=== PATIENT | male | born 1960 | race Caucasian/White ===

== ENCOUNTER 2019-01-16 13:26 | Inpatient (IN) | payer BC ==
[~2019-01-16] VITALS: Ht 188 cm; Wt 128.9 kg
[2019-01-16] MEDS ORDERED: ondansetron/PF 4mg/2ml inj IV PRN (15:35)
[2019-01-16] MEDS ORDERED: ipratropium/albuterol 3ml nebule NEB PRN (15:35)
--- NOTE | 2019-01-16 16:30 | NUR ---
Received report from [facility]. Pt on their way via helicopter
[2019-01-16 17:00] VITALS: BP 109/63
[2019-01-16] MEDS ORDERED: propofol 1000mg/100ml bottle 100 ML IV PRN ×2 (17:13→17:57)
[2019-01-16] MEDS ORDERED: propofol 1000mg/100ml bottle 100 ML IV ONE (17:15)
[2019-01-16] MEDS: FENTANYL-0.9 % NACL/PF 100 ML IV PRN (17:38)
[2019-01-16 17:41] LABS: ABG BASE EXCESS 4.7 mmol/L (-2.0-3.0); ABG HCO3 29.7 mmol/L (22.0-26.0); ABG PCO2 (T) 47.1 mmHg (35.0-48.0); ABG PH (T) 7.418 (7.350-7.450); ABG PO2 (T) 62.5 mmHg (83-108); FCOHb 0.2 % (0.5-1.5); FO2Hb 91.8 % (94-100); MINUTE VOLUME 12 L/min; PEEP 5 cm H2O; RESPIRATORY RATE 16 b/min; RESPIRATORY RATE (OBSERVED) 23 b/min; TIDAL VOLUME 500 mL; TOTAL HEMOGLOBIN 8.6 G/dl (14.0-18.0)
[2019-01-16 17:44] LABS: BASOPHILS % (AUTO) 0.6 % (0-1); EOSINOPHILS % (AUTO) 0.1 % (0-6); HEMATOCRIT 22.4 % (42.0-52.0); HEMOGLOBIN 7.6 g/dl (14.0-17.9); LYMPHOCYTES # (AUTO) 0.2 X10'3 (1.1-4.8); MEAN CORPUSCULAR HEMOGLOBIN 26.9 PG (27.0-31.0); MEAN CORPUSCULAR HGB CONC 34.1 g/dL (33.0-36.5); MEAN PLATELET VOLUME 6.7 FL (7.4-10.4); MONOCYTES # (AUTO) 0.2 X10'3 (0-0.9); MONOCYTES % (AUTO) 3.4 % (2-12); NEUTROPHILS # (AUTO) 6.7 X10'3 (1.8-7.7); NEUTROPHILS % (AUTO) 92.9 % (42-75); PLATELET COUNT 119 X10'3 (140-440); RED BLOOD COUNT 2.83 X10'6 (4.70-6.10); RED CELL DISTRIBUTION WIDTH 18.7 % (11.5-14.5); WHITE BLOOD COUNT 7.2 X10'3 (4.5-11.0)
--- NOTE | 2019-01-16 17:59 | NUR ---
Received pt from REACH team. Pt transferred from [facility] to bed via slideboard. 2 RN skin check performed with NEMO Major. 2 wounds noted on stomach, blanchable redness on sacrum, cellulitis to lower extremities, excoriation on scrotum. Pt extremely edematous. Repositioned with pillows, labs drawn, propofol and fent reinitiated, and pt connected to ventilator. Pt has triple lumen CVL to right IJ and choudhary catheter. Intermittently attempts to move upper extremities but has not opened eyes or responded purposefully. Will pass information on to shift boss RN
[2019-01-16 18:00] LABS: INR 1.4 INR; PARTIAL THROMBOPLASTIN TIME 53 SECONDS (22-32)
[2019-01-16 18:05] LABS: ALANINE AMINOTRANSFERASE 19 U/L (12-78); ALBUMIN 2.7 G/DL (3.4-5.0); ALKALINE PHOSPHATASE 137 IU/L (46-116); AMYLASE 28 U/L (25-115); ANION GAP 9 (8-16); ASPARTATE AMINO TRANSFERASE 28 U/L (10-37); BILIRUBIN,TOTAL 1.1 MG/DL (0.1-1.0); BLOOD UREA NITROGEN 53 MG/DL (7-18); BUN/CREATININE RATIO 17.3 (5.4-32.0); CALCIUM 8.7 MG/DL (8.5-10.1); CHLORIDE 88 MMOL/L (99-107); CREATININE 3.06 MG/DL (0.60-1.10); GLUCOSE 165 MG/DL (70-104); LIPASE 207 U/L (73-393); MAGNESIUM 2.2 MG/DL (1.5-2.4); PHOSPHORUS 2.6 MG/DL (2.3-4.5); POTASSIUM 3.2 MMOL/L (3.5-5.1); SODIUM 127 MMOL/L (135-145); TOTAL CARBON DIOXIDE 29.6 MMOL/L (24-32); TOTAL PROTEIN 5.4 G/DL (6.4-8.2); eGFR 21 ML/MIN
--- NOTE | 2019-01-16 18:27 | NUR ---
Problems reprioritized. Patient report given, questions answered & plan of care reviewed with NEMO Davis.
[2019-01-16 19:00] VITALS: BP 93/49
[2019-01-16 19:28] LABS: ANISOCYTOSIS 2+; MICROCYTOSIS 1+; PLATELET ESTIMATE DECREASED; TOTAL CELLS COUNTED 100
[2019-01-16 19:29] LABS: POIKILOCYTOSIS FEW; POLYCHROMASIA FEW; TARGET CELLS 1+
[2019-01-16 20:00] VITALS: BP 99/47
[2019-01-16] MEDS ORDERED: docusate sod 100mg capsule PO SCH (20:00)
[2019-01-16] MEDS: furosemide inj 100 ML IV SCH (20:01)
[2019-01-16 22:00] VITALS: BP 96/47
[2019-01-16 23:00] VITALS: BP 96/46
[2019-01-16] MEDS: propofol 1000mg/100ml bottle 100 ML IV PRN (23:40)
[2019-01-17] VITALS (23 sets, daily range): BP systolic 77–120; BP diastolic 40–73
[2019-01-17] MEDS ORDERED: piperacillin/tazo 3.375gm/50ml 50 ML IV SCH
[2019-01-17 01:32] LABS: HEMOGLOBIN A1C 5.1 % (4.5-6.2)
[2019-01-17 01:56] LABS: CLARITY,URINE CLOUDY (Clear); COLOR,URINE YELLOW (Yellow); GLUCOSE, URINE NEGATIVE (Neg); KETONES,URINE TRACE mg/dl (Neg); LEUKOCYTE ESTERASE ,URINE SMALL (Neg); NITRITES, URINE NEGATIVE (Neg); OCCULT BLOOD,URINE MODERATE (Neg); PROTEIN,URINE 100 mg/dl (Neg); UROBILINOGEN,URINE 0.2 E.U/dL (0.2-1.0)
[2019-01-17 02:00] LABS: BASOPHILS % (AUTO) 0.3 % (0-1); EOSINOPHILS # (AUTO) 0.1 X10'3 (0-0.9); EOSINOPHILS % (AUTO) 1.3 % (0-6); HEMATOCRIT 22.1 % (42.0-52.0); HEMOGLOBIN 7.4 g/dl (14.0-17.9); LYMPHOCYTES # (AUTO) 0.3 X10'3 (1.1-4.8); LYMPHOCYTES % (AUTO) 5.5 % (21-51); MEAN CORPUSCULAR HEMOGLOBIN 26.8 PG (27.0-31.0); MEAN CORPUSCULAR HGB CONC 33.6 g/dL (33.0-36.5); MEAN CORPUSCULAR VOLUME 79.5 FL (78-98); MEAN PLATELET VOLUME 7.1 FL (7.4-10.4); MONOCYTES # (AUTO) 0.2 X10'3 (0-0.9); NEUTROPHILS # (AUTO) 4.6 X10'3 (1.8-7.7); NEUTROPHILS % (AUTO) 88.9 % (42-75); PLATELET COUNT 98 X10'3 (140-440); RED BLOOD COUNT 2.78 X10'6 (4.70-6.10); RED CELL DISTRIBUTION WIDTH 18.4 % (11.5-14.5); WHITE BLOOD COUNT 5.1 X10'3 (4.5-11.0)
[2019-01-17 02:05] LABS: UA COLLECTION TYPE FOLEY CATH
[2019-01-17 02:07] LABS: BACTERIA,URINE NONE SEEN /HPF (Neg); MUCUS STRANDS FEW /LPF (Neg); SQUAMOUS EPITHELIAL CELL,UR NONE SEEN /LPF (FEW); YEAST MANY /HPF (NEGATIVE)
[2019-01-17 02:17] LABS: ALANINE AMINOTRANSFERASE 17 U/L (12-78); ALBUMIN 2.5 G/DL (3.4-5.0); ALKALINE PHOSPHATASE 131 IU/L (46-116); ANION GAP 6 (8-16); ASPARTATE AMINO TRANSFERASE 27 U/L (10-37); BLOOD UREA NITROGEN 55 MG/DL (7-18); BUN/CREATININE RATIO 17.2 (5.4-32.0); CALCIUM 8.4 MG/DL (8.5-10.1); CHLORIDE 89 MMOL/L (99-107); CREATININE 3.19 MG/DL (0.60-1.10); GLUCOSE 137 MG/DL (70-104); MAGNESIUM 2.1 MG/DL (1.5-2.4); PHOSPHORUS 2.4 MG/DL (2.3-4.5); SODIUM 127 MMOL/L (135-145); TOTAL CARBON DIOXIDE 32.2 MMOL/L (24-32); TOTAL PROTEIN 5.1 G/DL (6.4-8.2); eGFR 20 ML/MIN
[2019-01-17 02:19] LABS: POTASSIUM 2.9 MMOL/L (3.5-5.1)
[2019-01-17 02:23] LABS: ANISOCYTOSIS 2+; LARGE PLATELETS FEW; MICROCYTOSIS 1+; PLATELET ESTIMATE DECREASED; TARGET CELLS 1+
[2019-01-17 02:24] LABS: POIKILOCYTOSIS FEW
[2019-01-17] MEDS ORDERED: potassium Cl 40MEQ/250ML bag 250 ML IV PRN (02:30)
[2019-01-17] MEDS ORDERED: doxycycline inj 100 MG in normal saline 100ml IV soln 100 ML IV SCH (04:00)
[2019-01-17 04:01] LABS: ABG BASE EXCESS 5.7 mmol/L (-2.0-3.0); ABG HCO3 30.4 mmol/L (22.0-26.0); ABG OXYGEN SATURATION 94.3 % (95-98); ABG PCO2 (T) 45.5 mmHg (35.0-48.0); ABG PH (T) 7.442 (7.350-7.450); ABG PO2 (T) 71.4 mmHg (83-108); ALLEN'S TEST Positive; FCOHb 0.3 % (0.5-1.5); FMetHb 0.1 % (0.3-1.12); FO2Hb 93.9 % (94-100); MINUTE VOLUME 9 L/min; PATIENT TEMPERATURE 36.9; PEEP 5 cm H2O; RESPIRATORY RATE 16 b/min; RESPIRATORY RATE (OBSERVED) 17 b/min; TIDAL VOLUME 500 mL; TOTAL HEMOGLOBIN 8.4 G/dl (14.0-18.0)
--- NOTE | 2019-01-17 07:11 | NUR ---
Patient in room ICU 2042. I have received report from Susan and had the opportunity to ask questions and assume patient care.
[2019-01-17] MEDS: docusate sodium 100mg/10ml UD cup PO SCH ×2 (09:08→20:45)
[2019-01-17] MEDS: pantoprazole 40 MG vial IV SCH (09:08)
[2019-01-17] MEDS: FENTANYL-0.9 % NACL/PF 100 ML IV PRN (09:09)
[2019-01-17 09:45] LABS: ALBUMIN 2.4 G/DL (3.4-5.0); ANION GAP 8 (8-16); BLOOD UREA NITROGEN 55 MG/DL (7-18); BUN/CREATININE RATIO 16.7 (5.4-32.0); CALCIUM 8.4 MG/DL (8.5-10.1); CHLORIDE 90 MMOL/L (99-107); GLUCOSE 116 MG/DL (70-104); POTASSIUM 3.5 MMOL/L (3.5-5.1); SODIUM 128 MMOL/L (135-145); TOTAL CARBON DIOXIDE 29.7 MMOL/L (24-32); eGFR 19 ML/MIN
[2019-01-17] MEDS: propofol 1000mg/100ml bottle 100 ML IV PRN ×2 (10:21→21:32)
[2019-01-17] MEDS ORDERED: PIOG30TA71 PO (10:36)
[2019-01-17] MEDS ORDERED: NALO25TA PO (10:36)
[2019-01-17] MEDS ORDERED: OXYC5CAP19 PO (10:36)
[2019-01-17] MEDS ORDERED: METF-438 PO (10:36)
[2019-01-17] MEDS ORDERED: FURO-149 PO (10:36)
[2019-01-17] MEDS ORDERED: FERR324T4 PO (10:36)
[2019-01-17] MEDS ORDERED: GABA600T13 PO (10:36)
[2019-01-17] MEDS ORDERED: ALBU8.5H8 INH (10:36)
[2019-01-17] MEDS ORDERED: POTA-82 PO (10:36)
[2019-01-17] MEDS ORDERED: SPIR25TA5 PO (10:36)
[2019-01-17] MEDS ORDERED: non-formulary drug (Albuterol Sulfate (Proair Hfa) 2 PUFFS) INH PRN (11:40)
--- NOTE | 2019-01-17 11:44 | NUR ---
tube feeding consult. Patient transfer from [facility] with acute respiratory failure, TUAN, LYNN, cirrhosis, and is currently intubated. Pt is edematous and fluid overloaded. Pending CVVH to start today. tube feedings per OG tube will begin today to meet patient's needs on vent and with CVVH. Recommend: 1. continues tube feeding per OG tube using Vital High Protein at 90 ml/hr to provide total volume of 2160 ml, 2160 cals, 189 gm protein, and 1806 ml water. 2. Prealbumin Q Monday and 3. daily weights 4. no additional water flush with hyponatremia, sodium is 127 5. when extubated advance diet as medically indicated to heart healthy Addendum: 01/17/19 at [address] Amended: Links added.
[2019-01-17] MEDS ORDERED: albuterol 2.5 MG/3 ML nebule NEB PRN (11:55)
[2019-01-17] MEDS: rifaximin 550mg tablet PO SCH ×2 (12:04→20:45)
[2019-01-17] MEDS: piperacillin/tazobactam inj. 3.375 GM in NS 50ml IV SCH ×2 (12:04→23:38)
[2019-01-17] MEDS: ferrous sulfate 325mg tablet PO SCH ×2 (12:08→16:41)
[2019-01-17] MEDS ORDERED: FERROUS SULFATE PO SCH (13:00)
[2019-01-17 13:55] LABS: ALBUMIN 2.3 G/DL (3.4-5.0); ANION GAP 9 (8-16); BLOOD UREA NITROGEN 54 MG/DL (7-18); CALCIUM 8.4 MG/DL (8.5-10.1); CHLORIDE 90 MMOL/L (99-107); CREATININE 3.37 MG/DL (0.60-1.10); GLUCOSE 120 MG/DL (70-104); POTASSIUM 3.2 MMOL/L (3.5-5.1); SODIUM 128 MMOL/L (135-145); eGFR 19 ML/MIN
[2019-01-17 14:08] LABS: PREALBUMIN 7.5 MG/DL (19-36)
[2019-01-17] MEDS ORDERED: non-formulary drug (Gabapentin 1 TAB) PO SCH (16:00)
[2019-01-17] MEDS: gabapentin 300mg capsule PO SCH ×2 (16:42→23:38)
[2019-01-17] MEDS: furosemide inj 100 ML IV SCH (16:43)
[2019-01-17] MEDS ORDERED: Duosol 4K/3 Ca (w/calcium) 5,000 ML HE SCH (17:21)
[2019-01-17] MEDS ORDERED: calcium chloride inj. 1,000 MG in normal saline 100ml IV soln 100 ML IV PRN (17:25)
--- NOTE | 2019-01-17 17:27 | NUR ---
1730- Manjinder placed in right groin. Lasix gtt to stop when CVVH started. BP remains low 81/40 (50). aware. No heparin with CVVH per Dr Dove.
[2019-01-17] MEDS: BICARB DIALYSIS W/CALCIUM SOL 5,000 ML HE SCH ×3 (17:57→17:59)
--- NOTE | 2019-01-17 18:30 | NUR ---
Patient in room ICU 2042. I have received report from Joseph CHESTER and had the opportunity to ask questions and assume patient care.
--- NOTE | 2019-01-17 18:39 | NUR ---
Problems reprioritized. Patient report given, questions answered & plan of care reviewed with
[2019-01-17] MEDS ORDERED: ipratropium/albuterol 3ml nebule NEB PRN (19:15)
--- NOTE | 2019-01-17 20:36 | NUR ---
Pt converted into A-Fib with a HR of 105-120 at 1999. Discussed with Eloina DAIRY NUTRITION CONSULTANT. Will continue to monitor for increased HR, or conversion back into SR/SB.
[2019-01-17] MEDS: lactobacillus rhamnosus 10,000 MMU CELLS/CAPSULE PO SCH (20:45)
[2019-01-17] MEDS: NORepinephrine 8mg/ 250ml NS 250 ML IV SCH (20:46)
[2019-01-17] MEDS: ipratropium/albuterol 3ml nebule NEB SCH (23:00)
--- NOTE | 2019-01-17 23:00 | NUR ---
Pt's temperature was not rising with application of multiple hot blankets. After confirmation of his bladder temperature with an axillary temp, the patient was provided a bear hugger blanket. Will continue to monitor temperature.
[2019-01-17] MEDS ORDERED: amiodarone 150mg/dext, iso-os 100 ML IV ONE (23:25)
--- NOTE | 2019-01-17 23:30 | NUR ---
Pt's HR increases to 150s-170s after breathing treatment. September PIPE BOWLS PAINT TRIMMER was informed that Pt is still in A-Fib w/RVR. She ordered Amio to be started, beginning with a loading dose.
[2019-01-17] MEDS: amiodarone/D5 360MG/200ML BAG 200 ML IV SCH (23:53)
[2019-01-18] VITALS (24 sets, daily range): BP systolic 82–111; BP diastolic 41–62
[2019-01-18] MEDS: BICARB DIALYSIS W/CALCIUM SOL 5,000 ML HE SCH ×13 (00:08→23:19)
[2019-01-18 02:15] LABS: BASOPHILS % (AUTO) 0.3 % (0-1); EOSINOPHILS % (AUTO) 0.1 % (0-6); HEMATOCRIT 25.4 % (42.0-52.0); HEMOGLOBIN 8.5 g/dl (14.0-17.9); LYMPHOCYTES # (AUTO) 0.4 X10'3 (1.1-4.8); LYMPHOCYTES % (AUTO) 3.2 % (21-51); MEAN CORPUSCULAR HEMOGLOBIN 26.7 PG (27.0-31.0); MEAN CORPUSCULAR HGB CONC 33.6 g/dL (33.0-36.5); MEAN CORPUSCULAR VOLUME 79.4 FL (78-98); MEAN PLATELET VOLUME 7.7 FL (7.4-10.4); MONOCYTES # (AUTO) 0.5 X10'3 (0-0.9); MONOCYTES % (AUTO) 3.6 % (2-12); NEUTROPHILS # (AUTO) 12.2 X10'3 (1.8-7.7); NEUTROPHILS % (AUTO) 92.8 % (42-75); PLATELET COUNT 138 X10'3 (140-440); RED CELL DISTRIBUTION WIDTH 18.7 % (11.5-14.5); WHITE BLOOD COUNT 13.1 X10'3 (4.5-11.0)
[2019-01-18 02:24] LABS: ALANINE AMINOTRANSFERASE 16 U/L (12-78); ALBUMIN 2.4 G/DL (3.4-5.0); ALBUMIN/GLOBULIN RATIO 0.9 (1.1-1.5); ALKALINE PHOSPHATASE 153 IU/L (46-116); ANION GAP 9 (8-16); ASPARTATE AMINO TRANSFERASE 28 U/L (10-37); BILIRUBIN,TOTAL 1.4 MG/DL (0.1-1.0); BLOOD UREA NITROGEN 43 MG/DL (7-18); BUN/CREATININE RATIO 15.9 (5.4-32.0); CALCIUM 8.8 MG/DL (8.5-10.1); CHLORIDE 91 MMOL/L (99-107); GLUCOSE 138 MG/DL (70-104); POTASSIUM 3.2 MMOL/L (3.5-5.1); SODIUM 130 MMOL/L (135-145); TOTAL CARBON DIOXIDE 30.1 MMOL/L (24-32); TOTAL PROTEIN 5.2 G/DL (6.4-8.2); eGFR 25 ML/MIN
[2019-01-18 02:26] LABS: PHOSPHORUS 1.7 MG/DL (2.3-4.5); TROPONIN I < 0.04 NG/ML (0.0-0.05)
[2019-01-18 02:30] LABS: ANISOCYTOSIS 2+; MICROCYTOSIS 1+; PLATELET ESTIMATE DECREASED
[2019-01-18] MEDS: ipratropium/albuterol 3ml nebule NEB SCH ×2 (03:28→07:00)
[2019-01-18] MEDS: FENTANYL-0.9 % NACL/PF 100 ML IV PRN ×2 (03:38→16:28)
[2019-01-18 03:46] LABS: ABG BASE EXCESS 3.2 mmol/L (-2.0-3.0); ABG HCO3 27.6 mmol/L (22.0-26.0); ABG OXYGEN SATURATION 93.2 % (95-98); ABG PCO2 (T) 39.6 mmHg (35.0-48.0); ABG PH (T) 7.457 (7.350-7.450); ABG PO2 (T) 61.2 mmHg (83-108); ALLEN'S TEST Positive; FCOHb 0.4 % (0.5-1.5); FMetHb 0.2 % (0.3-1.12); FO2Hb 92.6 % (94-100); MINUTE VOLUME 11 L/min; PATIENT TEMPERATURE 35.8; PEEP 5 cm H2O; RESPIRATORY RATE 16 b/min; RESPIRATORY RATE (OBSERVED) 18 b/min; TIDAL VOLUME 500 mL; TOTAL HEMOGLOBIN 9.4 G/dl (14.0-18.0)
[2019-01-18] MEDS: potassium Cl 20mEq/100mL bag 100 ML IV PRN ×4 (04:12→22:43)
--- NOTE | 2019-01-18 05:00 | NUR ---
Pt's temp is returning to normal range. Currently at 36.1 C, up from a low of 34.7 C at the start of the shift.
--- NOTE | 2019-01-18 05:34 | NUR ---
Consistently throughout the night, whenever the patient received a breathing treatment his HR would have runs of RVR into the 150-170 range. An hour or two after the breathing treatment was completed the patient's HR would mostly be in the 120s-130s.
[2019-01-18] MEDS: amiodarone/D5 360MG/200ML BAG 200 ML IV SCH ×3 (05:46→16:28)
[2019-01-18] MEDS: propofol 1000mg/100ml bottle 100 ML IV PRN ×3 (05:46→21:40)
--- NOTE | 2019-01-18 05:53 | NUR ---
Due to patient being intubated and on sedation, he was unable to answer admission questions. Patient does not have any family members available to question during the NOC shift. Belongings list was updated. Height and Weight were updated. All other questions will have to be filled out when a family member is available or the patient is extubated.
[2019-01-18] MEDS: MOVANTIK 25 MG PO SCH (08:00)
[2019-01-18] MEDS ORDERED: non-formulary drug (Naloxegol Oxalate (Movantik) 1 TAB) PO SCH (08:00)
[2019-01-18] MEDS: lactobacillus rhamnosus 10,000 MMU CELLS/CAPSULE PO SCH ×2 (08:14→20:56)
[2019-01-18] MEDS: docusate sodium 100mg/10ml UD cup PO SCH ×2 (08:14→20:56)
[2019-01-18] MEDS: gabapentin 300mg capsule PO SCH ×3 (08:14→23:55)
[2019-01-18] MEDS: ferrous sulfate 325mg tablet PO SCH ×3 (08:14→16:59)
[2019-01-18] MEDS: rifaximin 550mg tablet PO SCH ×2 (08:14→20:56)
[2019-01-18] MEDS: pantoprazole 40 MG vial IV SCH (08:14)
[2019-01-18] MEDS: piperacillin/tazobactam inj. 3.375 GM in NS 50ml IV SCH ×3 (08:56→23:55)
[2019-01-18] MEDS: sodium phosphate inj. 30 MMOL in normal saline 250ml IV soln 250 ML IV PRN (08:56)
[2019-01-18] MEDS ORDERED: albuterol 2.5 MG/3 ML nebule NEB PRN (10:30)
[2019-01-18] MEDS ORDERED: levalbuterol 0.63mg/3ml nebule IH PRN (10:40)
[2019-01-18 10:56] LABS: ALBUMIN 2.4 G/DL (3.4-5.0); ANION GAP 9 (8-16); BLOOD UREA NITROGEN 34 MG/DL (7-18); BUN/CREATININE RATIO 15.9 (5.4-32.0); CALCIUM 9.1 MG/DL (8.5-10.1); CHLORIDE 95 MMOL/L (99-107); CREATININE 2.14 MG/DL (0.60-1.10); GLUCOSE 160 MG/DL (70-104); POTASSIUM 3.6 MMOL/L (3.5-5.1); SODIUM 132 MMOL/L (135-145); TOTAL CARBON DIOXIDE 28.5 MMOL/L (24-32); eGFR 32 ML/MIN
[2019-01-18 13:49] LABS: BASOPHILS # (AUTO) 0.1 X10'3 (0-0.2); BASOPHILS % (AUTO) 0.8 % (0-1); EOSINOPHILS # (AUTO) 0.1 X10'3 (0-0.9); EOSINOPHILS % (AUTO) 0.4 % (0-6); HEMATOCRIT 25.1 % (42.0-52.0); HEMOGLOBIN 8.4 g/dl (14.0-17.9); LYMPHOCYTES # (AUTO) 0.5 X10'3 (1.1-4.8); LYMPHOCYTES % (AUTO) 3.4 % (21-51); MEAN CORPUSCULAR HEMOGLOBIN 26.7 PG (27.0-31.0); MEAN CORPUSCULAR HGB CONC 33.7 g/dL (33.0-36.5); MEAN CORPUSCULAR VOLUME 79.2 FL (78-98); MEAN PLATELET VOLUME 7.1 FL (7.4-10.4); MONOCYTES # (AUTO) 0.6 X10'3 (0-0.9); MONOCYTES % (AUTO) 4.2 % (2-12); NEUTROPHILS # (AUTO) 12.9 X10'3 (1.8-7.7); NEUTROPHILS % (AUTO) 91.2 % (42-75); PLATELET COUNT 139 X10'3 (140-440); RED BLOOD COUNT 3.17 X10'6 (4.70-6.10); RED CELL DISTRIBUTION WIDTH 18.9 % (11.5-14.5); WHITE BLOOD COUNT 14.2 X10'3 (4.5-11.0)
[2019-01-18 13:52] LABS: ALBUMIN 2.3 G/DL (3.4-5.0); ANION GAP 6 (8-16); BLOOD UREA NITROGEN 31 MG/DL (7-18); BUN/CREATININE RATIO 15.3 (5.4-32.0); CHLORIDE 98 MMOL/L (99-107); CREATININE 2.02 MG/DL (0.60-1.10); GLUCOSE 169 MG/DL (70-104); MAGNESIUM 1.7 MG/DL (1.5-2.4); POTASSIUM 3.5 MMOL/L (3.5-5.1); SODIUM 133 MMOL/L (135-145); TOTAL CARBON DIOXIDE 29.4 MMOL/L (24-32); eGFR 34 ML/MIN
[2019-01-18 14:05] LABS: PHOSPHORUS 1.7 MG/DL (2.3-4.5)
[2019-01-18] MEDS: magnesium 4gm in 100ml NS 100 ML IV PRN (14:31)
--- NOTE | 2019-01-18 14:41 | NUR ---
0600 Received report from Chaz. 6423 Pt converted from a rapid afib to SR with PAC's. 1000 rounds- change albuterol to xopenex PRN. US of abdomen complete. Paracentesis on hold (non emergent). tolerating CVVH well. [id number] troubleshooting CVVH, adjusted fluid output at 1300. 1300- Labs drawn- phosphorus level 2.0 meets parameters for replacement, however a.m. replacement infusing. Re check phos levels with 1900 labs. Mag 1.7 will infuse when phos complete due to incompatibilities. ion ca 1.16 no replacement needed, K 3.5.
[2019-01-18] MEDS ORDERED: lactulose 20gm/30ml cup PO PRN (15:35)
[2019-01-18] MEDS ORDERED: bisacodyl 10mg suppository rectal RC PRN (15:35)
[2019-01-18] MEDS: NORepinephrine 8mg/ 250ml NS 250 ML IV SCH (16:27)
[2019-01-18] MEDS ORDERED: MESSAGE TO PHARMACY PO ONE (19:55)
[2019-01-18] MEDS ORDERED: dextrose 50%-water 50ml dispensing syringe IV PRN ×2 (19:55)
[2019-01-18 20:25] LABS: BASOPHILS % (AUTO) 0.3 % (0-1); EOSINOPHILS # (AUTO) 0.1 X10'3 (0-0.9); EOSINOPHILS % (AUTO) 0.6 % (0-6); HEMATOCRIT 24.7 % (42.0-52.0); HEMOGLOBIN 8.2 g/dl (14.0-17.9); LYMPHOCYTES # (AUTO) 0.6 X10'3 (1.1-4.8); LYMPHOCYTES % (AUTO) 5.2 % (21-51); MEAN CORPUSCULAR HEMOGLOBIN 26.3 PG (27.0-31.0); MEAN CORPUSCULAR VOLUME 79.6 FL (78-98); MEAN PLATELET VOLUME 7.5 FL (7.4-10.4); MONOCYTES # (AUTO) 0.5 X10'3 (0-0.9); MONOCYTES % (AUTO) 4.1 % (2-12); NEUTROPHILS % (AUTO) 89.8 % (42-75); PLATELET COUNT 138 X10'3 (140-440); RED BLOOD COUNT 3.11 X10'6 (4.70-6.10); RED CELL DISTRIBUTION WIDTH 18.7 % (11.5-14.5); WHITE BLOOD COUNT 12.3 X10'3 (4.5-11.0)
[2019-01-18 20:47] LABS: ALBUMIN 2.1 G/DL (3.4-5.0); ANION GAP 6 (8-16); BLOOD UREA NITROGEN 26 MG/DL (7-18); BUN/CREATININE RATIO 15.3 (5.4-32.0); CHLORIDE 100 MMOL/L (99-107); GLUCOSE 163 MG/DL (70-104); MAGNESIUM 2.2 MG/DL (1.5-2.4); PHOSPHORUS 1.5 MG/DL (2.3-4.5); POTASSIUM 3.4 MMOL/L (3.5-5.1); SODIUM 134 MMOL/L (135-145); TOTAL CARBON DIOXIDE 28.3 MMOL/L (24-32); eGFR 42 ML/MIN
[2019-01-18] MEDS: heparin, porcine 5000 units/ml vial SQ SCH (20:56)
[2019-01-18] MEDS: insulin glargine (Lantus) pen - multi-dose SQ SCH (21:00)
[2019-01-19] VITALS (24 sets, daily range): BP systolic 86–121; BP diastolic 46–61
[2019-01-19] MEDS: insulin regular, human vial - multi-dose SQ SCH ×4 (01:30→20:33)
[2019-01-19 01:58] LABS: BASOPHILS # (AUTO) 0.1 X10'3 (0-0.2); BASOPHILS % (AUTO) 0.5 % (0-1); EOSINOPHILS % (AUTO) 0 % (0-6); HEMOGLOBIN 8.2 g/dl (14.0-17.9); LYMPHOCYTES # (AUTO) 0.7 X10'3 (1.1-4.8); MEAN CORPUSCULAR HEMOGLOBIN 26.1 PG (27.0-31.0); MEAN CORPUSCULAR HGB CONC 32.7 g/dL (33.0-36.5); MEAN CORPUSCULAR VOLUME 79.9 FL (78-98); MEAN PLATELET VOLUME 7.6 FL (7.4-10.4); MONOCYTES # (AUTO) 0.4 X10'3 (0-0.9); MONOCYTES % (AUTO) 3.3 % (2-12); NEUTROPHILS % (AUTO) 90.2 % (42-75); PLATELET COUNT 127 X10'3 (140-440); RED BLOOD COUNT 3.13 X10'6 (4.70-6.10); RED CELL DISTRIBUTION WIDTH 18.8 % (11.5-14.5); WHITE BLOOD COUNT 12.2 X10'3 (4.5-11.0)
[2019-01-19 02:02] LABS: ALBUMIN 2.2 G/DL (3.4-5.0); ANION GAP 5 (8-16); BLOOD UREA NITROGEN 24 MG/DL (7-18); BUN/CREATININE RATIO 16.4 (5.4-32.0); CHLORIDE 101 MMOL/L (99-107); CREATININE 1.46 MG/DL (0.60-1.10); GLUCOSE 159 MG/DL (70-104); MAGNESIUM 2.1 MG/DL (1.5-2.4); PHOSPHORUS 1.3 MG/DL (2.3-4.5); POTASSIUM 3.8 MMOL/L (3.5-5.1); SODIUM 135 MMOL/L (135-145); TOTAL CARBON DIOXIDE 29.3 MMOL/L (24-32); eGFR 50 ML/MIN
[2019-01-19] MEDS: sodium phosphate inj. 30 MMOL in normal saline 250ml IV soln 250 ML IV PRN ×2 (03:27→16:23)
[2019-01-19] MEDS: propofol 1000mg/100ml bottle 100 ML IV PRN ×3 (03:44→21:58)
[2019-01-19 04:20] LABS: ABG BASE EXCESS 4.1 mmol/L (-2.0-3.0); ABG HCO3 28.6 mmol/L (22.0-26.0); ABG OXYGEN SATURATION 93.5 % (95-98); ABG PCO2 (T) 42.3 mmHg (35.0-48.0); ABG PH (T) 7.446 (7.350-7.450); ABG PO2 (T) 64.4 mmHg (83-108); ALLEN'S TEST Positive; FCOHb 0.1 % (0.5-1.5); FMetHb 0.3 % (0.3-1.12); FO2Hb 93.1 % (94-100); MINUTE VOLUME 10 L/min; PATIENT TEMPERATURE 36.7; PEEP 5 cm H2O; RESPIRATORY RATE 16 b/min; RESPIRATORY RATE (OBSERVED) 19 b/min; TIDAL VOLUME 500 mL; TOTAL HEMOGLOBIN 9.1 G/dl (14.0-18.0)
[2019-01-19] MEDS: potassium Cl 20mEq/100mL bag 100 ML IV PRN ×4 (04:40→21:12)
[2019-01-19] MEDS: BICARB DIALYSIS W/CALCIUM SOL 5,000 ML HE SCH ×7 (04:52→22:43)
[2019-01-19] MEDS: amiodarone/D5 360MG/200ML BAG 200 ML IV SCH ×4 (04:54→16:39)
[2019-01-19] MEDS: MOVANTIK 25 MG PO SCH (08:00)
[2019-01-19 08:37] LABS: BASOPHILS # (AUTO) 0.2 X10'3 (0-0.2); BASOPHILS % (AUTO) 1.5 % (0-1); EOSINOPHILS % (AUTO) 0.1 % (0-6); HEMATOCRIT 24.5 % (42.0-52.0); HEMOGLOBIN 8.2 g/dl (14.0-17.9); LYMPHOCYTES # (AUTO) 0.7 X10'3 (1.1-4.8); LYMPHOCYTES % (AUTO) 5.7 % (21-51); MEAN CORPUSCULAR HEMOGLOBIN 26.6 PG (27.0-31.0); MEAN CORPUSCULAR HGB CONC 33.4 g/dL (33.0-36.5); MEAN CORPUSCULAR VOLUME 79.4 FL (78-98); MEAN PLATELET VOLUME 7.2 FL (7.4-10.4); MONOCYTES # (AUTO) 0.6 X10'3 (0-0.9); MONOCYTES % (AUTO) 5.2 % (2-12); NEUTROPHILS # (AUTO) 10.2 X10'3 (1.8-7.7); NEUTROPHILS % (AUTO) 87.5 % (42-75); PLATELET COUNT 112 X10'3 (140-440); RED BLOOD COUNT 3.08 X10'6 (4.70-6.10); RED CELL DISTRIBUTION WIDTH 19.4 % (11.5-14.5); WHITE BLOOD COUNT 11.6 X10'3 (4.5-11.0)
[2019-01-19 08:52] LABS: ALBUMIN 2.1 G/DL (3.4-5.0); ANION GAP 6 (8-16); BLOOD UREA NITROGEN 21 MG/DL (7-18); BUN/CREATININE RATIO 15.8 (5.4-32.0); CHLORIDE 102 MMOL/L (99-107); CREATININE 1.33 MG/DL (0.60-1.10); GLUCOSE 172 MG/DL (70-104); PHOSPHORUS 2.2 MG/DL (2.3-4.5); SODIUM 135 MMOL/L (135-145); TOTAL CARBON DIOXIDE 26.9 MMOL/L (24-32); eGFR 56 ML/MIN
[2019-01-19] MEDS: ferrous sulfate 325mg tablet PO SCH ×3 (09:27→16:26)
[2019-01-19] MEDS: docusate sodium 100mg/10ml UD cup PO SCH ×2 (09:27→19:50)
[2019-01-19] MEDS: gabapentin 300mg capsule PO SCH ×2 (09:27→16:26)
[2019-01-19] MEDS: rifaximin 550mg tablet PO SCH ×2 (09:27→19:50)
[2019-01-19] MEDS: pantoprazole 40 MG vial IV SCH (09:27)
[2019-01-19] MEDS: heparin, porcine 5000 units/ml vial SQ SCH ×2 (09:27→19:50)
[2019-01-19] MEDS: piperacillin/tazobactam inj. 3.375 GM in NS 50ml IV SCH ×2 (09:28→16:33)
[2019-01-19] MEDS: lactobacillus rhamnosus 10,000 MMU CELLS/CAPSULE PO SCH ×2 (09:28→19:50)
[2019-01-19] MEDS: FENTANYL-0.9 % NACL/PF 100 ML IV PRN (09:28)
[2019-01-19 09:57] LABS: NUCLEATED RED BLOOD CELLS 1 /100WBC (0-0); TOTAL CELLS COUNTED 100
[2019-01-19 10:01] LABS: ANISOCYTOSIS 2+; MICROCYTOSIS 1+; PLATELET ESTIMATE DECREASED
[2019-01-19 10:03] LABS: POLYCHROMASIA 1+; STOMATOCYTES FEW
--- NOTE | 2019-01-19 11:00 | NUR ---
Dr. Rahman at the bedside, updated him on patient status, he wants to continue POC and is ok with -50 ml an hour of fluid excess, he stated that if we can pull more and the BP tolerates that this is ok too. He spoke with the brother whom was at the bedside also and told him we would continue with what we are doing at this time. Brother would like to contact other family members and make them aware of the patients status.
--- NOTE | 2019-01-19 12:00 | NUR ---
machine stopped for filter change, dialysis nurse at the bedside
--- NOTE | 2019-01-19 12:10 | NUR ---
machine down from 1200 to 1310
[2019-01-19 14:37] LABS: BASOPHILS # (AUTO) 0.1 X10'3 (0-0.2); BASOPHILS % (AUTO) 0.8 % (0-1); EOSINOPHILS % (AUTO) 0.5 % (0-6); HEMATOCRIT 24.1 % (42.0-52.0); LYMPHOCYTES # (AUTO) 0.5 X10'3 (1.1-4.8); MEAN CORPUSCULAR HEMOGLOBIN 26.6 PG (27.0-31.0); MEAN CORPUSCULAR HGB CONC 33.3 g/dL (33.0-36.5); MEAN CORPUSCULAR VOLUME 79.8 FL (78-98); MONOCYTES # (AUTO) 0.4 X10'3 (0-0.9); MONOCYTES % (AUTO) 4.1 % (2-12); NEUTROPHILS # (AUTO) 9.5 X10'3 (1.8-7.7); NEUTROPHILS % (AUTO) 89.6 % (42-75); PLATELET COUNT 96 X10'3 (140-440); RED BLOOD COUNT 3.02 X10'6 (4.70-6.10); RED CELL DISTRIBUTION WIDTH 18.9 % (11.5-14.5); WHITE BLOOD COUNT 10.5 X10'3 (4.5-11.0)
[2019-01-19 14:54] LABS: ANION GAP 10 (8-16); BLOOD UREA NITROGEN 18 MG/DL (7-18); BUN/CREATININE RATIO 15.1 (5.4-32.0); CHLORIDE 101 MMOL/L (99-107); CREATININE 1.19 MG/DL (0.60-1.10); GLUCOSE 155 MG/DL (70-104); MAGNESIUM 1.9 MG/DL (1.5-2.4); PHOSPHORUS 1.8 MG/DL (2.3-4.5); POTASSIUM 3.7 MMOL/L (3.5-5.1); SODIUM 137 MMOL/L (135-145); TOTAL CARBON DIOXIDE 26.4 MMOL/L (24-32); eGFR 63 ML/MIN
[2019-01-19] MEDS: NORepinephrine 8mg/ 250ml NS 250 ML IV SCH (16:41)
[2019-01-19 19:19] LABS: BASOPHILS # (AUTO) 0.1 X10'3 (0-0.2); BASOPHILS % (AUTO) 0.6 % (0-1); EOSINOPHILS % (AUTO) 0.3 % (0-6); HEMOGLOBIN 8.1 g/dl (14.0-17.9); LYMPHOCYTES # (AUTO) 0.6 X10'3 (1.1-4.8); LYMPHOCYTES % (AUTO) 4.7 % (21-51); MEAN CORPUSCULAR HEMOGLOBIN 26.8 PG (27.0-31.0); MEAN CORPUSCULAR HGB CONC 33.7 g/dL (33.0-36.5); MEAN CORPUSCULAR VOLUME 79.6 FL (78-98); MEAN PLATELET VOLUME 7.2 FL (7.4-10.4); MONOCYTES # (AUTO) 0.7 X10'3 (0-0.9); MONOCYTES % (AUTO) 5.7 % (2-12); NEUTROPHILS # (AUTO) 11.7 X10'3 (1.8-7.7); NEUTROPHILS % (AUTO) 88.7 % (42-75); PLATELET COUNT 102 X10'3 (140-440); RED BLOOD COUNT 3.02 X10'6 (4.70-6.10); RED CELL DISTRIBUTION WIDTH 19.1 % (11.5-14.5); WHITE BLOOD COUNT 13.2 X10'3 (4.5-11.0)
[2019-01-19 19:27] LABS: ALBUMIN 2.1 G/DL (3.4-5.0); ANION GAP 6 (8-16); BLOOD UREA NITROGEN 17 MG/DL (7-18); BUN/CREATININE RATIO 16.8 (5.4-32.0); CHLORIDE 102 MMOL/L (99-107); CREATININE 1.01 MG/DL (0.60-1.10); GLUCOSE 136 MG/DL (70-104); MAGNESIUM 1.8 MG/DL (1.5-2.4); PHOSPHORUS 2.3 MG/DL (2.3-4.5); POTASSIUM 3.8 MMOL/L (3.5-5.1); SODIUM 136 MMOL/L (135-145); TOTAL CARBON DIOXIDE 27.6 MMOL/L (24-32); eGFR 76 ML/MIN
[2019-01-19] MEDS: insulin glargine (Lantus) pen - multi-dose SQ SCH (20:32)
[2019-01-20] VITALS (24 sets, daily range): BP systolic 90–111; BP diastolic 47–64
[2019-01-20] MEDS: piperacillin/tazobactam inj. 3.375 GM in NS 50ml IV SCH ×2 (00:10→08:47)
[2019-01-20] MEDS: gabapentin 300mg capsule PO SCH ×3 (00:10→15:34)
[2019-01-20 01:50] LABS: ALBUMIN 2.2 G/DL (3.4-5.0); ANION GAP 5 (8-16); BLOOD UREA NITROGEN 16 MG/DL (7-18); CHLORIDE 103 MMOL/L (99-107); GLUCOSE 136 MG/DL (70-104); MAGNESIUM 1.8 MG/DL (1.5-2.4); PHOSPHORUS 2.5 MG/DL (2.3-4.5); SODIUM 137 MMOL/L (135-145); TOTAL CARBON DIOXIDE 28.7 MMOL/L (24-32); eGFR 77 ML/MIN
[2019-01-20] MEDS: insulin regular, human vial - multi-dose SQ SCH ×4 (02:15→20:32)
[2019-01-20 02:28] LABS: BASOPHILS # (AUTO) 0.1 X10'3 (0-0.2); BASOPHILS % (AUTO) 0.7 % (0-1); EOSINOPHILS # (AUTO) 0.1 X10'3 (0-0.9); EOSINOPHILS % (AUTO) 0.4 % (0-6); HEMOGLOBIN 8.3 g/dl (14.0-17.9); LYMPHOCYTES # (AUTO) 0.8 X10'3 (1.1-4.8); MEAN CORPUSCULAR HEMOGLOBIN 26.3 PG (27.0-31.0); MEAN CORPUSCULAR VOLUME 79.8 FL (78-98); MEAN PLATELET VOLUME 7.5 FL (7.4-10.4); MONOCYTES # (AUTO) 0.8 X10'3 (0-0.9); MONOCYTES % (AUTO) 5.9 % (2-12); NEUTROPHILS # (AUTO) 11.7 X10'3 (1.8-7.7); PLATELET COUNT 100 X10'3 (140-440); RED BLOOD COUNT 3.14 X10'6 (4.70-6.10); WHITE BLOOD COUNT 13.5 X10'3 (4.5-11.0)
[2019-01-20 04:15] LABS: ABG HCO3 27.4 mmol/L (22.0-26.0); ABG PCO2 (T) 40.9 mmHg (35.0-48.0); ABG PH (T) 7.443 (7.350-7.450); ABG PO2 (T) 79.5 mmHg (83-108); ALLEN'S TEST Positive; FCOHb 0.3 % (0.5-1.5); FMetHb 0.3 % (0.3-1.12); FO2Hb 95.4 % (94-100); MINUTE VOLUME 10 L/min; PATIENT TEMPERATURE 36.7; PEEP 5 cm H2O; RESPIRATORY RATE 16 b/min; RESPIRATORY RATE (OBSERVED) 17 b/min; TIDAL VOLUME 500 mL; TOTAL HEMOGLOBIN 9.4 G/dl (14.0-18.0)
[2019-01-20] MEDS: BICARB DIALYSIS W/CALCIUM SOL 5,000 ML HE SCH ×10 (04:37→21:34)
[2019-01-20] MEDS: amiodarone/D5 360MG/200ML BAG 200 ML IV SCH ×4 (05:10→15:34)
[2019-01-20] MEDS: FENTANYL-0.9 % NACL/PF 100 ML IV PRN (05:11)
[2019-01-20] MEDS: propofol 1000mg/100ml bottle 100 ML IV PRN ×2 (05:50→13:57)
--- NOTE | 2019-01-20 06:40 | NUR ---
Patient in room ICU 2042. I have received report from Chaz and had the opportunity to ask questions and assume patient care.
[2019-01-20 07:27] LABS: BASOPHILS # (AUTO) 0.1 X10'3 (0-0.2); BASOPHILS % (AUTO) 0.7 % (0-1); EOSINOPHILS % (AUTO) 0.3 % (0-6); HEMATOCRIT 25.8 % (42.0-52.0); HEMOGLOBIN 8.4 g/dl (14.0-17.9); LYMPHOCYTES # (AUTO) 0.7 X10'3 (1.1-4.8); LYMPHOCYTES % (AUTO) 4.9 % (21-51); MEAN CORPUSCULAR HEMOGLOBIN 26.2 PG (27.0-31.0); MEAN CORPUSCULAR HGB CONC 32.6 g/dL (33.0-36.5); MEAN CORPUSCULAR VOLUME 80.2 FL (78-98); MEAN PLATELET VOLUME 6.9 FL (7.4-10.4); MONOCYTES # (AUTO) 0.8 X10'3 (0-0.9); MONOCYTES % (AUTO) 5.8 % (2-12); NEUTROPHILS # (AUTO) 11.8 X10'3 (1.8-7.7); NEUTROPHILS % (AUTO) 88.3 % (42-75); PLATELET COUNT 97 X10'3 (140-440); RED BLOOD COUNT 3.22 X10'6 (4.70-6.10); RED CELL DISTRIBUTION WIDTH 19.3 % (11.5-14.5); WHITE BLOOD COUNT 13.4 X10'3 (4.5-11.0)
[2019-01-20 07:39] LABS: ALBUMIN 2.2 G/DL (3.4-5.0); ANION GAP 8 (8-16); BLOOD UREA NITROGEN 15 MG/DL (7-18); BUN/CREATININE RATIO 16.1 (5.4-32.0); CHLORIDE 103 MMOL/L (99-107); CREATININE 0.93 MG/DL (0.60-1.10); GLUCOSE 155 MG/DL (70-104); MAGNESIUM 1.7 MG/DL (1.5-2.4); PHOSPHORUS 2.1 MG/DL (2.3-4.5); SODIUM 138 MMOL/L (135-145); TOTAL CARBON DIOXIDE 27.5 MMOL/L (24-32); eGFR 84 ML/MIN
[2019-01-20 07:55] LABS: ANISOCYTOSIS 2+; MICROCYTOSIS 1+; PLATELET ESTIMATE DECREASED; POLYCHROMASIA FEW; TARGET CELLS FEW
[2019-01-20] MEDS: MOVANTIK 25 MG PO SCH (08:00)
[2019-01-20] MEDS: docusate sodium 100mg/10ml UD cup PO SCH ×2 (08:00→20:23)
[2019-01-20] MEDS: heparin, porcine 5000 units/ml vial SQ SCH ×2 (08:45→20:24)
[2019-01-20] MEDS: ferrous sulfate 325mg tablet PO SCH ×3 (08:45→16:59)
[2019-01-20] MEDS: rifaximin 550mg tablet PO SCH ×2 (08:45→20:23)
[2019-01-20 08:46] LABS: ALANINE AMINOTRANSFERASE 16 U/L (12-78); ALBUMIN 2.2 G/DL (3.4-5.0); ALBUMIN/GLOBULIN RATIO 0.7 (1.1-1.5); ALKALINE PHOSPHATASE 192 IU/L (46-116); ANION GAP 8 (8-16); ASPARTATE AMINO TRANSFERASE 21 U/L (10-37); BILIRUBIN,TOTAL 0.9 MG/DL (0.1-1.0); BLOOD UREA NITROGEN 14 MG/DL (7-18); BUN/CREATININE RATIO 14.4 (5.4-32.0); CALCIUM 8.5 MG/DL (8.5-10.1); CHLORIDE 104 MMOL/L (99-107); CREATININE 0.97 MG/DL (0.60-1.10); GLUCOSE 155 MG/DL (70-104); SODIUM 138 MMOL/L (135-145); TOTAL PROTEIN 5.4 G/DL (6.4-8.2); eGFR 80 ML/MIN
[2019-01-20] MEDS: lactobacillus rhamnosus 10,000 MMU CELLS/CAPSULE PO SCH ×2 (08:46→20:23)
[2019-01-20] MEDS: pantoprazole 40 MG vial IV SCH (08:49)
[2019-01-20] MEDS ORDERED: etomidate 2mg/ml inj. ONE (09:00)
[2019-01-20] MEDS ORDERED: rocuronium 10mg/ml inj IV ONE (09:00)
[2019-01-20] MEDS: magnesium 4gm in 100ml NS 100 ML IV PRN (09:23)
--- NOTE | 2019-01-20 09:34 | NUR ---
0830- CVVH reading air in line, no air present, unable to return blood to patient. Flushed femoral lines with NS. contacted Yessi (preparation center coordinator dialysis). She will be in to change lines. Lab called with a positive culture from R abdominal wound +VRE. 0900 Dr Akins at bedside, notified of results, he is reviewing anbx tx now. 0915 Mg 1.7 replacing with 4 gm. Phos level 2.1 to be replaced. requested form pharmacy
[2019-01-20] MEDS ORDERED: morphine/NS 100mg/100ml bag 100 ML IV SCH (10:10)
[2019-01-20] MEDS: sodium phosphate inj. 30 MMOL in normal saline 250ml IV soln 250 ML IV PRN (10:39)
[2019-01-20] MEDS: linezolid 600mg/300ml PREMIX 300 ML IV SCH ×2 (10:39→20:23)
[2019-01-20] MEDS ORDERED: VANCOMYCIN LEVEL IV ONE (11:30)
--- NOTE | 2019-01-20 11:43 | NUR ---
1004- CVVH resumed. Currently patient fluid positive this shift for 98 cc's. Increased levophed to 7 for BP 90/54. 1100 Dr Rahman here. Continue to average 50cc off per hour with the CVVH. No new orders at this time. Zyvox initiated and changed fentanyl to morphine gtt.
--- NOTE | 2019-01-20 12:32 | NUR ---
1215- desat to 84%, 100%FIox while awaiting RT. decreased propofol to 10 and MS to 1.5. new bag of H2O added to vent. Repositioning to right side.
[2019-01-20 12:56] LABS: ABG HCO3 24.9 mmol/L (22.0-26.0); ABG OXYGEN SATURATION 92.6 % (95-98); ABG PCO2 (T) 36.8 mmHg (35.0-48.0); ABG PH (T) 7.449 (7.350-7.450); ABG PO2 (T) 63.3 mmHg (83-108); ALLEN'S TEST Positive; FCOHb 0.3 % (0.5-1.5); FLOW 100 L/min; FO2Hb 92.3 % (94-100); TIDAL VOLUME 500 mL; TOTAL HEMOGLOBIN 9.8 G/dl (14.0-18.0)
--- NOTE | 2019-01-20 13:16 | NUR ---
1215- RT here with tx, lavaged, and increased FIO2 periodically to get sat up. ABG drawn and chest xray completed. 1320- Sats currently 92% on 70%FIO2. Updated Dr. Rodney on respiratory status. Pt 302 cc fluid positive this shift after CVVH was down for over 1 hour. Will continue to monitor and remove fluids as BP tolerates.
--- NOTE | 2019-01-20 13:37 | NUR ---
reassessment: Pt tolerating TF at 85ml/hr almost to goal 90. On CVVH. LBM 5/ w/ colharsh held today. Pt admit w/ LEAH and JOSUE d/w RN for lipid panel per MD approval. Jose 12 w/ skin intact. BMI down to 38 from 41 but no significant fluid balance changes noted w/ severe +4 pitting edemas remaining; likely differing bed scale wts. Will continue to monitor. Recommend: 1. continues tube feeding per OG tube using Vital High Protein at 90 ml/hr to provide total volume of 2160 ml, 2160 cals, 189 gm protein, and 1806 ml water. 2. Prealbumin Q monday and 3. daily weights 4. additional water flush per jewel bearing polisher 5. when extubated advance diet as medically indicated to heart healthy Addendum: 01/20/19 at [address] Amended: Links added.
[2019-01-20] MEDS: NORepinephrine 8mg/ 250ml NS 250 ML IV SCH (13:58)
[2019-01-20 14:11] LABS: BASOPHILS # (AUTO) 0.1 X10'3 (0-0.2); BASOPHILS % (AUTO) 0.6 % (0-1); EOSINOPHILS % (AUTO) 0.3 % (0-6); HEMATOCRIT 24.7 % (42.0-52.0); HEMOGLOBIN 8.1 g/dl (14.0-17.9); LYMPHOCYTES # (AUTO) 0.6 X10'3 (1.1-4.8); LYMPHOCYTES % (AUTO) 4.4 % (21-51); MEAN CORPUSCULAR HEMOGLOBIN 26.5 PG (27.0-31.0); MEAN CORPUSCULAR HGB CONC 32.9 g/dL (33.0-36.5); MEAN CORPUSCULAR VOLUME 80.4 FL (78-98); MONOCYTES # (AUTO) 0.6 X10'3 (0-0.9); NEUTROPHILS # (AUTO) 11.5 X10'3 (1.8-7.7); NEUTROPHILS % (AUTO) 89.7 % (42-75); PLATELET COUNT 77 X10'3 (140-440); RED BLOOD COUNT 3.07 X10'6 (4.70-6.10); RED CELL DISTRIBUTION WIDTH 19.5 % (11.5-14.5); WHITE BLOOD COUNT 12.8 X10'3 (4.5-11.0)
[2019-01-20 14:15] LABS: ALBUMIN 2.1 G/DL (3.4-5.0); ANION GAP 6 (8-16); BLOOD UREA NITROGEN 14 MG/DL (7-18); BUN/CREATININE RATIO 16.3 (5.4-32.0); CHLORIDE 104 MMOL/L (99-107); CREATININE 0.86 MG/DL (0.60-1.10); GLUCOSE 166 MG/DL (70-104); MAGNESIUM 2.3 MG/DL (1.5-2.4); PHOSPHORUS 1.9 MG/DL (2.3-4.5); POTASSIUM 3.8 MMOL/L (3.5-5.1); SODIUM 138 MMOL/L (135-145); TOTAL CARBON DIOXIDE 28.3 MMOL/L (24-32); eGFR > 90 ML/MIN
[2019-01-20 19:30] LABS: BASOPHILS # (AUTO) 0.1 X10'3 (0-0.2); BASOPHILS % (AUTO) 0.6 % (0-1); EOSINOPHILS % (AUTO) 0.1 % (0-6); HEMATOCRIT 23.5 % (42.0-52.0); HEMOGLOBIN 7.7 g/dl (14.0-17.9); LYMPHOCYTES # (AUTO) 0.8 X10'3 (1.1-4.8); LYMPHOCYTES % (AUTO) 5.4 % (21-51); MEAN CORPUSCULAR HEMOGLOBIN 26.5 PG (27.0-31.0); MEAN CORPUSCULAR HGB CONC 32.8 g/dL (33.0-36.5); MEAN CORPUSCULAR VOLUME 80.7 FL (78-98); MEAN PLATELET VOLUME 6.8 FL (7.4-10.4); MONOCYTES # (AUTO) 1.1 X10'3 (0-0.9); MONOCYTES % (AUTO) 7.5 % (2-12); NEUTROPHILS # (AUTO) 12.1 X10'3 (1.8-7.7); NEUTROPHILS % (AUTO) 86.4 % (42-75); PLATELET COUNT 68 X10'3 (140-440); RED BLOOD COUNT 2.91 X10'6 (4.70-6.10); RED CELL DISTRIBUTION WIDTH 18.7 % (11.5-14.5)
[2019-01-20 19:40] LABS: ANION GAP 6 (8-16); BLOOD UREA NITROGEN 13 MG/DL (7-18); BUN/CREATININE RATIO 15.9 (5.4-32.0); CHLORIDE 105 MMOL/L (99-107); CREATININE 0.82 MG/DL (0.60-1.10); GLUCOSE 133 MG/DL (70-104); MAGNESIUM 2.2 MG/DL (1.5-2.4); POTASSIUM 3.8 MMOL/L (3.5-5.1); SODIUM 139 MMOL/L (135-145); TOTAL CARBON DIOXIDE 28.5 MMOL/L (24-32); eGFR > 90 ML/MIN
[2019-01-20] MEDS: insulin glargine (Lantus) pen - multi-dose SQ SCH (20:32)
[2019-01-21] VITALS (26 sets, daily range): BP systolic 90–114; BP diastolic 50–64
[2019-01-21] MEDS ORDERED: VANCOMYCIN LEVEL IV ONE ×2 (00:30→01:30)
[2019-01-21] MEDS: propofol 1000mg/100ml bottle 100 ML IV PRN ×4 (01:26→23:32)
[2019-01-21] MEDS: gabapentin 300mg capsule PO SCH ×4 (01:31→23:32)
[2019-01-21 01:53] LABS: BASOPHILS # (AUTO) 0.1 X10'3 (0-0.2); BASOPHILS % (AUTO) 0.8 % (0-1); EOSINOPHILS % (AUTO) 0 % (0-6); HEMATOCRIT 23.9 % (42.0-52.0); HEMOGLOBIN 7.8 g/dl (14.0-17.9); LYMPHOCYTES # (AUTO) 0.7 X10'3 (1.1-4.8); LYMPHOCYTES % (AUTO) 5.4 % (21-51); MEAN CORPUSCULAR HEMOGLOBIN 26.6 PG (27.0-31.0); MEAN CORPUSCULAR HGB CONC 32.7 g/dL (33.0-36.5); MEAN CORPUSCULAR VOLUME 81.3 FL (78-98); MEAN PLATELET VOLUME 7.4 FL (7.4-10.4); MONOCYTES % (AUTO) 7.3 % (2-12); NEUTROPHILS % (AUTO) 86.5 % (42-75); PLATELET COUNT 68 X10'3 (140-440); RED BLOOD COUNT 2.94 X10'6 (4.70-6.10); RED CELL DISTRIBUTION WIDTH 19.1 % (11.5-14.5); WHITE BLOOD COUNT 13.8 X10'3 (4.5-11.0)
[2019-01-21] MEDS: insulin regular, human vial - multi-dose SQ SCH ×4 (01:58→20:27)
[2019-01-21 02:01] LABS: ANION GAP 6 (8-16); BLOOD UREA NITROGEN 12 MG/DL (7-18); CHLORIDE 105 MMOL/L (99-107); CHOL/HDL RATIO 6.6 (0.00-4.99); CHOLESTEROL 73 MG/DL (0-200); GLUCOSE 148 MG/DL (70-104); HDL CHOLESTEROL 11 MG/DL (35-60); LDL CHOLESTEROL 53 MG/DL (50-100); MAGNESIUM 1.8 MG/DL (1.5-2.4); PHOSPHORUS 2.5 MG/DL (2.3-4.5); POTASSIUM 3.7 MMOL/L (3.5-5.1); PREALBUMIN 8.8 MG/DL (19-36); SODIUM 139 MMOL/L (135-145); TOTAL CARBON DIOXIDE 28.2 MMOL/L (24-32); TRIGLYCERIDES 95 MG/DL (20-135); eGFR > 90 ML/MIN
[2019-01-21] MEDS: BICARB DIALYSIS W/CALCIUM SOL 5,000 ML HE SCH ×12 (03:38→23:09)
[2019-01-21] MEDS: potassium Cl 20mEq/100mL bag 100 ML IV PRN ×3 (03:44→23:18)
[2019-01-21 04:00] LABS: ABG BASE EXCESS 1.5 mmol/L (-2.0-3.0); ABG HCO3 25.4 mmol/L (22.0-26.0); ABG PCO2 (T) 36.7 mmHg (35.0-48.0); ABG PH (T) 7.458 (7.350-7.450); ABG PO2 (T) 81.1 mmHg (83-108); ALLEN'S TEST Positive; FCOHb 0.3 % (0.5-1.5); FLOW 1 L/min; FMetHb 0.3 % (0.3-1.12); FO2Hb 95.4 % (94-100); PATIENT TEMPERATURE 36.7; PEEP 5 cm H2O; RESPIRATORY RATE 16 b/min; TIDAL VOLUME 500 mL; TOTAL HEMOGLOBIN 8.9 G/dl (14.0-18.0)
[2019-01-21] MEDS: amiodarone/D5 360MG/200ML BAG 200 ML IV SCH ×4 (04:01→15:52)
--- NOTE | 2019-01-21 06:25 | NUR ---
Patient in room ICU 2042. I have received report from Chaz and had the opportunity to ask questions and assume patient care.
[2019-01-21] MEDS: pantoprazole 40 MG vial IV SCH (07:40)
[2019-01-21] MEDS: linezolid 600mg/300ml PREMIX 300 ML IV SCH ×2 (07:40→20:11)
[2019-01-21] MEDS: rifaximin 550mg tablet PO SCH ×2 (07:40→20:11)
[2019-01-21] MEDS: ferrous sulfate 325mg tablet PO SCH ×3 (07:41→16:56)
[2019-01-21] MEDS: lactobacillus rhamnosus 10,000 MMU CELLS/CAPSULE PO SCH ×2 (07:41→20:11)
[2019-01-21] MEDS: docusate sodium 100mg/10ml UD cup PO SCH ×2 (07:43→20:11)
[2019-01-21] MEDS: MOVANTIK 25 MG PO SCH (07:44)
[2019-01-21] MEDS: heparin, porcine 5000 units/ml vial SQ SCH (08:00)
[2019-01-21] MEDS: NORepinephrine 8mg/ 250ml NS 250 ML IV SCH (08:09)
[2019-01-21 08:37] LABS: BASOPHILS # (AUTO) 0.1 X10'3 (0-0.2); BASOPHILS % (AUTO) 0.6 % (0-1); EOSINOPHILS % (AUTO) 0.1 % (0-6); HEMATOCRIT 23.9 % (42.0-52.0); HEMOGLOBIN 7.8 g/dl (14.0-17.9); LYMPHOCYTES # (AUTO) 0.8 X10'3 (1.1-4.8); LYMPHOCYTES % (AUTO) 5.4 % (21-51); MEAN CORPUSCULAR HEMOGLOBIN 26.7 PG (27.0-31.0); MEAN CORPUSCULAR HGB CONC 32.8 g/dL (33.0-36.5); MEAN CORPUSCULAR VOLUME 81.2 FL (78-98); MEAN PLATELET VOLUME 7.5 FL (7.4-10.4); MONOCYTES # (AUTO) 1.3 X10'3 (0-0.9); MONOCYTES % (AUTO) 9.1 % (2-12); NEUTROPHILS # (AUTO) 12.2 X10'3 (1.8-7.7); NEUTROPHILS % (AUTO) 84.8 % (42-75); PLATELET COUNT 57 X10'3 (140-440); RED BLOOD COUNT 2.94 X10'6 (4.70-6.10); RED CELL DISTRIBUTION WIDTH 18.6 % (11.5-14.5); WHITE BLOOD COUNT 14.4 X10'3 (4.5-11.0)
[2019-01-21 08:47] LABS: ANION GAP 5 (8-16); BLOOD UREA NITROGEN 12 MG/DL (7-18); CHLORIDE 106 MMOL/L (99-107); GLUCOSE 136 MG/DL (70-104); MAGNESIUM 1.8 MG/DL (1.5-2.4); PHOSPHORUS 2.3 MG/DL (2.3-4.5); POTASSIUM 4.1 MMOL/L (3.5-5.1); SODIUM 140 MMOL/L (135-145); TOTAL CARBON DIOXIDE 28.6 MMOL/L (24-32); eGFR > 90 ML/MIN
--- NOTE | 2019-01-21 09:21 | NUR ---
07 CVVH filter occluded. returned blood to patient. Call placed to Yessi in dialysis, she will be here soon. Manjinder site oozing blood, changed dressing, held heparin until MD notified of platelet level decreasing. 904- CVVH up and running. Platelets 57, PO4 2.3, replacement ordered. fluid positive at this time.
[2019-01-21 10:08] LABS: ANISOCYTOSIS 2+; PLATELET ESTIMATE DECREASED
[2019-01-21] MEDS: sodium phosphate inj. 30 MMOL in normal saline 250ml IV soln 250 ML IV PRN (10:08)
[2019-01-21 10:09] LABS: HYPOCHROMASIA 1+; MICROCYTOSIS 1+; POLYCHROMASIA 1+
[2019-01-21] MEDS ORDERED: CADD PCA waste documentation MC SCH (11:20)
[2019-01-21] MEDS: HYDROmorphone/NS 1 mg/ml CADD 50 ML IV SCH ×7 (11:53→23:00)
--- NOTE | 2019-01-21 13:24 | NUR ---
0930- sats decreasing, increased FIO2 50%- corrected itself by 1200, weaning FIO2. 1000- Rounds, check ammonia, arrange for brother Negrito to speak with MD. (Nursing arranged for brother Negrito to be here on 01/22/19 at rounds) 1300- Manjinder continues to ooze. Saturated 1 wash cloth with blood. Labs sent, will evaluate platelets with results.
[2019-01-21 13:47] LABS: BASOPHILS # (AUTO) 0.1 X10'3 (0-0.2); BASOPHILS % (AUTO) 0.4 % (0-1); EOSINOPHILS % (AUTO) 0.1 % (0-6); HEMATOCRIT 23.6 % (42.0-52.0); HEMOGLOBIN 7.7 g/dl (14.0-17.9); LYMPHOCYTES # (AUTO) 0.8 X10'3 (1.1-4.8); LYMPHOCYTES % (AUTO) 5.2 % (21-51); MEAN CORPUSCULAR HEMOGLOBIN 26.4 PG (27.0-31.0); MEAN CORPUSCULAR HGB CONC 32.5 g/dL (33.0-36.5); MEAN CORPUSCULAR VOLUME 81.2 FL (78-98); MEAN PLATELET VOLUME 7.4 FL (7.4-10.4); MONOCYTES # (AUTO) 1.4 X10'3 (0-0.9); MONOCYTES % (AUTO) 9.3 % (2-12); NEUTROPHILS # (AUTO) 12.9 X10'3 (1.8-7.7); PLATELET COUNT 57 X10'3 (140-440); RED CELL DISTRIBUTION WIDTH 19.1 % (11.5-14.5); WHITE BLOOD COUNT 15.1 X10'3 (4.5-11.0)
[2019-01-21 13:58] LABS: ANION GAP 5 (8-16); BLOOD UREA NITROGEN 11 MG/DL (7-18); BUN/CREATININE RATIO 16.7 (5.4-32.0); CHLORIDE 105 MMOL/L (99-107); CREATININE 0.66 MG/DL (0.60-1.10); GLUCOSE 148 MG/DL (70-104); MAGNESIUM 1.9 MG/DL (1.5-2.4); PHOSPHORUS 3.2 MG/DL (2.3-4.5); SODIUM 139 MMOL/L (135-145); TOTAL CARBON DIOXIDE 28.8 MMOL/L (24-32); eGFR > 90 ML/MIN
--- NOTE | 2019-01-21 16:24 | NUR ---
1415 Platelets remain at 57. Spoke with Dr Dove about oozing aniyah site, have changed dressing x 2, plus soaked a wash cloth and several 4x4's, No to platelet transfusion. continue to apply pressure dressings as able. Stool seeping around rectal tube, copious amount, urine leaking from FC insertions site. Irrigated F/c with 20cc NS, 350 urine out. patient cleaned and repositioned. Drainage in f/c now thick with sediment reirrigated with 20cc NS and 60 cc clearer urine out.
--- NOTE | 2019-01-21 17:44 | NUR ---
1730- changed dressing to aniyah cath site, 4x4's folded and covered with a pressure dressing. Showed drainage to charge. Saved the soaked dressing and chux for MD to see if bleeding continues. Will report off to oncoming shift.
[2019-01-21 20:05] LABS: BASOPHILS # (AUTO) 0.1 X10'3 (0-0.2); BASOPHILS % (AUTO) 0.6 % (0-1); EOSINOPHILS % (AUTO) 0.2 % (0-6); HEMATOCRIT 22.4 % (42.0-52.0); HEMOGLOBIN 7.4 g/dl (14.0-17.9); LYMPHOCYTES # (AUTO) 0.8 X10'3 (1.1-4.8); LYMPHOCYTES % (AUTO) 5.4 % (21-51); MEAN CORPUSCULAR HEMOGLOBIN 26.9 PG (27.0-31.0); MEAN CORPUSCULAR HGB CONC 33.1 g/dL (33.0-36.5); MEAN CORPUSCULAR VOLUME 81.2 FL (78-98); MEAN PLATELET VOLUME 7.6 FL (7.4-10.4); MONOCYTES # (AUTO) 1.3 X10'3 (0-0.9); MONOCYTES % (AUTO) 9.2 % (2-12); NEUTROPHILS # (AUTO) 11.8 X10'3 (1.8-7.7); NEUTROPHILS % (AUTO) 84.6 % (42-75); PLATELET COUNT 57 X10'3 (140-440); RED BLOOD COUNT 2.76 X10'6 (4.70-6.10); RED CELL DISTRIBUTION WIDTH 19.1 % (11.5-14.5)
[2019-01-21 20:18] LABS: ALBUMIN 1.9 G/DL (3.4-5.0); ANION GAP 2 (8-16); BLOOD UREA NITROGEN 10 MG/DL (7-18); BUN/CREATININE RATIO 14.9 (5.4-32.0); CHLORIDE 107 MMOL/L (99-107); CREATININE 0.67 MG/DL (0.60-1.10); GLUCOSE 150 MG/DL (70-104); MAGNESIUM 1.6 MG/DL (1.5-2.4); POTASSIUM 3.9 MMOL/L (3.5-5.1); SODIUM 138 MMOL/L (135-145); eGFR > 90 ML/MIN
[2019-01-21] MEDS: insulin glargine (Lantus) pen - multi-dose SQ SCH (20:28)
--- NOTE | 2019-01-21 23:00 | NUR ---
Pt's platelet count was low, he was given a pack of platelets as ordered by Dr. Dove. Will continue to monitor platelet count.
[2019-01-21] MEDS: magnesium 4gm in 100ml NS 100 ML IV PRN (23:18)
[2019-01-21] MEDS: NORepinephrine 8mg/ 250ml NS 250 ML IV PRN (23:33)
[2019-01-22] VITALS (30 sets, daily range): BP systolic 85–116; BP diastolic 43–68
[2019-01-22 00:06] LABS: ANISOCYTOSIS 2+; PLATELET ESTIMATE DECREASED
[2019-01-22 00:07] LABS: POLYCHROMASIA FEW
[2019-01-22] MEDS: HYDROmorphone/NS 1 mg/ml CADD 50 ML IV SCH ×12 (01:00→23:00)
[2019-01-22] MEDS: potassium Cl 20mEq/100mL bag 100 ML IV PRN (01:06)
[2019-01-22] MEDS ORDERED: gelatin sponge, absorbable (Gelfoam 100) sponge TP ONE (01:40)
--- NOTE | 2019-01-22 03:00 | NUR ---
The pt is having a constant oozing of blood from the insertion site of the aniyah catheter in his groin. His H&H has been dropping with each blood draw. Currently waiting on results from the lab with his current H&H.
[2019-01-22 03:44] LABS: BASOPHILS # (AUTO) 0.1 X10'3 (0-0.2); BASOPHILS % (AUTO) 0.5 % (0-1); EOSINOPHILS % (AUTO) 0 % (0-6); LYMPHOCYTES # (AUTO) 0.7 X10'3 (1.1-4.8); LYMPHOCYTES % (AUTO) 5.5 % (21-51); MEAN CORPUSCULAR HEMOGLOBIN 26.8 PG (27.0-31.0); MEAN CORPUSCULAR VOLUME 81.1 FL (78-98); MEAN PLATELET VOLUME 7.6 FL (7.4-10.4); MONOCYTES # (AUTO) 1.2 X10'3 (0-0.9); MONOCYTES % (AUTO) 10.5 % (2-12); NEUTROPHILS % (AUTO) 83.5 % (42-75); PLATELET COUNT 84 X10'3 (140-440); RED BLOOD COUNT 2.54 X10'6 (4.70-6.10); RED CELL DISTRIBUTION WIDTH 18.9 % (11.5-14.5); WHITE BLOOD COUNT 11.9 X10'3 (4.5-11.0)
[2019-01-22 03:54] LABS: ALANINE AMINOTRANSFERASE 16 U/L (12-78); ALBUMIN 2.1 G/DL (3.4-5.0); ALBUMIN/GLOBULIN RATIO 0.6 (1.1-1.5); ALKALINE PHOSPHATASE 154 IU/L (46-116); ANION GAP 2 (8-16); ASPARTATE AMINO TRANSFERASE 20 U/L (10-37); BILIRUBIN,TOTAL 0.8 MG/DL (0.1-1.0); BLOOD UREA NITROGEN 11 MG/DL (7-18); BUN/CREATININE RATIO 16.4 (5.4-32.0); CALCIUM 8.1 MG/DL (8.5-10.1); CHLORIDE 106 MMOL/L (99-107); CREATININE 0.67 MG/DL (0.60-1.10); GLUCOSE 147 MG/DL (70-104); MAGNESIUM 2.3 MG/DL (1.5-2.4); PHOSPHORUS 2.6 MG/DL (2.3-4.5); POTASSIUM 4.3 MMOL/L (3.5-5.1); SODIUM 138 MMOL/L (135-145); TOTAL CARBON DIOXIDE 29.7 MMOL/L (24-32); TOTAL PROTEIN 5.5 G/DL (6.4-8.2); eGFR > 90 ML/MIN
[2019-01-22 03:57] LABS: HEMATOCRIT 20.6 % (42.0-52.0); HEMOGLOBIN 6.8 g/dl (14.0-17.9)
--- NOTE | 2019-01-22 04:00 | NUR ---
The CVVH machine went down, the on-call Dialysis nurse has been called. Yessi will be coming in to restart the machine.
[2019-01-22] MEDS: amiodarone/D5 360MG/200ML BAG 200 ML IV SCH ×3 (04:03→16:34)
[2019-01-22 04:31] LABS: ABG BASE EXCESS -0.2 mmol/L (-2.0-3.0); ABG HCO3 23.8 mmol/L (22.0-26.0); ABG OXYGEN SATURATION 90.8 % (95-98); ABG PCO2 (T) 34.9 mmHg (35.0-48.0); ABG PH (T) 7.449 (7.350-7.450); ALLEN'S TEST Positive; FCOHb 0.3 % (0.5-1.5); FMetHb 0.1 % (0.3-1.12); FO2Hb 90.4 % (94-100); PATIENT TEMPERATURE 36.5; PEEP 5 cm H2O; RESPIRATORY RATE 16 b/min; TIDAL VOLUME 500 mL; TOTAL HEMOGLOBIN 7.8 G/dl (14.0-18.0)
[2019-01-22 04:45] LABS: ANISOCYTOSIS 2+; PLATELET ESTIMATE DECREASED; POLYCHROMASIA FEW
[2019-01-22 05:11] LABS: INR 1.1 INR; PARTIAL THROMBOPLASTIN TIME 38 SECONDS (22-32)
[2019-01-22] MEDS: BICARB DIALYSIS W/CALCIUM SOL 5,000 ML HE SCH ×7 (05:37→19:34)
[2019-01-22] MEDS: lactobacillus rhamnosus 10,000 MMU CELLS/CAPSULE PO SCH ×2 (07:25→20:33)
[2019-01-22] MEDS: rifaximin 550mg tablet PO SCH ×2 (07:25→20:33)
[2019-01-22] MEDS: ferrous sulfate 325mg tablet PO SCH ×3 (07:26→16:34)
[2019-01-22] MEDS: pantoprazole 40 MG vial IV SCH (07:26)
[2019-01-22] MEDS: docusate sodium 100mg/10ml UD cup PO SCH ×2 (07:26→20:33)
[2019-01-22] MEDS: gabapentin 300mg capsule PO SCH ×2 (07:26→16:34)
[2019-01-22] MEDS: linezolid 600mg/300ml PREMIX 300 ML IV SCH ×2 (07:46→20:33)
[2019-01-22] MEDS: MOVANTIK 25 MG PO SCH (08:00)
[2019-01-22 09:02] LABS: BASOPHILS % (AUTO) 0.4 % (0-1); EOSINOPHILS % (AUTO) 0.1 % (0-6); HEMATOCRIT 22.1 % (42.0-52.0); HEMOGLOBIN 7.3 g/dl (14.0-17.9); LYMPHOCYTES # (AUTO) 0.6 X10'3 (1.1-4.8); LYMPHOCYTES % (AUTO) 5.7 % (21-51); MEAN CORPUSCULAR HEMOGLOBIN 27.4 PG (27.0-31.0); MEAN CORPUSCULAR HGB CONC 33.2 g/dL (33.0-36.5); MEAN CORPUSCULAR VOLUME 82.7 FL (78-98); MEAN PLATELET VOLUME 7.5 FL (7.4-10.4); MONOCYTES % (AUTO) 9.3 % (2-12); NEUTROPHILS # (AUTO) 9.3 X10'3 (1.8-7.7); NEUTROPHILS % (AUTO) 84.5 % (42-75); PLATELET COUNT 73 X10'3 (140-440); RED BLOOD COUNT 2.68 X10'6 (4.70-6.10); RED CELL DISTRIBUTION WIDTH 18.6 % (11.5-14.5)
[2019-01-22 09:18] LABS: ANION GAP 7 (8-16); BLOOD UREA NITROGEN 12 MG/DL (7-18); BUN/CREATININE RATIO 17.1 (5.4-32.0); CHLORIDE 104 MMOL/L (99-107); GLUCOSE 196 MG/DL (70-104); PHOSPHORUS 2.7 MG/DL (2.3-4.5); POTASSIUM 4.1 MMOL/L (3.5-5.1); SODIUM 139 MMOL/L (135-145); TOTAL CARBON DIOXIDE 27.7 MMOL/L (24-32); eGFR > 90 ML/MIN
[2019-01-22 10:24] LABS: PLATELET ESTIMATE DECREASED
[2019-01-22 10:25] LABS: ANISOCYTOSIS 2+; HYPOCHROMASIA 1+; POIKILOCYTOSIS 2+; POLYCHROMASIA 1+
[2019-01-22] MEDS: insulin regular, human vial - multi-dose SQ SCH ×3 (10:36→20:36)
[2019-01-22 15:05] LABS: BASOPHILS % (AUTO) 0.4 % (0-1); EOSINOPHILS % (AUTO) 0.1 % (0-6); HEMATOCRIT 22.1 % (42.0-52.0); HEMOGLOBIN 7.6 g/dl (14.0-17.9); LYMPHOCYTES # (AUTO) 0.6 X10'3 (1.1-4.8); LYMPHOCYTES % (AUTO) 4.6 % (21-51); MEAN CORPUSCULAR HEMOGLOBIN 28.2 PG (27.0-31.0); MEAN CORPUSCULAR HGB CONC 34.2 g/dL (33.0-36.5); MEAN CORPUSCULAR VOLUME 82.6 FL (78-98); MEAN PLATELET VOLUME 7.8 FL (7.4-10.4); MONOCYTES # (AUTO) 1.3 X10'3 (0-0.9); MONOCYTES % (AUTO) 11.1 % (2-12); NEUTROPHILS % (AUTO) 83.8 % (42-75); PLATELET COUNT 71 X10'3 (140-440); RED BLOOD COUNT 2.68 X10'6 (4.70-6.10); RED CELL DISTRIBUTION WIDTH 18.4 % (11.5-14.5)
[2019-01-22 15:10] LABS: ALBUMIN 2.1 G/DL (3.4-5.0); ANION GAP 6 (8-16); BLOOD UREA NITROGEN 12 MG/DL (7-18); CHLORIDE 105 MMOL/L (99-107); CREATININE 0.63 MG/DL (0.60-1.10); GLUCOSE 139 MG/DL (70-104); MAGNESIUM 1.8 MG/DL (1.5-2.4); PHOSPHORUS 2.4 MG/DL (2.3-4.5); SODIUM 139 MMOL/L (135-145); TOTAL CARBON DIOXIDE 27.9 MMOL/L (24-32); eGFR > 90 ML/MIN
--- NOTE | 2019-01-22 18:30 | NUR ---
Patient in room ICU 2042. I have received report from Kristy CHESTER and had the opportunity to ask questions and assume patient care.
[2019-01-22] MEDS: insulin glargine (Lantus) pen - multi-dose SQ SCH (20:36)
[2019-01-22 20:47] LABS: BASOPHILS % (AUTO) 0.4 % (0-1); EOSINOPHILS % (AUTO) 0 % (0-6); LYMPHOCYTES # (AUTO) 0.4 X10'3 (1.1-4.8); LYMPHOCYTES % (AUTO) 3.5 % (21-51); MEAN CORPUSCULAR HEMOGLOBIN 28.5 PG (27.0-31.0); MEAN CORPUSCULAR HGB CONC 34.3 g/dL (33.0-36.5); MONOCYTES # (AUTO) 0.9 X10'3 (0-0.9); MONOCYTES % (AUTO) 8.6 % (2-12); NEUTROPHILS # (AUTO) 8.9 X10'3 (1.8-7.7); NEUTROPHILS % (AUTO) 87.5 % (42-75); PLATELET COUNT 55 X10'3 (140-440); RED BLOOD COUNT 2.34 X10'6 (4.70-6.10); RED CELL DISTRIBUTION WIDTH 18.3 % (11.5-14.5); WHITE BLOOD COUNT 10.2 X10'3 (4.5-11.0)
[2019-01-22 21:02] LABS: ANION GAP 3 (8-16); BLOOD UREA NITROGEN 14 MG/DL (7-18); BUN/CREATININE RATIO 20.3 (5.4-32.0); CHLORIDE 106 MMOL/L (99-107); CREATININE 0.69 MG/DL (0.60-1.10); GLUCOSE 136 MG/DL (70-104); MAGNESIUM 1.9 MG/DL (1.5-2.4); PHOSPHORUS 2.9 MG/DL (2.3-4.5); POTASSIUM 4.1 MMOL/L (3.5-5.1); SODIUM 138 MMOL/L (135-145); TOTAL CARBON DIOXIDE 28.6 MMOL/L (24-32); eGFR > 90 ML/MIN
[2019-01-22 21:03] LABS: HEMATOCRIT 19.4 % (42.0-52.0); HEMOGLOBIN 6.7 g/dl (14.0-17.9)
[2019-01-23] VITALS (30 sets, daily range): BP systolic 85–128; BP diastolic 27–62
[2019-01-23] MEDS: gabapentin 300mg capsule PO SCH ×3 (00:11→16:00)
[2019-01-23] MEDS: amiodarone/D5 360MG/200ML BAG 200 ML IV SCH ×4 (00:45→12:53)
[2019-01-23] MEDS: HYDROmorphone/NS 1 mg/ml CADD 50 ML IV SCH ×11 (01:00→21:00)
[2019-01-23] MEDS: BICARB DIALYSIS W/CALCIUM SOL 5,000 ML HE SCH ×2 (02:07→02:08)
[2019-01-23] MEDS: insulin regular, human vial - multi-dose SQ SCH ×4 (02:16→20:56)
[2019-01-23 02:45] LABS: BASOPHILS % (AUTO) 0.3 % (0-1); EOSINOPHILS % (AUTO) 0 % (0-6); HEMATOCRIT 24.3 % (42.0-52.0); HEMOGLOBIN 8.2 g/dl (14.0-17.9); LYMPHOCYTES # (AUTO) 0.5 X10'3 (1.1-4.8); LYMPHOCYTES % (AUTO) 3.1 % (21-51); MEAN CORPUSCULAR HEMOGLOBIN 28.4 PG (27.0-31.0); MEAN CORPUSCULAR HGB CONC 33.7 g/dL (33.0-36.5); MEAN CORPUSCULAR VOLUME 84.3 FL (78-98); MEAN PLATELET VOLUME 8.3 FL (7.4-10.4); MONOCYTES # (AUTO) 1.5 X10'3 (0-0.9); MONOCYTES % (AUTO) 9.3 % (2-12); NEUTROPHILS # (AUTO) 14.4 X10'3 (1.8-7.7); NEUTROPHILS % (AUTO) 87.3 % (42-75); PLATELET COUNT 79 X10'3 (140-440); RED BLOOD COUNT 2.89 X10'6 (4.70-6.10); RED CELL DISTRIBUTION WIDTH 17.3 % (11.5-14.5); WHITE BLOOD COUNT 16.5 X10'3 (4.5-11.0)
[2019-01-23 02:49] LABS: ALANINE AMINOTRANSFERASE 21 U/L (12-78); ALBUMIN 2.1 G/DL (3.4-5.0); ALBUMIN/GLOBULIN RATIO 0.6 (1.1-1.5); ALKALINE PHOSPHATASE 164 IU/L (46-116); ANION GAP 4 (8-16); ASPARTATE AMINO TRANSFERASE 29 U/L (10-37); BILIRUBIN,TOTAL 1.1 MG/DL (0.1-1.0); BLOOD UREA NITROGEN 14 MG/DL (7-18); BUN/CREATININE RATIO 21.9 (5.4-32.0); CALCIUM 8.6 MG/DL (8.5-10.1); CHLORIDE 105 MMOL/L (99-107); CREATININE 0.64 MG/DL (0.60-1.10); GLUCOSE 155 MG/DL (70-104); MAGNESIUM 1.8 MG/DL (1.5-2.4); PHOSPHORUS 2.8 MG/DL (2.3-4.5); POTASSIUM 4.2 MMOL/L (3.5-5.1); SODIUM 138 MMOL/L (135-145); TOTAL CARBON DIOXIDE 28.9 MMOL/L (24-32); TOTAL PROTEIN 5.5 G/DL (6.4-8.2); eGFR > 90 ML/MIN
[2019-01-23 02:50] LABS: PARTIAL THROMBOPLASTIN TIME 33 SECONDS (22-32)
[2019-01-23 03:18] LABS: ANISOCYTOSIS 1+; PLATELET ESTIMATE DECREASED
[2019-01-23 04:16] LABS: ABG BASE EXCESS 0.1 mmol/L (-2.0-3.0); ABG HCO3 24.8 mmol/L (22.0-26.0); ABG OXYGEN SATURATION 97.9 % (95-98); ABG PCO2 (T) 38.7 mmHg (35.0-48.0); ABG PO2 (T) 107.9 mmHg (83-108); ALLEN'S TEST Positive; FCOHb 0.3 % (0.5-1.5); FMetHb 0.3 % (0.3-1.12); FO2Hb 97.3 % (94-100); PATIENT TEMPERATURE 36.1; PEEP 5 cm H2O; RESPIRATORY RATE 14 b/min; RESPIRATORY RATE (OBSERVED) 20 b/min; TIDAL VOLUME 500 mL; TOTAL HEMOGLOBIN 8.9 G/dl (14.0-18.0)
--- NOTE | 2019-01-23 06:30 | NUR ---
Patient in room ICU 2042. I have received report from NEOM Ware and had the opportunity to ask questions and assume patient care.
[2019-01-23] MEDS: linezolid 600mg/300ml PREMIX 300 ML IV SCH (07:57)
[2019-01-23] MEDS: pantoprazole 40 MG vial IV SCH (07:57)
[2019-01-23] MEDS: docusate sodium 100mg/10ml UD cup PO SCH ×2 (07:58→20:35)
[2019-01-23] MEDS: MOVANTIK 25 MG PO SCH (07:58)
[2019-01-23] MEDS: rifaximin 550mg tablet PO SCH ×2 (07:58→21:00)
[2019-01-23] MEDS: lactobacillus rhamnosus 10,000 MMU CELLS/CAPSULE PO SCH ×2 (07:58→20:36)
[2019-01-23] MEDS: ferrous sulfate 325mg tablet PO SCH ×3 (08:09→17:30)
[2019-01-23 08:23] LABS: BASOPHILS # (AUTO) 0.1 X10'3 (0-0.2); BASOPHILS % (AUTO) 0.5 % (0-1); EOSINOPHILS % (AUTO) 0 % (0-6); HEMATOCRIT 23.8 % (42.0-52.0); HEMOGLOBIN 7.9 g/dl (14.0-17.9); LYMPHOCYTES # (AUTO) 0.7 X10'3 (1.1-4.8); LYMPHOCYTES % (AUTO) 4.1 % (21-51); MEAN CORPUSCULAR HGB CONC 33.1 g/dL (33.0-36.5); MEAN CORPUSCULAR VOLUME 84.6 FL (78-98); MEAN PLATELET VOLUME 8.8 FL (7.4-10.4); MONOCYTES # (AUTO) 1.6 X10'3 (0-0.9); MONOCYTES % (AUTO) 9.1 % (2-12); NEUTROPHILS # (AUTO) 15.5 X10'3 (1.8-7.7); NEUTROPHILS % (AUTO) 86.3 % (42-75); PLATELET COUNT 95 X10'3 (140-440); RED BLOOD COUNT 2.82 X10'6 (4.70-6.10); RED CELL DISTRIBUTION WIDTH 17.4 % (11.5-14.5); WHITE BLOOD COUNT 17.9 X10'3 (4.5-11.0)
[2019-01-23 08:37] LABS: ANION GAP 4 (8-16); BLOOD UREA NITROGEN 15 MG/DL (7-18); BUN/CREATININE RATIO 22.7 (5.4-32.0); CHLORIDE 106 MMOL/L (99-107); CREATININE 0.66 MG/DL (0.60-1.10); GLUCOSE 148 MG/DL (70-104); MAGNESIUM 1.7 MG/DL (1.5-2.4); PHOSPHORUS 2.9 MG/DL (2.3-4.5); POTASSIUM 4.4 MMOL/L (3.5-5.1); SODIUM 138 MMOL/L (135-145); TOTAL CARBON DIOXIDE 28.5 MMOL/L (24-32); eGFR > 90 ML/MIN
[2019-01-23] MEDS: magnesium 4gm in 100ml NS 100 ML IV PRN (10:05)
--- NOTE | 2019-01-23 10:26 | NUR ---
Critical Care rounds: discussed patient status at length including all changes overnight and plan for today. Switching amio drip to PO. Planning to take out CVL and get a PICC line, CVVH to stop later today and get aniyah line out, plan to do another line for HD tomorrow. He states he is not in a slaughter to start another HD line until tomorrow due to oozing. Also clarified that he still wants a PICC line to replace CVL despite the fact that she's a chronic kidney disease patient who will probably need a fistula. Also discussed cultures that need to be obtained from paracentesis. Will contact IR to schedule time for procedure.
[2019-01-23] MEDS ORDERED: amiodarone 200mg tablet PO SCH (11:00)
--- NOTE | 2019-01-23 11:00 | NUR ---
Spoke with brother who requested update. states he will be coming by tomorrow to see patient after he's extubated.
[2019-01-23] MEDS: amiodarone 200mg tablet PO SCH ×2 (11:14→20:36)
--- NOTE | 2019-01-23 11:52 | NUR ---
PICC line nurse at bedside and tried for significantly long time to place line to left upper arm but not successful. She states she is going to come back after a different procedure and try right side but for now CVL still present. Will extubate while we wait for her to become available again.
--- NOTE | 2019-01-23 12:30 | NUR ---
1230 - Pt extubated to 2L, sats 92%, turned up to 4L and sats slowly came up to about 94-96%. Unable to verbalize answers to questions, but does nod head and make eye contact. Sounds very gurgley in throat but too deep to suction out with yankeur. Will continue to encourage coughing, cough quite weak at this time. HOB up to chair position. 1245 - During this time, the CRRT machine went down there was a clot in the line. CVVH machine taken down, aniyah jacinto'marie, pressure held for 20 minutes then pressure dressing placed. Will continue to monitor closely.
--- NOTE | 2019-01-23 13:44 | NUR ---
reassessment: Pt tolerating TF at goal rate 90 ml/hr. On CVVH. With large liquid stools out rectal tube, RN holding colace. Pt admit with NASH. Garcia 12 w/ skin intact. BMI down to 38 from 41 but no significant fluid balance changes noted with severe +4 pitting edemas remaining; likely differing bed scale wts. Will continue to monitor. Possible extubation today. Recommend: 1. continues tube feeding per OG tube using Vital High Protein at 90 ml/hr to provide total volume of 2160 ml, 2160 cals, 189 gm protein, and 1806 ml water. 2. Prealbumin Q monday and 3. daily weights 4. additional water flush per pricing actuary 5. when extubated advance diet as medically indicated to heart healthy Addendum: 01/23/19 at [address] Amended: Links added.
[2019-01-23] MEDS ORDERED: LIDOcaine 1%/PF 5ML 10 MG/ML VIAL ONE (14:40)
--- NOTE | 2019-01-23 14:40 | NUR ---
Called Dr Dove to let him know patient not doing well since being extubated. Pt sats beginning to get lower, unable to cough and clear secretions. Kristy charge nurse already tried to NT suction and pt did not respond with gag reflex, too weak to cough and sounds gurgley. He states to put patient on bipap and then prepare for probable intubation when he's able to come down and assess patient.
--- NOTE | 2019-01-23 15:00 | NUR ---
Bipap placed on patient, sats 81%, but increasing to low 90s.
--- NOTE | 2019-01-23 15:15 | NUR ---
Dr Dove at bedside while paracentesis happening, he assessed patient and states he will continue to be close by in case patient needs to be re-intubated. Pt on bipap at 80% FiO2 sats 96%.
[2019-01-23] MEDS ORDERED: albumin (human) 25% 100 ML IV solution IV ONE ×2 (15:40)
--- NOTE | 2019-01-23 15:40 | NUR ---
Dr Navarrete called to give orders for 3 bottles of albumin based on the 11 bottles of fluid pulled off during paracentesis. BP starting to drop. will administer and monitor clsoely.
--- NOTE | 2019-01-23 16:30 | NUR ---
Dr Dove at [facility] observing pt told about the three bottles of albumin and BP still has diastolic of 20s-30s he states if it does not improve in the next 30 mins to give a 250ml 5% bottle. He also states he will let the ER doctor know patient may decompensate and need to be reintubated. All equipment ready at bedside in case pt continues to decompensate.
[2019-01-23 16:33] LABS: LDH,BODY FLUID 46 U/L
[2019-01-23 16:34] LABS: ALBUMIN,BODY FLUID < 0.6 G/DL
[2019-01-23 16:38] LABS: LYMPHOCYTES,BODY FLUID 17 %; MONOCYTES,BODY FLUID 26 %; NEUTROPHILS,BODY FLUID 57 %
[2019-01-23 16:39] LABS: BF MESOTHELIAL CELLS FEW; BF RBC COUNT 13 /CU MM; BF WBC COUNT 45 /CU MM (0-1000); BFAPPEAR CLOUDY; BFCOLOR YELLOW; BFVOLUME 60 ML
[2019-01-23] MEDS ORDERED: albumin (Human) 5% 250ml 250 ML IV ONE (16:45)
--- NOTE | 2019-01-23 16:45 | NUR ---
Dr Dove states okay to get ABG
[2019-01-23 18:01] LABS: ABG BASE EXCESS 0.4 mmol/L (-2.0-3.0); ABG HCO3 32.3 mmol/L (22.0-26.0); ABG OXYGEN SATURATION 77.6 % (95-98); ABG PH (T) 6.997 (7.350-7.450); ABG PO2 (T) 59.4 mmHg (83-108); ALLEN'S TEST Positive; FCOHb 0.4 % (0.5-1.5); FMetHb 0.2 % (0.3-1.12); FO2Hb 77.1 % (94-100); MINUTE VOLUME 8 L/min; RESPIRATORY RATE 14 b/min; RESPIRATORY RATE (OBSERVED) 20 b/min; TIDAL VOLUME 396 mL; TOTAL HEMOGLOBIN 6.9 G/dl (14.0-18.0)
[2019-01-23] MEDS ORDERED: rocuronium 10mg/ml inj IV ONE (18:05)
[2019-01-23] MEDS ORDERED: etomidate 2mg/ml inj. IV ONE (18:05)
--- NOTE | 2019-01-23 18:05 | NUR ---
Dr Griggsfs at bedside for reintubation per the ABG results which were called as a critical to Dr Dove who is no longer in house. Meds ordered and drawn up.
--- NOTE | 2019-01-23 18:10 | NUR ---
Pt intubated, x-ray ordered, RT at bedside.
--- NOTE | 2019-01-23 18:25 | NUR ---
Problems reprioritized. Patient report given, questions answered & plan of care reviewed with NEMO Bangura.
--- NOTE | 2019-01-23 18:28 | NUR ---
Patient in room ICU 2042. I have received report from Yanet CHESTER and had the opportunity to ask questions and assume patient care. Pt hypotensive, BP:98/35, on Levophed@ 20mcg. Dr. Dove notified,orders received.
[2019-01-23] MEDS ORDERED: normal saline 1000ml 1,000 ML IVB ONE (18:29)
[2019-01-23] MEDS ORDERED: albumin (Human) 5% 250ml 250 ML IV PRN (18:30)
[2019-01-23 19:08] LABS: BASOPHILS # (AUTO) 0.1 X10'3 (0-0.2); BASOPHILS % (AUTO) 0.3 % (0-1); EOSINOPHILS % (AUTO) 0 % (0-6); LYMPHOCYTES # (AUTO) 0.4 X10'3 (1.1-4.8); LYMPHOCYTES % (AUTO) 1.9 % (21-51); MEAN CORPUSCULAR HEMOGLOBIN 28.2 PG (27.0-31.0); MEAN CORPUSCULAR HGB CONC 32.8 g/dL (33.0-36.5); MEAN CORPUSCULAR VOLUME 86.1 FL (78-98); MEAN PLATELET VOLUME 8.6 FL (7.4-10.4); MONOCYTES # (AUTO) 1.7 X10'3 (0-0.9); MONOCYTES % (AUTO) 7.2 % (2-12); NEUTROPHILS # (AUTO) 21.2 X10'3 (1.8-7.7); NEUTROPHILS % (AUTO) 90.6 % (42-75); PLATELET COUNT 115 X10'3 (140-440); RED BLOOD COUNT 2.19 X10'6 (4.70-6.10); RED CELL DISTRIBUTION WIDTH 18.1 % (11.5-14.5); WHITE BLOOD COUNT 23.4 X10'3 (4.5-11.0)
[2019-01-23 19:10] LABS: HEMOGLOBIN 6.2 g/dl (14.0-17.9)
[2019-01-23 19:11] LABS: HEMATOCRIT 18.8 % (42.0-52.0)
--- NOTE | 2019-01-23 19:15 | NUR ---
Shine at bedside. Update given, informed of critcal value H&H of 6.2/18.8. Orders received. Titrating Levophed to keep MAP greater than 65.
[2019-01-23] MEDS: NORepinephrine 8mg/ 250ml NS 250 ML IV SCH (19:16)
[2019-01-23 19:22] LABS: ALANINE AMINOTRANSFERASE 21 U/L (12-78); ALBUMIN 3.2 G/DL (3.4-5.0); ALBUMIN/GLOBULIN RATIO 1.2 (1.1-1.5); ALKALINE PHOSPHATASE 152 IU/L (46-116); ANION GAP 4 (8-16); ASPARTATE AMINO TRANSFERASE 28 U/L (10-37); BILIRUBIN,TOTAL 0.8 MG/DL (0.1-1.0); BLOOD UREA NITROGEN 19 MG/DL (7-18); BUN/CREATININE RATIO 22.6 (5.4-32.0); CALCIUM 8.5 MG/DL (8.5-10.1); CHLORIDE 105 MMOL/L (99-107); CREATININE 0.84 MG/DL (0.60-1.10); GLUCOSE 133 MG/DL (70-104); MAGNESIUM 2.6 MG/DL (1.5-2.4); PHOSPHORUS 5.5 MG/DL (2.3-4.5); POTASSIUM 4.9 MMOL/L (3.5-5.1); SODIUM 138 MMOL/L (135-145); TOTAL CARBON DIOXIDE 28.7 MMOL/L (24-32); TOTAL PROTEIN 5.9 G/DL (6.4-8.2); eGFR > 90 ML/MIN
[2019-01-23 19:31] LABS: ABG BASE EXCESS -0.5 mmol/L (-2.0-3.0); ABG HCO3 26.6 mmol/L (22.0-26.0); ABG OXYGEN SATURATION 92.5 % (95-98); ABG PCO2 (T) 58.2 mmHg (35.0-48.0); ABG PH (T) 7.275 (7.350-7.450); ABG PO2 (T) 70.5 mmHg (83-108); ALLEN'S TEST Positive; FCOHb 0.1 % (0.5-1.5); FMetHb 0.3 % (0.3-1.12); FO2Hb 92.1 % (94-100); MINUTE VOLUME 11 L/min; PATIENT TEMPERATURE 36.5; PEEP 5 cm H2O; RESPIRATORY RATE 20 b/min; RESPIRATORY RATE (OBSERVED) 20 b/min; TIDAL VOLUME 500 mL; TOTAL HEMOGLOBIN 6.8 G/dl (14.0-18.0)
[2019-01-23] MEDS ORDERED: pantoprazole 40 MG vial IV ONE (19:55)
[2019-01-23] MEDS: insulin glargine (Lantus) pen - multi-dose SQ SCH (20:59)
[2019-01-24] VITALS (29 sets, daily range): BP systolic 111–136; BP diastolic 38–52
[2019-01-24] MEDS: HYDROmorphone/NS 1 mg/ml CADD 50 ML IV SCH ×12 (01:00→23:00)
[2019-01-24] MEDS: gabapentin 300mg capsule PO SCH ×3 (01:00→16:46)
[2019-01-24] MEDS: NORepinephrine 8mg/ 250ml NS 250 ML IV PRN ×3 (01:01→22:01)
[2019-01-24 02:58] LABS: BASOPHILS # (AUTO) 0.1 X10'3 (0-0.2); BASOPHILS % (AUTO) 0.3 % (0-1); EOSINOPHILS % (AUTO) 0 % (0-6); HEMATOCRIT 22.5 % (42.0-52.0); HEMOGLOBIN 7.6 g/dl (14.0-17.9); LYMPHOCYTES # (AUTO) 0.7 X10'3 (1.1-4.8); LYMPHOCYTES % (AUTO) 3.1 % (21-51); MEAN CORPUSCULAR HEMOGLOBIN 28.9 PG (27.0-31.0); MEAN CORPUSCULAR HGB CONC 33.8 g/dL (33.0-36.5); MEAN CORPUSCULAR VOLUME 85.6 FL (78-98); MONOCYTES # (AUTO) 1.9 X10'3 (0-0.9); MONOCYTES % (AUTO) 8.1 % (2-12); NEUTROPHILS # (AUTO) 20.3 X10'3 (1.8-7.7); NEUTROPHILS % (AUTO) 88.5 % (42-75); PLATELET COUNT 88 X10'3 (140-440); RED BLOOD COUNT 2.63 X10'6 (4.70-6.10); RED CELL DISTRIBUTION WIDTH 16.5 % (11.5-14.5)
[2019-01-24] MEDS: insulin regular, human vial - multi-dose SQ SCH ×4 (03:02→21:24)
[2019-01-24 03:14] LABS: ALANINE AMINOTRANSFERASE 25 U/L (12-78); ALBUMIN 2.9 G/DL (3.4-5.0); ALKALINE PHOSPHATASE 140 IU/L (46-116); ANION GAP 7 (8-16); ASPARTATE AMINO TRANSFERASE 26 U/L (10-37); BILIRUBIN,TOTAL 1.3 MG/DL (0.1-1.0); BLOOD UREA NITROGEN 24 MG/DL (7-18); BUN/CREATININE RATIO 23.5 (5.4-32.0); CALCIUM 8.1 MG/DL (8.5-10.1); CHLORIDE 105 MMOL/L (99-107); CREATININE 1.02 MG/DL (0.60-1.10); GLUCOSE 143 MG/DL (70-104); MAGNESIUM 2.4 MG/DL (1.5-2.4); PHOSPHORUS 4.4 MG/DL (2.3-4.5); POTASSIUM 4.6 MMOL/L (3.5-5.1); PREALBUMIN 10.9 MG/DL (19-36); SODIUM 138 MMOL/L (135-145); TOTAL CARBON DIOXIDE 26.5 MMOL/L (24-32); TOTAL PROTEIN 5.7 G/DL (6.4-8.2); eGFR 76 ML/MIN
[2019-01-24 03:46] LABS: ABG BASE EXCESS -0.4 mmol/L (-2.0-3.0); ABG HCO3 24.9 mmol/L (22.0-26.0); ABG OXYGEN SATURATION 97.1 % (95-98); ABG PCO2 (T) 45.3 mmHg (35.0-48.0); ABG PH (T) 7.361 (7.350-7.450); ABG PO2 (T) 101.3 mmHg (83-108); ALLEN'S TEST Positive; FCOHb 0.3 % (0.5-1.5); FMetHb 0.1 % (0.3-1.12); FO2Hb 96.7 % (94-100); PATIENT TEMPERATURE 37.5; PEEP 5 cm H2O; RESPIRATORY RATE 20 b/min; RESPIRATORY RATE (OBSERVED) 20 b/min; TIDAL VOLUME 500 mL; TOTAL HEMOGLOBIN 8.3 G/dl (14.0-18.0)
--- NOTE | 2019-01-24 03:48 | NUR ---
Florinda Chin updated on current H&H and NH3 level. Orders received to recheck H&H Q6hr x2 an NH3 with 1400 draw.
[2019-01-24 04:25] LABS: ANISOCYTOSIS 1+; PLATELET ESTIMATE DECREASED
--- NOTE | 2019-01-24 06:30 | NUR ---
Patient in room ICU 2042. I have received report from NEMO Bangura and had the opportunity to ask questions and assume patient care.
--- NOTE | 2019-01-24 06:34 | NUR ---
Problems reprioritized. Patient report given, questions answered & plan of care reviewed with Yanet CHESTER.
[2019-01-24] MEDS: amiodarone 200mg tablet PO SCH (07:58)
[2019-01-24] MEDS: rifaximin 550mg tablet PO SCH ×2 (07:58→20:32)
[2019-01-24] MEDS: docusate sodium 100mg/10ml UD cup PO SCH ×2 (07:58→20:00)
[2019-01-24] MEDS: MOVANTIK 25 MG PO SCH (07:59)
[2019-01-24] MEDS: ferrous sulfate 325mg tablet PO SCH ×3 (07:59→16:46)
[2019-01-24] MEDS: pantoprazole 40 MG vial IV SCH (07:59)
[2019-01-24] MEDS: lactobacillus rhamnosus 10,000 MMU CELLS/CAPSULE PO SCH ×2 (07:59→20:32)
--- NOTE | 2019-01-24 08:00 | NUR ---
Dr Dove and Dr Jordan at bedside both given an update on the patient's status, details regarding the levophed, WBC, temp, green sputum, details regarding re-intubation, labs related to dropping hemogram. Orders being made by MDs, but plan for going back on CVVH and talk with brother Negrito about mcfp plan.
[2019-01-24 08:29] LABS: HEMATOCRIT 22.6 % (42.0-52.0); HEMOGLOBIN 7.5 g/dl (14.0-17.9); MEAN CORPUSCULAR HEMOGLOBIN 28.4 PG (27.0-31.0); PLATELET COUNT 106 X10'3 (140-440); RED BLOOD COUNT 2.62 X10'6 (4.70-6.10); RED CELL DISTRIBUTION WIDTH 16.9 % (11.5-14.5); WHITE BLOOD COUNT 20.6 X10'3 (4.5-11.0)
--- NOTE | 2019-01-24 09:15 | NUR ---
Dr Dove at bedside to place aniyah line.
[2019-01-24] MEDS ORDERED: albumin (Human) 5% 250ml 250 ML IV ONE ×2 (10:20→12:45)
--- NOTE | 2019-01-24 10:20 | NUR ---
Critical care rounds: discussed pt status in great detail. Will continue towards plan for CVVH today and have MD start speaking with brother Negrito about poor prognosis.
[2019-01-24] MEDS: cefepime 1GM/NS ADD-VANTAGE 100 ML IV SCH ×2 (10:45→20:32)
--- NOTE | 2019-01-24 11:50 | NUR ---
reassessment: Pt tolerating TF at goal rate 90 ml/hr. On CVVH. With large liquid stools out rectal tube, RN holding colace. Pt admit with NASH. Garcia 12 w/ skin intact. BMI down to 38 from 41 but no significant fluid balance changes noted with severe +4 pitting edemas remaining; likely differing bed scale wts. Will continue to monitor. Possible extubation today. Recommend: 1. continues tube feeding per OG tube using Vital High Protein at 90 ml/hr to provide total volume of 2160 ml, 2160 cals, 189 gm protein, and 1806 ml water. 2. Prealbumin Q monday and 3. daily weights 4. additional water flush per echo vascular tech 5. when extubated advance diet as medically indicated to heart healthy Addendum: 01/24/19 at [address] Amended: Links added.
[2019-01-24] MEDS: hydrocortisone sod succ/PF 100mg/2ml inj. IV SCH ×2 (13:21→20:32)
[2019-01-24] MEDS: lactulose 20gm/30ml cup PO SCH ×2 (13:21→20:33)
[2019-01-24] MEDS: BICARB DIALYSIS W/CALCIUM SOL 5,000 ML HE SCH ×5 (13:27→20:47)
--- NOTE | 2019-01-24 14:00 | NUR ---
CVVH started at 1400 with dialysis nurse present. Line drawing and and flushing well. No alarms at this time.
[2019-01-24 14:17] LABS: BASOPHILS # (AUTO) 0.1 X10'3 (0-0.2); BASOPHILS % (AUTO) 0.4 % (0-1); EOSINOPHILS % (AUTO) 0 % (0-6); LYMPHOCYTES # (AUTO) 0.5 X10'3 (1.1-4.8); LYMPHOCYTES % (AUTO) 3.4 % (21-51); MEAN CORPUSCULAR HEMOGLOBIN 29.2 PG (27.0-31.0); MEAN CORPUSCULAR HGB CONC 33.8 g/dL (33.0-36.5); MEAN CORPUSCULAR VOLUME 86.3 FL (78-98); MEAN PLATELET VOLUME 7.8 FL (7.4-10.4); MONOCYTES # (AUTO) 1.3 X10'3 (0-0.9); MONOCYTES % (AUTO) 8.7 % (2-12); NEUTROPHILS # (AUTO) 13.4 X10'3 (1.8-7.7); NEUTROPHILS % (AUTO) 87.5 % (42-75); PLATELET COUNT 93 X10'3 (140-440); RED BLOOD COUNT 2.23 X10'6 (4.70-6.10); RED CELL DISTRIBUTION WIDTH 17.1 % (11.5-14.5); WHITE BLOOD COUNT 15.3 X10'3 (4.5-11.0)
[2019-01-24 14:20] LABS: HEMATOCRIT 19.3 % (42.0-52.0); HEMOGLOBIN 6.5 g/dl (14.0-17.9)
[2019-01-24 14:24] LABS: ALBUMIN 2.7 G/DL (3.4-5.0); ANION GAP 9 (8-16); BLOOD UREA NITROGEN 33 MG/DL (7-18); CHLORIDE 106 MMOL/L (99-107); CREATININE 1.22 MG/DL (0.60-1.10); GLUCOSE 165 MG/DL (70-104); MAGNESIUM 2.2 MG/DL (1.5-2.4); PHOSPHORUS 4.1 MG/DL (2.3-4.5); POTASSIUM 4.3 MMOL/L (3.5-5.1); SODIUM 139 MMOL/L (135-145); TOTAL CARBON DIOXIDE 24.5 MMOL/L (24-32); eGFR 61 ML/MIN
--- NOTE | 2019-01-24 14:40 | NUR ---
Called Dr Dove about critical H/H, he states okay to give two units of blood now and continue to watch closely. I told him labs would be drawn q1h for 4 hours due to CVVH. He also states he spoke with son in the elevator and gave him poor prognosis for patient.
[2019-01-24 15:17] LABS: BASOPHILS # (AUTO) 0.1 X10'3 (0-0.2); BASOPHILS % (AUTO) 0.4 % (0-1); EOSINOPHILS % (AUTO) 0 % (0-6); LYMPHOCYTES # (AUTO) 0.4 X10'3 (1.1-4.8); LYMPHOCYTES % (AUTO) 2.5 % (21-51); MEAN CORPUSCULAR HEMOGLOBIN 28.6 PG (27.0-31.0); MEAN CORPUSCULAR HGB CONC 33.3 g/dL (33.0-36.5); MEAN CORPUSCULAR VOLUME 85.7 FL (78-98); MEAN PLATELET VOLUME 7.5 FL (7.4-10.4); MONOCYTES # (AUTO) 0.9 X10'3 (0-0.9); MONOCYTES % (AUTO) 6.2 % (2-12); NEUTROPHILS # (AUTO) 13.6 X10'3 (1.8-7.7); NEUTROPHILS % (AUTO) 90.9 % (42-75); PLATELET COUNT 84 X10'3 (140-440); RED BLOOD COUNT 2.32 X10'6 (4.70-6.10)
[2019-01-24 15:39] LABS: HEMATOCRIT 19.9 % (42.0-52.0); HEMOGLOBIN 6.6 g/dl (14.0-17.9)
[2019-01-24 16:04] LABS: ALBUMIN 2.7 G/DL (3.4-5.0); ANION GAP 9 (8-16); BLOOD UREA NITROGEN 33 MG/DL (7-18); CHLORIDE 105 MMOL/L (99-107); CREATININE 1.18 MG/DL (0.60-1.10); GLUCOSE 183 MG/DL (70-104); MAGNESIUM 2.2 MG/DL (1.5-2.4); PHOSPHORUS 4.2 MG/DL (2.3-4.5); POTASSIUM 4.3 MMOL/L (3.5-5.1); SODIUM 139 MMOL/L (135-145); TOTAL CARBON DIOXIDE 24.7 MMOL/L (24-32); eGFR 64 ML/MIN
[2019-01-24 16:21] LABS: BASOPHILS # (AUTO) 0.1 X10'3 (0-0.2); BASOPHILS % (AUTO) 0.5 % (0-1); EOSINOPHILS % (AUTO) 0 % (0-6); LYMPHOCYTES # (AUTO) 0.3 X10'3 (1.1-4.8); LYMPHOCYTES % (AUTO) 1.8 % (21-51); MEAN CORPUSCULAR HEMOGLOBIN 28.5 PG (27.0-31.0); MEAN CORPUSCULAR HGB CONC 33.1 g/dL (33.0-36.5); MEAN CORPUSCULAR VOLUME 85.9 FL (78-98); MEAN PLATELET VOLUME 7.6 FL (7.4-10.4); MONOCYTES % (AUTO) 5.9 % (2-12); NEUTROPHILS # (AUTO) 14.9 X10'3 (1.8-7.7); NEUTROPHILS % (AUTO) 91.8 % (42-75); PLATELET COUNT 86 X10'3 (140-440); RED BLOOD COUNT 2.35 X10'6 (4.70-6.10); RED CELL DISTRIBUTION WIDTH 17.2 % (11.5-14.5); WHITE BLOOD COUNT 16.2 X10'3 (4.5-11.0)
[2019-01-24 16:39] LABS: ALBUMIN 2.8 G/DL (3.4-5.0); ANION GAP 5 (8-16); BLOOD UREA NITROGEN 34 MG/DL (7-18); BUN/CREATININE RATIO 28.8 (5.4-32.0); CHLORIDE 105 MMOL/L (99-107); CREATININE 1.18 MG/DL (0.60-1.10); GLUCOSE 174 MG/DL (70-104); MAGNESIUM 2.2 MG/DL (1.5-2.4); PHOSPHORUS 4.2 MG/DL (2.3-4.5); POTASSIUM 4.3 MMOL/L (3.5-5.1); SODIUM 137 MMOL/L (135-145); TOTAL CARBON DIOXIDE 26.7 MMOL/L (24-32); eGFR 64 ML/MIN
[2019-01-24] MEDS: midodrine 5mg tablet PO SCH (16:46)
[2019-01-24 17:06] LABS: HEMATOCRIT 20.2 % (42.0-52.0); HEMOGLOBIN 6.7 g/dl (14.0-17.9)
[2019-01-24 17:25] LABS: BASOPHILS % (AUTO) 0.2 % (0-1); EOSINOPHILS % (AUTO) 0 % (0-6); HEMATOCRIT 22.1 % (42.0-52.0); HEMOGLOBIN 7.2 g/dl (14.0-17.9); LYMPHOCYTES # (AUTO) 0.3 X10'3 (1.1-4.8); LYMPHOCYTES % (AUTO) 1.5 % (21-51); MEAN CORPUSCULAR HEMOGLOBIN 28.6 PG (27.0-31.0); MEAN CORPUSCULAR HGB CONC 32.7 g/dL (33.0-36.5); MEAN CORPUSCULAR VOLUME 87.2 FL (78-98); MEAN PLATELET VOLUME 7.5 FL (7.4-10.4); NEUTROPHILS # (AUTO) 15.8 X10'3 (1.8-7.7); NEUTROPHILS % (AUTO) 92.3 % (42-75); PLATELET COUNT 86 X10'3 (140-440); RED BLOOD COUNT 2.54 X10'6 (4.70-6.10); RED CELL DISTRIBUTION WIDTH 17.1 % (11.5-14.5); WHITE BLOOD COUNT 17.1 X10'3 (4.5-11.0)
[2019-01-24 17:35] LABS: ALBUMIN 2.8 G/DL (3.4-5.0); ANION GAP 10 (8-16); BLOOD UREA NITROGEN 33 MG/DL (7-18); CHLORIDE 105 MMOL/L (99-107); CREATININE 1.18 MG/DL (0.60-1.10); GLUCOSE 173 MG/DL (70-104); MAGNESIUM 2.3 MG/DL (1.5-2.4); PHOSPHORUS 4.2 MG/DL (2.3-4.5); POTASSIUM 4.5 MMOL/L (3.5-5.1); SODIUM 142 MMOL/L (135-145); TOTAL CARBON DIOXIDE 27.2 MMOL/L (24-32); eGFR 64 ML/MIN
--- NOTE | 2019-01-24 18:00 | NUR ---
Temp trending down since being on CVVH so I turned up the heater on the CVVH machine to moderately high to attempt to slow down the temp decrease trend.
[2019-01-24 18:29] LABS: BASOPHILS % (AUTO) 0.1 % (0-1); EOSINOPHILS % (AUTO) 0 % (0-6); HEMATOCRIT 22.8 % (42.0-52.0); HEMOGLOBIN 7.6 g/dl (14.0-17.9); LYMPHOCYTES # (AUTO) 0.2 X10'3 (1.1-4.8); LYMPHOCYTES % (AUTO) 1.4 % (21-51); MEAN CORPUSCULAR HEMOGLOBIN 28.9 PG (27.0-31.0); MEAN CORPUSCULAR HGB CONC 33.2 g/dL (33.0-36.5); MEAN CORPUSCULAR VOLUME 87.1 FL (78-98); MEAN PLATELET VOLUME 7.7 FL (7.4-10.4); MONOCYTES # (AUTO) 0.8 X10'3 (0-0.9); MONOCYTES % (AUTO) 4.9 % (2-12); NEUTROPHILS # (AUTO) 15.8 X10'3 (1.8-7.7); NEUTROPHILS % (AUTO) 93.6 % (42-75); PLATELET COUNT 86 X10'3 (140-440); RED BLOOD COUNT 2.62 X10'6 (4.70-6.10); WHITE BLOOD COUNT 16.9 X10'3 (4.5-11.0)
--- NOTE | 2019-01-24 18:30 | NUR ---
Patient in room ICU 2042. I have received report from Yanet CHESTER and had the opportunity to ask questions and assume patient care. CVVH running via dialysis catheter in L groin. Titrating Levophed to keep MAP greater than 65.
[2019-01-24 18:32] LABS: ALBUMIN 2.9 G/DL (3.4-5.0); ANION GAP 9 (8-16); BLOOD UREA NITROGEN 32 MG/DL (7-18); BUN/CREATININE RATIO 30.8 (5.4-32.0); CHLORIDE 105 MMOL/L (99-107); CREATININE 1.04 MG/DL (0.60-1.10); GLUCOSE 172 MG/DL (70-104); MAGNESIUM 2.2 MG/DL (1.5-2.4); POTASSIUM 4.4 MMOL/L (3.5-5.1); SODIUM 139 MMOL/L (135-145); TOTAL CARBON DIOXIDE 24.9 MMOL/L (24-32); eGFR 74 ML/MIN
--- NOTE | 2019-01-24 18:39 | NUR ---
Problems reprioritized. Patient report given, questions answered & plan of care reviewed with NEMO Bangura.
--- NOTE | 2019-01-24 19:49 | NUR ---
CVVH down. bar staff in route to restart. Pt opens eyes spontaneously, nods head in response to questioning.
[2019-01-24 20:59] LABS: BASOPHILS % (AUTO) 0.1 % (0-1); EOSINOPHILS % (AUTO) 0 % (0-6); HEMATOCRIT 25.5 % (42.0-52.0); HEMOGLOBIN 8.6 g/dl (14.0-17.9); LYMPHOCYTES # (AUTO) 0.3 X10'3 (1.1-4.8); LYMPHOCYTES % (AUTO) 1.8 % (21-51); MEAN CORPUSCULAR HEMOGLOBIN 29.3 PG (27.0-31.0); MEAN CORPUSCULAR HGB CONC 33.7 g/dL (33.0-36.5); MEAN CORPUSCULAR VOLUME 86.9 FL (78-98); MEAN PLATELET VOLUME 7.6 FL (7.4-10.4); MONOCYTES # (AUTO) 0.7 X10'3 (0-0.9); MONOCYTES % (AUTO) 4.3 % (2-12); NEUTROPHILS # (AUTO) 15.2 X10'3 (1.8-7.7); NEUTROPHILS % (AUTO) 93.8 % (42-75); PLATELET COUNT 74 X10'3 (140-440); RED BLOOD COUNT 2.93 X10'6 (4.70-6.10); RED CELL DISTRIBUTION WIDTH 16.7 % (11.5-14.5); WHITE BLOOD COUNT 16.2 X10'3 (4.5-11.0)
[2019-01-24 21:08] LABS: ALBUMIN 2.9 G/DL (3.4-5.0); ANION GAP 8 (8-16); BLOOD UREA NITROGEN 32 MG/DL (7-18); BUN/CREATININE RATIO 28.8 (5.4-32.0); CHLORIDE 106 MMOL/L (99-107); CREATININE 1.11 MG/DL (0.60-1.10); GLUCOSE 187 MG/DL (70-104); MAGNESIUM 2.2 MG/DL (1.5-2.4); POTASSIUM 4.4 MMOL/L (3.5-5.1); SODIUM 139 MMOL/L (135-145); TOTAL CARBON DIOXIDE 25.4 MMOL/L (24-32); eGFR 69 ML/MIN
[2019-01-24] MEDS: insulin glargine (Lantus) pen - multi-dose SQ SCH (21:25)
--- NOTE | 2019-01-24 21:35 | NUR ---
CVVH restarted, beginning@UF rate of 200. Titrating Levophed to keep MAP greater than 65. Tolerating well.
[2019-01-25] VITALS (24 sets, daily range): BP systolic 91–129; BP diastolic 34–69
[2019-01-25] MEDS: midodrine 5mg tablet PO SCH ×3 (00:27→15:51)
[2019-01-25] MEDS: gabapentin 300mg capsule PO SCH ×3 (00:27→15:52)
[2019-01-25] MEDS: HYDROmorphone/NS 1 mg/ml CADD 50 ML IV SCH ×12 (01:00→23:00)
--- NOTE | 2019-01-25 01:12 | NUR ---
CVVH function positional with turns as well as alarming venous pressure decreasing and stops blood pump with NS flush to assess filter. Able to restart.
[2019-01-25] MEDS: lactulose 20gm/30ml cup PO SCH ×4 (02:26→20:05)
[2019-01-25] MEDS: hydrocortisone sod succ/PF 100mg/2ml inj. IV SCH ×4 (02:26→20:05)
[2019-01-25 03:23] LABS: BASOPHILS % (AUTO) 0.1 % (0-1); EOSINOPHILS % (AUTO) 0 % (0-6); HEMATOCRIT 24.1 % (42.0-52.0); LYMPHOCYTES # (AUTO) 0.2 X10'3 (1.1-4.8); LYMPHOCYTES % (AUTO) 1.9 % (21-51); MEAN CORPUSCULAR HEMOGLOBIN 29.2 PG (27.0-31.0); MEAN CORPUSCULAR HGB CONC 33.2 g/dL (33.0-36.5); MEAN CORPUSCULAR VOLUME 87.7 FL (78-98); MEAN PLATELET VOLUME 7.7 FL (7.4-10.4); MONOCYTES # (AUTO) 0.7 X10'3 (0-0.9); MONOCYTES % (AUTO) 5.7 % (2-12); NEUTROPHILS # (AUTO) 11.5 X10'3 (1.8-7.7); NEUTROPHILS % (AUTO) 92.3 % (42-75); PLATELET COUNT 66 X10'3 (140-440); RED BLOOD COUNT 2.75 X10'6 (4.70-6.10); RED CELL DISTRIBUTION WIDTH 16.8 % (11.5-14.5); WHITE BLOOD COUNT 12.4 X10'3 (4.5-11.0)
[2019-01-25] MEDS: insulin regular, human vial - multi-dose SQ SCH ×4 (03:30→20:17)
[2019-01-25 03:32] LABS: ALANINE AMINOTRANSFERASE 48 U/L (12-78); ALBUMIN 2.6 G/DL (3.4-5.0); ALKALINE PHOSPHATASE 185 IU/L (46-116); ANION GAP 6 (8-16); ASPARTATE AMINO TRANSFERASE 84 U/L (10-37); BILIRUBIN,TOTAL 1.3 MG/DL (0.1-1.0); BLOOD UREA NITROGEN 32 MG/DL (7-18); BUN/CREATININE RATIO 30.8 (5.4-32.0); CHLORIDE 107 MMOL/L (99-107); CREATININE 1.04 MG/DL (0.60-1.10); GLUCOSE 165 MG/DL (70-104); PHOSPHORUS 3.2 MG/DL (2.3-4.5); POTASSIUM 4.1 MMOL/L (3.5-5.1); SODIUM 141 MMOL/L (135-145); TOTAL CARBON DIOXIDE 27.7 MMOL/L (24-32); TOTAL PROTEIN 5.3 G/DL (6.4-8.2); eGFR 74 ML/MIN
[2019-01-25 03:40] LABS: ABG BASE EXCESS -0.8 mmol/L (-2.0-3.0); ABG HCO3 23.7 mmol/L (22.0-26.0); ABG OXYGEN SATURATION 96.2 % (95-98); ABG PH (T) 7.422 (7.350-7.450); ABG PO2 (T) 82.3 mmHg (83-108); ALLEN'S TEST Positive; FCOHb 0.2 % (0.5-1.5); FMetHb 0.2 % (0.3-1.12); FO2Hb 95.8 % (94-100); MINUTE VOLUME 13 L/min; PATIENT TEMPERATURE 36.2; PEEP 5 cm H2O; RESPIRATORY RATE 20 b/min; RESPIRATORY RATE (OBSERVED) 25 b/min; TIDAL VOLUME 500 mL; TOTAL HEMOGLOBIN 8.9 G/dl (14.0-18.0)
--- NOTE | 2019-01-25 04:25 | NUR ---
AM labs reviewed, Rosa notified. Orders received. Titrating Levophed down as tolerated to keep MAP greater than 65.
--- NOTE | 2019-01-25 06:21 | NUR ---
Problems reprioritized. Patient report given, questions answered & plan of care reviewed with Keegan CHESTER.
[2019-01-25] MEDS: amiodarone 200mg tablet PO SCH ×2 (07:38→08:36)
[2019-01-25] MEDS: docusate sodium 100mg/10ml UD cup PO SCH ×2 (08:00→19:38)
[2019-01-25] MEDS: cefepime 1GM/NS ADD-VANTAGE 100 ML IV SCH ×2 (08:21→20:05)
[2019-01-25] MEDS: lactobacillus rhamnosus 10,000 MMU CELLS/CAPSULE PO SCH ×2 (08:34→20:05)
[2019-01-25] MEDS: ferrous sulfate 325mg tablet PO SCH ×3 (08:35→17:41)
[2019-01-25] MEDS: pantoprazole 40 MG vial IV SCH (08:36)
[2019-01-25] MEDS: rifaximin 550mg tablet PO SCH ×2 (08:36→20:05)
[2019-01-25 08:38] LABS: BASOPHILS % (AUTO) 0 % (0-1); EOSINOPHILS % (AUTO) 0 % (0-6); HEMATOCRIT 23.5 % (42.0-52.0); HEMOGLOBIN 7.9 g/dl (14.0-17.9); LYMPHOCYTES # (AUTO) 0.3 X10'3 (1.1-4.8); LYMPHOCYTES % (AUTO) 2.3 % (21-51); MEAN CORPUSCULAR HEMOGLOBIN 29.1 PG (27.0-31.0); MEAN CORPUSCULAR HGB CONC 33.4 g/dL (33.0-36.5); MEAN CORPUSCULAR VOLUME 87.2 FL (78-98); MEAN PLATELET VOLUME 7.3 FL (7.4-10.4); MONOCYTES # (AUTO) 0.6 X10'3 (0-0.9); MONOCYTES % (AUTO) 5.4 % (2-12); NEUTROPHILS # (AUTO) 10.3 X10'3 (1.8-7.7); NEUTROPHILS % (AUTO) 92.3 % (42-75); PLATELET COUNT 58 X10'3 (140-440); WHITE BLOOD COUNT 11.1 X10'3 (4.5-11.0)
[2019-01-25 08:42] LABS: ALBUMIN 2.6 G/DL (3.4-5.0); ANION GAP 5 (8-16); BLOOD UREA NITROGEN 30 MG/DL (7-18); BUN/CREATININE RATIO 32.6 (5.4-32.0); CHLORIDE 108 MMOL/L (99-107); CREATININE 0.92 MG/DL (0.60-1.10); GLUCOSE 149 MG/DL (70-104); PHOSPHORUS 2.8 MG/DL (2.3-4.5); SODIUM 141 MMOL/L (135-145); eGFR 85 ML/MIN
[2019-01-25] MEDS: BICARB DIALYSIS W/CALCIUM SOL 5,000 ML HE SCH ×6 (08:45→15:25)
--- NOTE | 2019-01-25 10:27 | NUR ---
Per gee Dias to increase the blood flow rate from 250ml/min to 350ml/min. Also, UF rate increased this AM from 0 to 50. Levophed down to 2mcg/min; Midodrine administered.
[2019-01-25 14:17] LABS: BASOPHILS % (AUTO) 0.1 % (0-1); EOSINOPHILS % (AUTO) 0 % (0-6); HEMATOCRIT 23.8 % (42.0-52.0); HEMOGLOBIN 7.9 g/dl (14.0-17.9); LYMPHOCYTES # (AUTO) 0.3 X10'3 (1.1-4.8); LYMPHOCYTES % (AUTO) 2.3 % (21-51); MEAN CORPUSCULAR HEMOGLOBIN 29.1 PG (27.0-31.0); MEAN CORPUSCULAR VOLUME 88.3 FL (78-98); MEAN PLATELET VOLUME 7.7 FL (7.4-10.4); MONOCYTES # (AUTO) 0.6 X10'3 (0-0.9); MONOCYTES % (AUTO) 5.5 % (2-12); NEUTROPHILS # (AUTO) 10.4 X10'3 (1.8-7.7); NEUTROPHILS % (AUTO) 92.1 % (42-75); PLATELET COUNT 57 X10'3 (140-440); RED CELL DISTRIBUTION WIDTH 16.6 % (11.5-14.5); WHITE BLOOD COUNT 11.3 X10'3 (4.5-11.0)
[2019-01-25 14:27] LABS: ALBUMIN 2.7 G/DL (3.4-5.0); ANION GAP 6 (8-16); BLOOD UREA NITROGEN 28 MG/DL (7-18); BUN/CREATININE RATIO 31.1 (5.4-32.0); CHLORIDE 107 MMOL/L (99-107); GLUCOSE 155 MG/DL (70-104); MAGNESIUM 1.9 MG/DL (1.5-2.4); PHOSPHORUS 2.4 MG/DL (2.3-4.5); POTASSIUM 3.8 MMOL/L (3.5-5.1); SODIUM 141 MMOL/L (135-145); TOTAL CARBON DIOXIDE 28.5 MMOL/L (24-32); eGFR 87 ML/MIN
[2019-01-25] MEDS: potassium Cl 20mEq/100mL bag 100 ML IV PRN ×2 (15:51→17:06)
--- NOTE | 2019-01-25 18:30 | NUR ---
Patient in room ICU 2042. I have received report from Keegan CHESTER and had the opportunity to ask questions and assume patient care.
[2019-01-25] MEDS: NORepinephrine 8mg/ 250ml NS 250 ML IV SCH (19:20)
[2019-01-25] MEDS: insulin glargine (Lantus) pen - multi-dose SQ SCH (20:17)
[2019-01-25 20:39] LABS: BASOPHILS % (AUTO) 0.1 % (0-1); EOSINOPHILS % (AUTO) 0 % (0-6); HEMATOCRIT 24.7 % (42.0-52.0); HEMOGLOBIN 8.2 g/dl (14.0-17.9); LYMPHOCYTES # (AUTO) 0.3 X10'3 (1.1-4.8); LYMPHOCYTES % (AUTO) 2.1 % (21-51); MEAN CORPUSCULAR HEMOGLOBIN 29.4 PG (27.0-31.0); MEAN CORPUSCULAR HGB CONC 33.1 g/dL (33.0-36.5); MEAN CORPUSCULAR VOLUME 88.8 FL (78-98); MEAN PLATELET VOLUME 7.7 FL (7.4-10.4); MONOCYTES # (AUTO) 0.8 X10'3 (0-0.9); MONOCYTES % (AUTO) 6.7 % (2-12); NEUTROPHILS # (AUTO) 11.4 X10'3 (1.8-7.7); NEUTROPHILS % (AUTO) 91.1 % (42-75); PLATELET COUNT 60 X10'3 (140-440); RED BLOOD COUNT 2.79 X10'6 (4.70-6.10); RED CELL DISTRIBUTION WIDTH 17.5 % (11.5-14.5); WHITE BLOOD COUNT 12.6 X10'3 (4.5-11.0)
[2019-01-25 20:43] LABS: ALBUMIN 2.7 G/DL (3.4-5.0); ANION GAP 5 (8-16); BLOOD UREA NITROGEN 29 MG/DL (7-18); BUN/CREATININE RATIO 33.7 (5.4-32.0); CHLORIDE 108 MMOL/L (99-107); CREATININE 0.86 MG/DL (0.60-1.10); GLUCOSE 137 MG/DL (70-104); MAGNESIUM 1.9 MG/DL (1.5-2.4); PHOSPHORUS 2.3 MG/DL (2.3-4.5); POTASSIUM 4.4 MMOL/L (3.5-5.1); SODIUM 141 MMOL/L (135-145); eGFR > 90 ML/MIN
[2019-01-26] VITALS (24 sets, daily range): BP systolic 94–126; BP diastolic 35–62
[2019-01-26] MEDS: HYDROmorphone/NS 1 mg/ml CADD 50 ML IV SCH ×12 (01:00→23:12)
[2019-01-26] MEDS: gabapentin 300mg capsule PO SCH ×3 (01:05→16:16)
[2019-01-26] MEDS: midodrine 5mg tablet PO SCH ×3 (01:05→16:16)
[2019-01-26] MEDS: lactulose 20gm/30ml cup PO SCH ×4 (02:06→20:21)
[2019-01-26] MEDS: hydrocortisone sod succ/PF 100mg/2ml inj. IV SCH ×4 (02:06→20:21)
[2019-01-26] MEDS: insulin regular, human vial - multi-dose SQ SCH ×4 (02:35→20:27)
[2019-01-26 03:26] LABS: BASOPHILS % (AUTO) 0.1 % (0-1); EOSINOPHILS % (AUTO) 0 % (0-6); HEMATOCRIT 24.8 % (42.0-52.0); HEMOGLOBIN 8.2 g/dl (14.0-17.9); LYMPHOCYTES # (AUTO) 0.3 X10'3 (1.1-4.8); LYMPHOCYTES % (AUTO) 2.4 % (21-51); MEAN CORPUSCULAR HEMOGLOBIN 29.6 PG (27.0-31.0); MEAN CORPUSCULAR HGB CONC 33.2 g/dL (33.0-36.5); MEAN CORPUSCULAR VOLUME 89.2 FL (78-98); MONOCYTES # (AUTO) 0.7 X10'3 (0-0.9); MONOCYTES % (AUTO) 6.2 % (2-12); NEUTROPHILS # (AUTO) 10.7 X10'3 (1.8-7.7); NEUTROPHILS % (AUTO) 91.3 % (42-75); PLATELET COUNT 56 X10'3 (140-440); RED BLOOD COUNT 2.79 X10'6 (4.70-6.10); WHITE BLOOD COUNT 11.7 X10'3 (4.5-11.0)
[2019-01-26 03:35] LABS: ALBUMIN 2.7 G/DL (3.4-5.0); ANION GAP 6 (8-16); BLOOD UREA NITROGEN 28 MG/DL (7-18); BUN/CREATININE RATIO 36.4 (5.4-32.0); CHLORIDE 108 MMOL/L (99-107); CREATININE 0.77 MG/DL (0.60-1.10); GLUCOSE 149 MG/DL (70-104); MAGNESIUM 1.8 MG/DL (1.5-2.4); POTASSIUM 4.1 MMOL/L (3.5-5.1); SODIUM 142 MMOL/L (135-145); TOTAL CARBON DIOXIDE 27.8 MMOL/L (24-32); eGFR > 90 ML/MIN
[2019-01-26 03:46] LABS: ALANINE AMINOTRANSFERASE 212 U/L (12-78); ALBUMIN 2.6 G/DL (3.4-5.0); ALBUMIN/GLOBULIN RATIO 0.8 (1.1-1.5); ALKALINE PHOSPHATASE 293 IU/L (46-116); ANION GAP 6 (8-16); ASPARTATE AMINO TRANSFERASE 396 U/L (10-37); BILIRUBIN,TOTAL 1.5 MG/DL (0.1-1.0); BLOOD UREA NITROGEN 28 MG/DL (7-18); BUN/CREATININE RATIO 36.8 (5.4-32.0); CALCIUM 8.3 MG/DL (8.5-10.1); CHLORIDE 108 MMOL/L (99-107); CREATININE 0.76 MG/DL (0.60-1.10); GLUCOSE 148 MG/DL (70-104); MAGNESIUM 1.8 MG/DL (1.5-2.4); POTASSIUM 4.1 MMOL/L (3.5-5.1); SODIUM 141 MMOL/L (135-145); TOTAL CARBON DIOXIDE 27.3 MMOL/L (24-32); TOTAL PROTEIN 5.7 G/DL (6.4-8.2); eGFR > 90 ML/MIN
[2019-01-26 04:45] LABS: ABG BASE EXCESS 1.6 mmol/L (-2.0-3.0); ABG HCO3 25.7 mmol/L (22.0-26.0); ABG OXYGEN SATURATION 96.8 % (95-98); ABG PH (T) 7.456 (7.350-7.450); ABG PO2 (T) 84.7 mmHg (83-108); ALLEN'S TEST Positive; FCOHb 0.3 % (0.5-1.5); FMetHb 0.3 % (0.3-1.12); FO2Hb 96.2 % (94-100); MINUTE VOLUME 13 L/min; PATIENT TEMPERATURE 36.1; PEEP 5 cm H2O; RESPIRATORY RATE 20 b/min; RESPIRATORY RATE (OBSERVED) 27 b/min; TIDAL VOLUME 500 mL; TOTAL HEMOGLOBIN 8.9 G/dl (14.0-18.0)
--- NOTE | 2019-01-26 06:22 | NUR ---
Problems reprioritized. Patient report given, questions answered & plan of care reviewed with Keegan CHESTER.
[2019-01-26] MEDS: docusate sodium 100mg/10ml UD cup PO SCH ×2 (07:22→20:21)
--- NOTE | 2019-01-26 07:46 | NUR ---
(+) MDRO / Pseudomonas in Sputum; Dr. Tineo aware; new abx ordered. D/C Maxipime. Pt remains in isolation. Will educate pt/family.
[2019-01-26] MEDS: meropenem inj 1 GM in normal saline 100ml IV soln 100 ML IV SCH ×2 (08:08→16:16)
[2019-01-26 08:10] LABS: BASOPHILS % (AUTO) 0.1 % (0-1); EOSINOPHILS % (AUTO) 0 % (0-6); HEMATOCRIT 24.4 % (42.0-52.0); HEMOGLOBIN 8.2 g/dl (14.0-17.9); LYMPHOCYTES # (AUTO) 0.3 X10'3 (1.1-4.8); LYMPHOCYTES % (AUTO) 2.6 % (21-51); MEAN CORPUSCULAR HEMOGLOBIN 30.1 PG (27.0-31.0); MEAN CORPUSCULAR HGB CONC 33.7 g/dL (33.0-36.5); MEAN CORPUSCULAR VOLUME 89.3 FL (78-98); MEAN PLATELET VOLUME 7.9 FL (7.4-10.4); MONOCYTES # (AUTO) 0.8 X10'3 (0-0.9); MONOCYTES % (AUTO) 7.1 % (2-12); NEUTROPHILS # (AUTO) 10.3 X10'3 (1.8-7.7); NEUTROPHILS % (AUTO) 90.2 % (42-75); PLATELET COUNT 52 X10'3 (140-440); RED BLOOD COUNT 2.73 X10'6 (4.70-6.10); RED CELL DISTRIBUTION WIDTH 17.3 % (11.5-14.5); WHITE BLOOD COUNT 11.4 X10'3 (4.5-11.0)
[2019-01-26] MEDS: amiodarone 200mg tablet PO SCH (08:11)
[2019-01-26] MEDS: pantoprazole 40 MG vial IV SCH (08:11)
[2019-01-26] MEDS: rifaximin 550mg tablet PO SCH ×2 (08:11→20:21)
[2019-01-26] MEDS: ferrous sulfate 325mg tablet PO SCH ×3 (08:12→17:35)
[2019-01-26] MEDS: lactobacillus rhamnosus 10,000 MMU CELLS/CAPSULE PO SCH ×2 (08:12→20:21)
[2019-01-26 08:23] LABS: ALBUMIN 2.6 G/DL (3.4-5.0); BLOOD UREA NITROGEN 28 MG/DL (7-18); BUN/CREATININE RATIO 36.4 (5.4-32.0); CHLORIDE 107 MMOL/L (99-107); CREATININE 0.77 MG/DL (0.60-1.10); GLUCOSE 141 MG/DL (70-104); MAGNESIUM 1.7 MG/DL (1.5-2.4); POTASSIUM 4.1 MMOL/L (3.5-5.1); TOTAL CARBON DIOXIDE 30.7 MMOL/L (24-32); eGFR > 90 ML/MIN
[2019-01-26 08:25] LABS: ANION GAP 2 (8-16); SODIUM 140 MMOL/L (135-145)
[2019-01-26] MEDS: BICARB DIALYSIS W/CALCIUM SOL 5,000 ML HE SCH ×2 (08:29→08:30)
[2019-01-26 08:43] LABS: LARGE PLATELETS FEW; PLATELET ESTIMATE DECREASED
[2019-01-26] MEDS: magnesium 4gm in 100ml NS 100 ML IV PRN (09:18)
--- NOTE | 2019-01-26 11:24 | NUR ---
anchorer Daniel paged to notify there are 7hours left on the Dialysis filter. Will re-call him once filter times out. Patient resting comfortably, CVVH running.
[2019-01-26] MEDS: sodium phosphate inj. 30 MMOL in normal saline 250ml IV soln 250 ML IV PRN (12:11)
--- NOTE | 2019-01-26 14:00 | NUR ---
CVVH machine clotted which causes the Manjinder dialysis port to clot; Dr. Carbajal at bedside and ordered for the CVVH to be stopped. Okay per Dr. Carbajal to use CathFlo to regain access to the Manjinder port. Will resume intermittent hemodialysis as needed.
[2019-01-26] MEDS ORDERED: tPA-cathflo 2 MG/2 ml IV flush IVF STA (14:03)
[2019-01-26 14:09] LABS: BASOPHILS % (AUTO) 0.1 % (0-1); EOSINOPHILS % (AUTO) 0 % (0-6); HEMATOCRIT 23.8 % (42.0-52.0); HEMOGLOBIN 8.1 g/dl (14.0-17.9); LYMPHOCYTES # (AUTO) 0.3 X10'3 (1.1-4.8); LYMPHOCYTES % (AUTO) 2.5 % (21-51); MEAN CORPUSCULAR HEMOGLOBIN 30.3 PG (27.0-31.0); MEAN CORPUSCULAR HGB CONC 33.8 g/dL (33.0-36.5); MEAN CORPUSCULAR VOLUME 89.4 FL (78-98); MEAN PLATELET VOLUME 7.9 FL (7.4-10.4); NEUTROPHILS # (AUTO) 11.1 X10'3 (1.8-7.7); NEUTROPHILS % (AUTO) 89.4 % (42-75); PLATELET COUNT 55 X10'3 (140-440); RED BLOOD COUNT 2.67 X10'6 (4.70-6.10); RED CELL DISTRIBUTION WIDTH 17.6 % (11.5-14.5); WHITE BLOOD COUNT 12.4 X10'3 (4.5-11.0)
[2019-01-26 14:19] LABS: ALBUMIN 2.6 G/DL (3.4-5.0); ANION GAP 5 (8-16); BLOOD UREA NITROGEN 27 MG/DL (7-18); BUN/CREATININE RATIO 31.4 (5.4-32.0); CHLORIDE 107 MMOL/L (99-107); CREATININE 0.86 MG/DL (0.60-1.10); GLUCOSE 143 MG/DL (70-104); MAGNESIUM 2.5 MG/DL (1.5-2.4); PHOSPHORUS 2.6 MG/DL (2.3-4.5); SODIUM 141 MMOL/L (135-145); TOTAL CARBON DIOXIDE 29.1 MMOL/L (24-32); eGFR > 90 ML/MIN
[2019-01-26] MEDS ORDERED: heparin 1,000 units/ml 10ml inj HE ONE ×2 (15:05)
--- NOTE | 2019-01-26 18:28 | NUR ---
Problems reprioritized. Patient report given, questions answered & plan of care reviewed with Rachel CHESTER.
--- NOTE | 2019-01-26 18:30 | NUR ---
Patient in room ICU 2042. I have received report from Keegan CHESTER and had the opportunity to ask questions and assume patient care.
[2019-01-26] MEDS: insulin glargine (Lantus) pen - multi-dose SQ SCH (20:27)
[2019-01-27] VITALS (24 sets, daily range): BP systolic 88–116; BP diastolic 43–69
[2019-01-27] MEDS: midodrine 5mg tablet PO SCH ×3 (00:03→16:30)
[2019-01-27] MEDS: meropenem inj 1 GM in normal saline 100ml IV soln 100 ML IV SCH ×3 (00:03→16:31)
[2019-01-27] MEDS: gabapentin 300mg capsule PO SCH ×3 (00:04→16:31)
[2019-01-27] MEDS: HYDROmorphone/NS 1 mg/ml CADD 50 ML IV SCH ×12 (01:00→23:00)
[2019-01-27] MEDS: hydrocortisone sod succ/PF 100mg/2ml inj. IV SCH ×4 (02:13→21:09)
[2019-01-27] MEDS: lactulose 20gm/30ml cup PO SCH ×4 (02:13→21:09)
[2019-01-27] MEDS: insulin regular, human vial - multi-dose SQ SCH ×2 (02:15→21:14)
[2019-01-27 04:05] LABS: ABG BASE EXCESS -0.3 mmol/L (-2.0-3.0); ABG HCO3 23.8 mmol/L (22.0-26.0); ABG OXYGEN SATURATION 96.4 % (95-98); ABG PCO2 (T) 37.1 mmHg (35.0-48.0); ABG PH (T) 7.427 (7.350-7.450); ALLEN'S TEST Positive; FCOHb 0.1 % (0.5-1.5); FMetHb 0.3 % (0.3-1.12); MINUTE VOLUME 13 L/min; PATIENT TEMPERATURE 37.3; PEEP 5 cm H2O; RESPIRATORY RATE 0 b/min; RESPIRATORY RATE (OBSERVED) 15 b/min; TIDAL VOLUME 768 mL; TOTAL HEMOGLOBIN 8.9 G/dl (14.0-18.0)
[2019-01-27 04:49] LABS: BASOPHILS % (AUTO) 0.1 % (0-1); EOSINOPHILS % (AUTO) 0 % (0-6); HEMATOCRIT 24.1 % (42.0-52.0); HEMOGLOBIN 8.2 g/dl (14.0-17.9); LYMPHOCYTES # (AUTO) 0.3 X10'3 (1.1-4.8); LYMPHOCYTES % (AUTO) 3.1 % (21-51); MEAN CORPUSCULAR HEMOGLOBIN 30.6 PG (27.0-31.0); MEAN CORPUSCULAR HGB CONC 33.9 g/dL (33.0-36.5); MEAN CORPUSCULAR VOLUME 90.2 FL (78-98); MONOCYTES # (AUTO) 0.9 X10'3 (0-0.9); MONOCYTES % (AUTO) 7.8 % (2-12); NEUTROPHILS # (AUTO) 9.8 X10'3 (1.8-7.7); PLATELET COUNT 66 X10'3 (140-440); RED BLOOD COUNT 2.67 X10'6 (4.70-6.10); RED CELL DISTRIBUTION WIDTH 17.7 % (11.5-14.5)
[2019-01-27 04:57] LABS: ALBUMIN 2.5 G/DL (3.4-5.0); ALBUMIN/GLOBULIN RATIO 0.8 (1.1-1.5); ANION GAP 5 (8-16); ASPARTATE AMINO TRANSFERASE 912 U/L (10-37); BILIRUBIN,TOTAL 1.5 MG/DL (0.1-1.0); BLOOD UREA NITROGEN 44 MG/DL (7-18); BUN/CREATININE RATIO 33.6 (5.4-32.0); CALCIUM 8.5 MG/DL (8.5-10.1); CHLORIDE 107 MMOL/L (99-107); CREATININE 1.31 MG/DL (0.60-1.10); GLUCOSE 137 MG/DL (70-104); PHOSPHORUS 3.5 MG/DL (2.3-4.5); POTASSIUM 3.7 MMOL/L (3.5-5.1); SODIUM 141 MMOL/L (135-145); TOTAL PROTEIN 5.5 G/DL (6.4-8.2); eGFR 57 ML/MIN
[2019-01-27 04:58] LABS: ALANINE AMINOTRANSFERASE 690 U/L (12-78); ALKALINE PHOSPHATASE 429 IU/L (46-116)
--- NOTE | 2019-01-27 06:23 | NUR ---
Problems reprioritized. Patient report given, questions answered & plan of care reviewed with Kalpesh CHESTER.
--- NOTE | 2019-01-27 06:30 | NUR ---
Patient in room ICU 2042. I have received report from NEMO Ramos and had the opportunity to ask questions and assume patient care.
[2019-01-27 06:51] LABS: MAGNESIUM 2.2 MG/DL (1.5-2.4)
[2019-01-27] MEDS: docusate sodium 100mg/10ml UD cup PO SCH ×2 (08:00→21:10)
[2019-01-27] MEDS: pantoprazole 40 MG vial IV SCH (08:04)
[2019-01-27] MEDS: amiodarone 200mg tablet PO SCH (08:04)
[2019-01-27] MEDS: rifaximin 550mg tablet PO SCH ×2 (08:05→21:10)
[2019-01-27] MEDS: ferrous sulfate 325mg tablet PO SCH ×3 (08:05→21:09)
[2019-01-27] MEDS: lactobacillus rhamnosus 10,000 MMU CELLS/CAPSULE PO SCH ×2 (08:06→21:10)
--- NOTE | 2019-01-27 12:13 | NUR ---
reassessment: Pt tolerating TF at goal. CRRT down to try HD per MD note. Rectal tube 950ml output but receiving lactulose Q6 in addition to colace last night; held today. Increased output likely from meds and not TF intolerance since also on Fe. Neutral fluid balance past 24-48 hours per I&O. Will continue to monitor. Recommend: 1. continues tube feeding per OG tube using Vital High Protein at 90 ml/hr to provide total volume of 2160 ml, 2160 cals, 189 gm protein, and 1806 ml water. 2. Prealbumin Q monday and 3. daily weights 4. additional water flush per marking room supervisor 5. when extubated advance diet as medically indicated to heart healthy Addendum: 01/27/19 at [address] Amended: Links added.
--- NOTE | 2019-01-27 18:30 | NUR ---
Patient in room ICU 2042. I have received report from Kalpesh CHESTER and had the opportunity to ask questions and assume patient care.
--- NOTE | 2019-01-27 18:32 | NUR ---
Problems reprioritized. Patient report given, questions answered & plan of care reviewed with NEMO Ramos.
[2019-01-27] MEDS: NORepinephrine 8mg/ 250ml NS 250 ML IV SCH (19:20)
[2019-01-27] MEDS: insulin glargine (Lantus) pen - multi-dose SQ SCH (21:13)
[2019-01-28] VITALS (24 sets, daily range): BP systolic 89–118; BP diastolic 47–74
[2019-01-28] MEDS: gabapentin 300mg capsule PO SCH ×2 (00:04→08:30)
[2019-01-28] MEDS: meropenem inj 1 GM in normal saline 100ml IV soln 100 ML IV SCH ×2 (00:04→08:37)
[2019-01-28] MEDS: midodrine 5mg tablet PO SCH ×3 (00:04→16:00)
[2019-01-28] MEDS: HYDROmorphone/NS 1 mg/ml CADD 50 ML IV SCH ×5 (01:00→09:00)
[2019-01-28] MEDS: lactulose 20gm/30ml cup PO SCH ×4 (01:52→20:00)
[2019-01-28] MEDS: hydrocortisone sod succ/PF 100mg/2ml inj. IV SCH ×4 (01:52→20:19)
[2019-01-28] MEDS: insulin regular, human vial - multi-dose SQ SCH ×2 (02:03→10:48)
[2019-01-28 04:05] LABS: ABG BASE EXCESS -0.4 mmol/L (-2.0-3.0); ABG OXYGEN SATURATION 97.8 % (95-98); ABG PH (T) 7.409 (7.350-7.450); ABG PO2 (T) 113.1 mmHg (83-108); ALLEN'S TEST Positive; FCOHb 0.3 % (0.5-1.5); FMetHb 0.2 % (0.3-1.12); FO2Hb 97.3 % (94-100); MINUTE VOLUME 9 L/min; PATIENT TEMPERATURE 37.5; PEEP 5 cm H2O; RESPIRATORY RATE 0 b/min; RESPIRATORY RATE (OBSERVED) 8 b/min; TIDAL VOLUME 1089 mL; TOTAL HEMOGLOBIN 8.7 G/dl (14.0-18.0)
[2019-01-28 04:16] LABS: BASOPHILS % (AUTO) 0.2 % (0-1); EOSINOPHILS % (AUTO) 0 % (0-6); HEMATOCRIT 24.3 % (42.0-52.0); LYMPHOCYTES # (AUTO) 0.3 X10'3 (1.1-4.8); MEAN CORPUSCULAR HEMOGLOBIN 30.5 PG (27.0-31.0); MEAN CORPUSCULAR VOLUME 92.4 FL (78-98); MONOCYTES # (AUTO) 0.8 X10'3 (0-0.9); MONOCYTES % (AUTO) 7.5 % (2-12); NEUTROPHILS # (AUTO) 9.1 X10'3 (1.8-7.7); NEUTROPHILS % (AUTO) 89.3 % (42-75); PLATELET COUNT 78 X10'3 (140-440); RED BLOOD COUNT 2.63 X10'6 (4.70-6.10); RED CELL DISTRIBUTION WIDTH 18.9 % (11.5-14.5); WHITE BLOOD COUNT 10.2 X10'3 (4.5-11.0)
[2019-01-28 04:28] LABS: ALANINE AMINOTRANSFERASE 824 U/L (12-78); ALBUMIN 2.4 G/DL (3.4-5.0); ALBUMIN/GLOBULIN RATIO 0.8 (1.1-1.5); ALKALINE PHOSPHATASE 474 IU/L (46-116); ANION GAP 7 (8-16); ASPARTATE AMINO TRANSFERASE 759 U/L (10-37); BILIRUBIN,TOTAL 1.4 MG/DL (0.1-1.0); BLOOD UREA NITROGEN 66 MG/DL (7-18); BUN/CREATININE RATIO 34.6 (5.4-32.0); CALCIUM 8.5 MG/DL (8.5-10.1); CHLORIDE 108 MMOL/L (99-107); CREATININE 1.91 MG/DL (0.60-1.10); GLUCOSE 150 MG/DL (70-104); MAGNESIUM 2.4 MG/DL (1.5-2.4); PHOSPHORUS 4.7 MG/DL (2.3-4.5); POTASSIUM 3.8 MMOL/L (3.5-5.1); PREALBUMIN 16.1 MG/DL (19-36); SODIUM 141 MMOL/L (135-145); TOTAL CARBON DIOXIDE 26.1 MMOL/L (24-32); TOTAL PROTEIN 5.3 G/DL (6.4-8.2); eGFR 37 ML/MIN
[2019-01-28 05:14] LABS: ANISOCYTOSIS 2+; PLATELET ESTIMATE DECREASED; POLYCHROMASIA FEW
--- NOTE | 2019-01-28 06:14 | NUR ---
Problems reprioritized. Patient report given, questions answered & plan of care reviewed with Kalpesh CHESTER.
--- NOTE | 2019-01-28 06:30 | NUR ---
Patient in room ICU 2042. I have received report from NEMO Rmaos and had the opportunity to ask questions and assume patient care.
[2019-01-28] MEDS ORDERED: heparin 1,000 units/ml 10ml inj HE ONE ×2 (08:00)
[2019-01-28] MEDS ORDERED: normal saline 1000ml 250 ML IV PRN (08:00)
[2019-01-28] MEDS ORDERED: heparin 1,000unit/ml 10ml vial 10 ML IV ONE (08:00)
[2019-01-28] MEDS ORDERED: epoetin 20,000 units/ml inj IV ONE (08:00)
[2019-01-28] MEDS: lactobacillus rhamnosus 10,000 MMU CELLS/CAPSULE PO SCH ×2 (08:30→20:00)
[2019-01-28] MEDS: amiodarone 200mg tablet PO SCH (08:30)
[2019-01-28] MEDS: docusate sodium 100mg/10ml UD cup PO SCH ×2 (08:30→20:00)
[2019-01-28] MEDS: ferrous sulfate 325mg tablet PO SCH ×3 (08:30→17:30)
[2019-01-28] MEDS: pantoprazole 40 MG vial IV SCH (08:36)
[2019-01-28] MEDS: rifaximin 550mg tablet PO SCH ×2 (08:45→20:00)
[2019-01-28] MEDS: gabapentin 400mg capsule PO SCH (16:00)
--- NOTE | 2019-01-28 17:10 | NUR ---
HD run started.
--- NOTE | 2019-01-28 18:30 | NUR ---
Patient in room ICU 2042. I have received report from NEMO Posey and had the opportunity to ask questions and assume patient care.
--- NOTE | 2019-01-28 18:39 | NUR ---
Problems reprioritized. Patient report given, questions answered & plan of care reviewed with NEMO Queen.
[2019-01-28] MEDS ORDERED: insulin Lispro (HumaLOG) vial - multi-dose SQ SCH (20:38)
[2019-01-28] MEDS: insulin glargine (Lantus) pen - multi-dose SQ SCH (21:12)
[2019-01-29] VITALS (24 sets, daily range): BP systolic 91–116; BP diastolic 34–72
[2019-01-29] MEDS: lactulose 20gm/30ml cup PO SCH ×4 (02:00→19:41)
[2019-01-29] MEDS: hydrocortisone sod succ/PF 100mg/2ml inj. IV SCH ×4 (02:25→19:41)
[2019-01-29 02:55] LABS: BASOPHILS % (AUTO) 0.2 % (0-1); EOSINOPHILS % (AUTO) 0 % (0-6); HEMATOCRIT 27.3 % (42.0-52.0); LYMPHOCYTES # (AUTO) 0.5 X10'3 (1.1-4.8); LYMPHOCYTES % (AUTO) 4.5 % (21-51); MEAN CORPUSCULAR HEMOGLOBIN 30.5 PG (27.0-31.0); MEAN CORPUSCULAR VOLUME 92.3 FL (78-98); MEAN PLATELET VOLUME 7.9 FL (7.4-10.4); MONOCYTES % (AUTO) 8.1 % (2-12); NEUTROPHILS # (AUTO) 10.5 X10'3 (1.8-7.7); NEUTROPHILS % (AUTO) 87.2 % (42-75); PLATELET COUNT 82 X10'3 (140-440); RED BLOOD COUNT 2.96 X10'6 (4.70-6.10); WHITE BLOOD COUNT 12.1 X10'3 (4.5-11.0)
[2019-01-29 03:05] LABS: ALANINE AMINOTRANSFERASE 869 U/L (12-78); ALBUMIN 2.6 G/DL (3.4-5.0); ALBUMIN/GLOBULIN RATIO 0.8 (1.1-1.5); ALKALINE PHOSPHATASE 517 IU/L (46-116); ANION GAP 6 (8-16); ASPARTATE AMINO TRANSFERASE 495 U/L (10-37); BILIRUBIN,TOTAL 1.7 MG/DL (0.1-1.0); BLOOD UREA NITROGEN 45 MG/DL (7-18); BUN/CREATININE RATIO 32.1 (5.4-32.0); CALCIUM 8.5 MG/DL (8.5-10.1); CHLORIDE 104 MMOL/L (99-107); GLUCOSE 137 MG/DL (70-104); MAGNESIUM 2.1 MG/DL (1.5-2.4); PHOSPHORUS 4.3 MG/DL (2.3-4.5); POTASSIUM 3.7 MMOL/L (3.5-5.1); SODIUM 139 MMOL/L (135-145); TOTAL CARBON DIOXIDE 28.7 MMOL/L (24-32); TOTAL PROTEIN 5.7 G/DL (6.4-8.2); eGFR 52 ML/MIN
[2019-01-29 03:16] LABS: ANISOCYTOSIS 2+; HYPOCHROMASIA 1+; PLATELET ESTIMATE DECREASED
--- NOTE | 2019-01-29 06:20 | NUR ---
Problems reprioritized. Patient report given, questions answered & plan of care reviewed with NEMO Ruiz.
--- NOTE | 2019-01-29 06:27 | NUR ---
Patient in room ICU 2042. I have received report from Diana and had the opportunity to ask questions and assume patient care.
[2019-01-29] MEDS: docusate sodium 100mg/10ml UD cup PO SCH ×2 (08:00→19:41)
[2019-01-29] MEDS: lactobacillus rhamnosus 10,000 MMU CELLS/CAPSULE PO SCH ×2 (08:00→19:42)
[2019-01-29] MEDS: amiodarone 200mg tablet PO SCH ×2 (08:07→13:23)
[2019-01-29] MEDS: rifaximin 550mg tablet PO SCH ×3 (08:07→19:42)
[2019-01-29] MEDS: pantoprazole 40 MG vial IV SCH (08:07)
[2019-01-29] MEDS: meropenem inj 500 MG in normal saline 100ml IV soln 100 ML IV SCH (08:07)
[2019-01-29] MEDS: gabapentin 400mg capsule PO SCH ×4 (08:07→15:32)
[2019-01-29] MEDS: midodrine 5mg tablet PO SCH ×4 (08:07→15:32)
[2019-01-29] MEDS: ferrous sulfate 325mg tablet PO SCH ×4 (08:07→17:20)
[2019-01-29] MEDS ORDERED: HYDROmorphone 2mg/ml vial IV PRN (09:20)
--- NOTE | 2019-01-29 09:29 | NUR ---
0845-Dr Derrell payne- Diladid 0.5 mg q2 PRN pain, patient failed swallow eval, place corepak for nutritional needs and meds. Plan is for TDC today and possible paracentesis. Pt has a very weak cough, rhonchi in upper lobes. 0930 corpak placed to right nare at 70cm. Xray ordered for 11 am. Holding meds until placement verified.
[2019-01-29] MEDS ORDERED: HYDROmorphone 1 mg/ml syringe IV PRN (09:30)
--- NOTE | 2019-01-29 14:04 | NUR ---
reassessment: Patient was extubated yesterday , had BSS this morning and did not pass swallow eval, per SIDE GUIDER pt coughs after both food and liquids and need to be NPO with reassessment. Patient now has corpak, recommend to continue with Vital High Protein at 90 ml/hr to meet his needs. Any additional water flush per . Pt pending placement of TDC. Continues to receive lactulose and has rectal tube for liquid stools. S/p paracentesis with 12 liters removed, admitted as transfer from [facility] with acute respiratory failure, TUAN, LNYN, cirrhosis. Will continue to follow. Recommend: 1. continues tube feeding per OG tube using Vital High Protein at 90 ml/hr to provide total volume of 2160 ml, 2160 cals, 189 gm protein, and 1806 ml water. 2. Prealbumin Q monday and 3. daily weights 4. additional water flush per regulatory submissions associate 5. when extubated advance diet as medically indicated to heart healthy per SIDE GUIDER recs Addendum: 01/29/19 at [address] Amended: Links added.
[2019-01-29] MEDS: insulin regular, human vial - multi-dose SQ SCH ×2 (14:33→19:45)
--- NOTE | 2019-01-29 18:19 | NUR ---
Problems reprioritized. Patient report given, questions answered & plan of care reviewed with Diana.
--- NOTE | 2019-01-29 18:30 | NUR ---
Patient in room ICU 2042. I have received report from NEMO Ruiz and had the opportunity to ask questions and assume patient care.
[2019-01-29] MEDS: insulin glargine (Lantus) pen - multi-dose SQ SCH (21:19)
[2019-01-30] VITALS (21 sets, daily range): BP systolic 82–117; BP diastolic 44–76
[2019-01-30] MEDS: gabapentin 400mg capsule PO SCH ×3 (00:13→16:20)
[2019-01-30] MEDS: midodrine 5mg tablet PO SCH ×3 (00:13→16:20)
[2019-01-30] MEDS: hydrocortisone sod succ/PF 100mg/2ml inj. IV SCH (01:38)
[2019-01-30] MEDS: lactulose 20gm/30ml cup PO SCH ×4 (01:38→19:34)
[2019-01-30] MEDS: insulin regular, human vial - multi-dose SQ SCH ×2 (01:45→13:25)
[2019-01-30 03:30] LABS: BASOPHILS % (AUTO) 0.1 % (0-1); EOSINOPHILS % (AUTO) 0 % (0-6); HEMATOCRIT 26.9 % (42.0-52.0); HEMOGLOBIN 8.9 g/dl (14.0-17.9); LYMPHOCYTES # (AUTO) 0.4 X10'3 (1.1-4.8); LYMPHOCYTES % (AUTO) 4.5 % (21-51); MEAN CORPUSCULAR HEMOGLOBIN 30.9 PG (27.0-31.0); MEAN CORPUSCULAR HGB CONC 33.2 g/dL (33.0-36.5); MEAN CORPUSCULAR VOLUME 92.9 FL (78-98); MEAN PLATELET VOLUME 8.6 FL (7.4-10.4); MONOCYTES # (AUTO) 0.8 X10'3 (0-0.9); NEUTROPHILS # (AUTO) 8.5 X10'3 (1.8-7.7); NEUTROPHILS % (AUTO) 87.4 % (42-75); PLATELET COUNT 96 X10'3 (140-440); RED CELL DISTRIBUTION WIDTH 23.7 % (11.5-14.5); WHITE BLOOD COUNT 9.8 X10'3 (4.5-11.0)
[2019-01-30 03:35] LABS: ALANINE AMINOTRANSFERASE 582 U/L (12-78); ALBUMIN 2.3 G/DL (3.4-5.0); ALBUMIN/GLOBULIN RATIO 0.8 (1.1-1.5); ALKALINE PHOSPHATASE 461 IU/L (46-116); ANION GAP 10 (8-16); ASPARTATE AMINO TRANSFERASE 235 U/L (10-37); BILIRUBIN,TOTAL 1.5 MG/DL (0.1-1.0); BLOOD UREA NITROGEN 63 MG/DL (7-18); BUN/CREATININE RATIO 32.1 (5.4-32.0); CALCIUM 8.2 MG/DL (8.5-10.1); CHLORIDE 105 MMOL/L (99-107); CREATININE 1.96 MG/DL (0.60-1.10); GLUCOSE 166 MG/DL (70-104); MAGNESIUM 2.3 MG/DL (1.5-2.4); POTASSIUM 3.7 MMOL/L (3.5-5.1); SODIUM 140 MMOL/L (135-145); TOTAL CARBON DIOXIDE 24.6 MMOL/L (24-32); TOTAL PROTEIN 5.2 G/DL (6.4-8.2); eGFR 36 ML/MIN
[2019-01-30 04:38] LABS: ANISOCYTOSIS 3+; PLATELET ESTIMATE DECREASED
--- NOTE | 2019-01-30 06:20 | NUR ---
Problems reprioritized. Patient report given, questions answered & plan of care reviewed with NEMO Ruiz.
--- NOTE | 2019-01-30 06:45 | NUR ---
Patient in room ICU 2042. I have received report from Diana and had the opportunity to ask questions and assume patient care.
[2019-01-30] MEDS: docusate sodium 100mg/10ml UD cup PO SCH ×2 (08:00→19:34)
[2019-01-30] MEDS: lactobacillus rhamnosus 10,000 MMU CELLS/CAPSULE PO SCH ×2 (08:00→19:34)
[2019-01-30] MEDS: meropenem inj 500 MG in normal saline 100ml IV soln 100 ML IV SCH (08:00)
[2019-01-30] MEDS: rifaximin 550mg tablet PO SCH ×2 (08:00→19:34)
[2019-01-30] MEDS: pantoprazole 40 MG vial IV SCH (08:00)
[2019-01-30] MEDS: ferrous sulfate 325mg tablet PO SCH ×3 (08:30→17:54)
[2019-01-30] MEDS ORDERED: heparin 1,000unit/ml 10ml vial 10 ML IV ONE (08:54)
[2019-01-30] MEDS ORDERED: epoetin 20,000 units/ml inj IV ONE (08:55)
[2019-01-30] MEDS ORDERED: heparin 1,000 units/ml 10ml inj IV ONE (08:55)
[2019-01-30] MEDS ORDERED: albumin (Human) 5% 250ml 250 ML IV PRN (08:55)
[2019-01-30] MEDS ORDERED: heparin 1,000 units/ml 10ml inj HE ONE ×2 (09:00)
--- NOTE | 2019-01-30 09:31 | NUR ---
0830- Dr Dove here. plan is for TDC placement, paracentesis, dialysis and transfer to [facility]. FC to be dc'd before transfer. 0900 Rectal tube leaked- deflated, repositioned and reinflated. Pictures of wounds taken for discharge.
[2019-01-30] MEDS ORDERED: normal saline 1000ml 1,000 ML IV SCH (10:28)
[2019-01-30] MEDS ORDERED: fentaNYL/PF 50MCG/1 ML 2ML syringe IV PRN (10:30)
[2019-01-30] MEDS ORDERED: midazolam 2 mg/2 ml injection IV PRN (10:30)
[2019-01-30] MEDS ORDERED: LIDOcaine 1%/PF 5ML 10 MG/ML VIAL SQ ONE (10:30)
[2019-01-30] MEDS ORDERED: heparin 1,000 units/ml 10ml inj ICATH ONE (10:30)
[2019-01-30] MEDS ORDERED: heparin 1,000unit/ml 10ml vial 10 ML ONE (10:34)
[2019-01-30] MEDS ORDERED: fentaNYL/PF 50MCG/1 ML 2ML syringe ONE (10:34)
[2019-01-30] MEDS ORDERED: midazolam 2 mg/2 ml injection ONE (10:34)
[2019-01-30] MEDS ORDERED: LIDOcaine 1%/PF 5ML 10 MG/ML VIAL ONE (10:34)
--- NOTE | 2019-01-30 11:01 | NUR ---
1045- Pt to procedure for TDC and paracentesis. Plan from rounds is TDC, paracentesis, dialysis, then dc to [facility]. estimated time for transfer is 0.
--- NOTE | 2019-01-30 13:39 | NUR ---
1230- Patient back from procedure, tapped for 9100 cc, tap site rlq, dressing in place, shadow on dressing. TDC to right chest, cdi. 1300- Brother at bedside, possessions from safe returned to patient. Brother was asking about a wallet and pants, reviewed belonging on admission, no wallet or pants noted at that time, brother following up with [facility] regarding these items. I had patient on morning after transfer and no wallet or pants were in room at that time.
--- NOTE | 2019-01-30 18:30 | NUR ---
Patient in room ICU 2042. I have received report from NEMO Ruiz and had the opportunity to ask questions and assume patient care.
--- NOTE | 2019-01-30 18:32 | NUR ---
Problems reprioritized. Patient report given, questions answered & plan of care reviewed with Diana.
[2019-01-30] MEDS ORDERED: hydrocortisone sod succ/PF 100mg/2ml inj. IV SCH (20:00)
--- NOTE | 2019-01-30 20:08 | NUR ---
Patient report given to ENMO Bangura from [facility], questions answered & plan of care reviewed with her at this time. Patient is ready for transfer, awaiting transport.
--- NOTE | 2019-01-30 21:31 | NUR ---
Patient taken by [facility] at this time with all of his belongings to [employer].
== END 2019-01-30 21:30 | DRG 870 ==
LOC: ICU 2S 17:14
PROVIDERS: ADMIT Internal Medicine Critical Care Medicine; ATTEND Internal Medicine Critical Care Medicine
PROC: 5A1955Z Respiratory Ventilation, Greater than 96 Consecutive Hours (ICD-10-PCS; principal; 2019-01-16)
PROC: 5A1D90Z Performance of Urinary Filtration, Continuous, Greater than 18 hours Per Day (ICD-10-PCS; 2019-01-17)
PROC: 5A1D90Z Performance of Urinary Filtration, Continuous, Greater than 18 hours Per Day (ICD-10-PCS; 2019-01-19)
PROC: 5A1D90Z Performance of Urinary Filtration, Continuous, Greater than 18 hours Per Day (ICD-10-PCS; 2019-01-20)
PROC: 30233R1 Transfusion of Nonautologous Platelets into Peripheral Vein, Percutaneous Approach (ICD-10-PCS; 2019-01-21)
PROC: 5A1D90Z Performance of Urinary Filtration, Continuous, Greater than 18 hours Per Day (ICD-10-PCS; 2019-01-21)
PROC: 30233N1 Transfusion of Nonautologous Red Blood Cells into Peripheral Vein, Percutaneous Approach (ICD-10-PCS; 2019-01-22)
PROC: 5A1D90Z Performance of Urinary Filtration, Continuous, Greater than 18 hours Per Day (ICD-10-PCS; 2019-01-22)
PROC: 5A09357 Assistance with Respiratory Ventilation, Less than 24 Consecutive Hours, Continuous Positive Airway Pressure (ICD-10-PCS; 2019-01-23)
PROC: 30233N1 Transfusion of Nonautologous Red Blood Cells into Peripheral Vein, Percutaneous Approach (ICD-10-PCS; 2019-01-23)
PROC: 0W9G3ZX Drainage of Peritoneal Cavity, Percutaneous Approach, Diagnostic (ICD-10-PCS; 2019-01-23)
PROC: 30233N1 Transfusion of Nonautologous Red Blood Cells into Peripheral Vein, Percutaneous Approach (ICD-10-PCS; 2019-01-24)
PROC: 5A1D90Z Performance of Urinary Filtration, Continuous, Greater than 18 hours Per Day (ICD-10-PCS; 2019-01-24)
PROC: 02HV33Z Insertion of Infusion Device into Superior Vena Cava, Percutaneous Approach (ICD-10-PCS; 2019-01-24)
PROC: 4A02X4A Measurement of Cardiac Electrical Activity, Guidance, External Approach (ICD-10-PCS; 2019-01-24)
PROC: B548ZZA Ultrasonography of Superior Vena Cava, Guidance (ICD-10-PCS; 2019-01-24)
PROC: 5A1D70Z Performance of Urinary Filtration, Intermittent, Less than 6 Hours Per Day (ICD-10-PCS; 2019-01-28)
PROC: 0W9G3ZZ Drainage of Peritoneal Cavity, Percutaneous Approach (ICD-10-PCS; 2019-01-30)
PROC: 0JH63XZ Insertion of Tunneled Vascular Access Device into Chest Subcutaneous Tissue and Fascia, Percutaneous Approach (ICD-10-PCS; 2019-01-30)
PROC: 02H633Z Insertion of Infusion Device into Right Atrium, Percutaneous Approach (ICD-10-PCS; 2019-01-30)
PROC: B2141ZZ Fluoroscopy of Right Heart using Low Osmolar Contrast (ICD-10-PCS; 2019-01-30)
PROC: B548ZZA Ultrasonography of Superior Vena Cava, Guidance (ICD-10-PCS; 2019-01-30)
PROC: 5A1D70Z Performance of Urinary Filtration, Intermittent, Less than 6 Hours Per Day (ICD-10-PCS; 2019-01-30)
DX: A41.9 Sepsis, unspecified organism (principal); J18.1 Lobar pneumonia, unspecified organism; J96.01 Acute respiratory failure with hypoxia; R65.21 Severe sepsis with septic shock; N17.0 Acute kidney failure with tubular necrosis; E46 Unspecified protein-calorie malnutrition; I50.32 Chronic diastolic (congestive) heart failure; K76.6 Portal hypertension; E87.1 Hypo-osmolality and hyponatremia; R18.8 Other ascites; D63.1 Anemia in chronic kidney disease; B96.5 Pseudomonas (aeruginosa) (mallei) (pseudomallei) as the cause of diseases classified elsewhere; E11.22 Type 2 diabetes mellitus with diabetic chronic kidney disease; N18.3 Chronic kidney disease, stage 3 (moderate); E66.01 Morbid (severe) obesity due to excess calories; I48.91 Unspecified atrial fibrillation; K75.81 Nonalcoholic steatohepatitis (NASH); K74.69 Other cirrhosis of liver; R19.7 Diarrhea, unspecified; R34 Anuria and oliguria; Z86.14 Personal history of Methicillin resistant Staphylococcus aureus infection; Z68.36 Body mass index [BMI] 36.0-36.9, adult; Z79.899 Other long term (current) drug therapy
CPT/HCPCS: 36415; 36558; 36569; 36600; 49083; 71045; 74018; 76705; 76937; 77001; 80048; 80053; 80061; 80069; 80202; 81001; 82042; 82140; 82150; 82330; 82803; 82948; 83036; 83605; 83615; 83690; 83735; 83880; 84100; 84134; 84145; 84300; 84443; 84484; 85018; 85025; 85027; 85610; 85730; 86885; 86900; 86901; 86920; 87070; 87075; 87077; 87088; 87102; 87186; 89051; 90935; 92508; 92616; 93005; 93306; 94002; 94003; 94640; 94660; 94760; 97110; 97162; 97530; 97535; A9270; C1750; C1894; C9113; G0257; G0378; J0282; J0692; J0885; J1170; J1644; J1720; J1815; J1940; J2001; J2020; J2185; J2250; J2270; J2543; J2704; J2997; J3010; J3370; J3475; J3480; J3490; J7030; J7614; P9016; P9035; P9045; P9047

== ENCOUNTER 2019-02-08 16:47 | Emergency (ER) | payer BC ==
[~2019-02-08] VITALS: Ht 182.9 cm; Wt 113.6 kg
[~2019-02-08 16:47] MED LIST: ALBU8.5H8 INH; FERR324T4 PO; FURO-149 PO; GABA600T13 PO; METF-438 PO; NALO25TA PO; OXYC5CAP19 PO; PIOG30TA71 PO; POTA-82 PO; SPIR25TA5 PO
[2019-02-08 17:36] LABS: BASOPHILS # (AUTO) 0.1 X10'3 (0-0.2); BASOPHILS % (AUTO) 0.4 % (0-1); EOSINOPHILS % (AUTO) 0 % (0-6); HEMATOCRIT 33.1 % (42.0-52.0); HEMOGLOBIN 10.6 g/dl (14.0-17.9); LYMPHOCYTES # (AUTO) 0.4 X10'3 (1.1-4.8); LYMPHOCYTES % (AUTO) 1.5 % (21-51); MEAN CORPUSCULAR HEMOGLOBIN 29.1 PG (27.0-31.0); MEAN CORPUSCULAR HGB CONC 32.1 g/dL (33.0-36.5); MEAN CORPUSCULAR VOLUME 90.7 FL (78-98); MONOCYTES # (AUTO) 1.5 X10'3 (0-0.9); MONOCYTES % (AUTO) 6.3 % (2-12); NEUTROPHILS # (AUTO) 21.1 X10'3 (1.8-7.7); NEUTROPHILS % (AUTO) 91.8 % (42-75); PLATELET COUNT 187 X10'3 (140-440); RED BLOOD COUNT 3.65 X10'6 (4.70-6.10); RED CELL DISTRIBUTION WIDTH 20.2 % (11.5-14.5)
[2019-02-08 17:43] LABS: CLARITY,URINE TURBID (Clear); COLOR,URINE YELLOW (Yellow); GLUCOSE, URINE NEGATIVE (Neg); KETONES,URINE NEGATIVE (Neg); LEUKOCYTE ESTERASE ,URINE LARGE (Neg); OCCULT BLOOD,URINE LARGE (Neg); PH,URINE 5.5 (4.8-8.0); PROTEIN,URINE 100 mg/dl (Neg); UROBILINOGEN,URINE 0.2 E.U/dL (0.2-1.0)
[2019-02-08 17:48] LABS: ALANINE AMINOTRANSFERASE 261 U/L (12-78); ALBUMIN 2.6 G/DL (3.4-5.0); ALBUMIN/GLOBULIN RATIO 0.7 (1.1-1.5); ALKALINE PHOSPHATASE 710 IU/L (46-116); ANION GAP 10 (8-16); ASPARTATE AMINO TRANSFERASE 227 U/L (10-37); BILIRUBIN,TOTAL 1.7 MG/DL (0.1-1.0); BLOOD UREA NITROGEN 45 MG/DL (7-18); BUN/CREATININE RATIO 21.7 (5.4-32.0); CALCIUM 9.3 MG/DL (8.5-10.1); CHLORIDE 100 MMOL/L (99-107); CREATININE 2.07 MG/DL (0.60-1.10); GLUCOSE 137 MG/DL (70-104); MAGNESIUM 2.3 MG/DL (1.5-2.4); PARTIAL THROMBOPLASTIN TIME 26 SECONDS (22-32); SODIUM 139 MMOL/L (135-145); TOTAL CARBON DIOXIDE 28.7 MMOL/L (24-32); TOTAL PROTEIN 6.4 G/DL (6.4-8.2); eGFR 33 ML/MIN
[2019-02-08 17:49] LABS: UA COLLECTION TYPE STRAIGHT CATH
[2019-02-08 17:51] LABS: NITRITES, URINE NEGATIVE (Neg)
[2019-02-08 18:11] LABS: SQUAMOUS EPITHELIAL CELL,UR NONE SEEN /LPF (FEW); WBC,URINE TNTC /HPF (0-4)
[2019-02-08 18:12] LABS: YEAST MANY /HPF (NEGATIVE)
[2019-02-08 18:14] LABS: RBC,URINE 20-50 /HPF (0-2); TRANSITIONAL EPI CELLS,URINE FEW /HPF
[2019-02-08 18:15] LABS: BACTERIA,URINE 2+ /HPF (Neg)
[2019-02-08] MEDS ORDERED: vancomycin/NS 1 GM ADD-VANTAGE 250 ML IV ONE (18:40)
[2019-02-08] MEDS ORDERED: piperacillin/tazo 3.375gm/50ml 50 ML IV ONE (18:40)
--- NOTE | 2019-02-08 19:07 | NUR ---
SPOKE TO DR RASCON RE: CHEST XRAY REPORT, VERIFIED PLACEMENT OF PICC LINE, SHE SAYS OK TO USE
[2019-02-08 19:14] LABS: TOTAL CELLS COUNTED 100
[2019-02-08 19:15] LABS: PLATELET ESTIMATE NORMAL
[2019-02-08 19:17] LABS: ANISOCYTOSIS 3+
--- NOTE | 2019-02-08 19:23 | NUR ---
FLUSHED ALL THREE PORTS ON PICC LINE, ALL THREE FUNCTION
--- NOTE | 2019-02-08 21:08 | NUR ---
turned pt on his right side
[2019-02-08 21:20] LABS: ABG BASE EXCESS 3.7 mmol/L (-2.0-3.0); ABG HCO3 27.4 mmol/L (22.0-26.0); ABG OXYGEN SATURATION 88.7 % (95-98); ABG PCO2 (T) 38.4 mmHg (35.0-48.0); ABG PH (T) 7.472 (7.350-7.450); ABG PO2 (T) 57.5 mmHg (83-108); ALLEN'S TEST Positive; FCOHb 0.6 % (0.5-1.5); FMetHb 0.1 % (0.3-1.12); FO2Hb 88.1 % (94-100); PATIENT TEMPERATURE 37.1; TOTAL HEMOGLOBIN 11.1 G/dl (14.0-18.0)
[2019-02-08 22:52] VITALS: BP 143/80
[2019-02-09] MEDS ORDERED: DOCU50LI22 PO (15:29)
[2019-02-09] MEDS ORDERED: AMIO200T40 PO (15:29)
[2019-02-09] MEDS ORDERED: MIDO2.5T14 PO (15:29)
[2019-02-09] MEDS ORDERED: PANT40VI2 IV (15:29)
[2019-02-09] MEDS ORDERED: RIFA550T PO (15:29)
[2019-02-09] MEDS ORDERED: VANC1VIA21 IV (15:29)
[2019-02-09] MEDS ORDERED: FERR300S PO (15:29)
[2019-02-09] MEDS ORDERED: GABA-530 PO (15:29)
[2019-02-09] MEDS ORDERED: PIPE2.258 IV (15:29)
== END 2019-02-08 22:55 ==
LOC: ER 16:49
DX: N39.0 Urinary tract infection, site not specified (principal); N18.6 End stage renal disease; K74.60 Unspecified cirrhosis of liver; R09.89 Other specified symptoms and signs involving the circulatory and respiratory systems; J45.909 Unspecified asthma, uncomplicated; Z99.2 Dependence on renal dialysis; Z91.018 Allergy to other foods; Z79.84 Long term (current) use of oral hypoglycemic drugs; Z79.899 Other long term (current) drug therapy
CPT/HCPCS: 36415; 36600; 71045; 80053; 81001; 82803; 83605; 83735; 84145; 85018; 85025; 85610; 85730; 87040; 87088; 93005; 96365; 96366; 96368; 99291; J2543; J3370; 99284

== ENCOUNTER 2019-02-09 12:55 | Inpatient (IN) | payer BC ==
[~2019-02-09] VITALS: Ht 190.5 cm; Wt 128.2 kg
[~2019-02-09 12:55] MED LIST changes: +etomidate 2mg/ml inj. ONE
[2019-02-09 13:33] LABS: BASOPHILS % (AUTO) 0.1 % (0-1); EOSINOPHILS % (AUTO) 0 % (0-6); HEMATOCRIT 32.1 % (42.0-52.0); HEMOGLOBIN 10.3 g/dl (14.0-17.9); LYMPHOCYTES # (AUTO) 0.3 X10'3 (1.1-4.8); LYMPHOCYTES % (AUTO) 0.9 % (21-51); MEAN CORPUSCULAR HEMOGLOBIN 28.8 PG (27.0-31.0); MEAN PLATELET VOLUME 8.7 FL (7.4-10.4); MONOCYTES # (AUTO) 1.7 X10'3 (0-0.9); MONOCYTES % (AUTO) 4.4 % (2-12); NEUTROPHILS # (AUTO) 36.2 X10'3 (1.8-7.7); NEUTROPHILS % (AUTO) 94.6 % (42-75); PLATELET COUNT 184 X10'3 (140-440); RED BLOOD COUNT 3.56 X10'6 (4.70-6.10); RED CELL DISTRIBUTION WIDTH 20.6 % (11.5-14.5)
[2019-02-09 13:39] LABS: PARTIAL THROMBOPLASTIN TIME 33 SECONDS (22-32); WHITE BLOOD COUNT 38.3 X10'3 (4.5-11.0)
[2019-02-09 14:00] LABS: ALANINE AMINOTRANSFERASE 186 U/L (12-78); ALBUMIN 2.2 G/DL (3.4-5.0); ALBUMIN/GLOBULIN RATIO 0.6 (1.1-1.5); ALKALINE PHOSPHATASE 630 IU/L (46-116); ANION GAP 13 (8-16); ASPARTATE AMINO TRANSFERASE 118 U/L (10-37); BILIRUBIN,TOTAL 1.3 MG/DL (0.1-1.0); BLOOD UREA NITROGEN 68 MG/DL (7-18); BUN/CREATININE RATIO 24.2 (5.4-32.0); CALCIUM 9.4 MG/DL (8.5-10.1); CHLORIDE 99 MMOL/L (99-107); CREATININE 2.81 MG/DL (0.60-1.10); GLUCOSE 168 MG/DL (70-104); MAGNESIUM 2.4 MG/DL (1.5-2.4); SODIUM 138 MMOL/L (135-145); TOTAL CARBON DIOXIDE 26.2 MMOL/L (24-32); TOTAL PROTEIN 6.2 G/DL (6.4-8.2); eGFR 23 ML/MIN
[2019-02-09 14:36] LABS: TOTAL CELLS COUNTED 100
[2019-02-09 14:38] LABS: PLATELET ESTIMATE NORMAL
[2019-02-09 14:39] LABS: ANISOCYTOSIS 3+; STOMATOCYTES 1+; TOXIC VACUOLATION FEW
[2019-02-09 15:24] LABS: CLARITY,URINE CLEAR (Clear); COLOR,URINE STRAW (Yellow); GLUCOSE, URINE NEGATIVE (Neg); KETONES,URINE NEGATIVE (Neg); LEUKOCYTE ESTERASE ,URINE LARGE (Neg); NITRITES, URINE NEGATIVE (Neg); OCCULT BLOOD,URINE LARGE (Neg); PROTEIN,URINE NEGATIVE (Neg); UA COLLECTION TYPE STRAIGHT CATH; UROBILINOGEN,URINE 0.2 E.U/dL (0.2-1.0)
[2019-02-09] MEDS ORDERED: GABA-530 PO (15:29)
[2019-02-09] MEDS ORDERED: FERR300S PO (15:29)
[2019-02-09] MEDS ORDERED: DOCU50LI22 PO (15:29)
[2019-02-09] MEDS ORDERED: PANT40VI2 IV (15:29)
[2019-02-09] MEDS ORDERED: MIDO2.5T14 PO (15:29)
[2019-02-09] MEDS ORDERED: AMIO200T40 PO (15:29)
[2019-02-09] MEDS ORDERED: VANC1VIA21 IV (15:29)
[2019-02-09] MEDS ORDERED: RIFA550T PO (15:29)
[2019-02-09] MEDS ORDERED: PIPE2.258 IV (15:29)
[2019-02-09 15:38] LABS: BACTERIA,URINE FEW /HPF (Neg); MUCUS STRANDS FEW /LPF (Neg); RBC,URINE 0-2 /HPF (0-2); SQUAMOUS EPITHELIAL CELL,UR NONE SEEN /LPF (FEW)
[2019-02-09 16:12] LABS: VANCOMYCIN,RANDOM 18.9 UG/ML
[2019-02-09] MEDS ORDERED: non-formulary drug (Albuterol Sulfate (Proair Hfa) 2 PUFFS) INH PRN (17:15)
[2019-02-09] MEDS ORDERED: pantoprazole 40 MG/NS 100ML add-vantage BAG IV SCH (17:15)
[2019-02-09 18:00] VITALS: BP 93/57
[2019-02-09] MEDS ORDERED: oxyCODONE SR 10mg (sust. release) tab PO PRN (18:30)
--- NOTE | 2019-02-09 18:30 | NUR ---
Patient in room CICU 2010. I have received report from NEMO Allison and had the opportunity to ask questions and assume patient care.
--- NOTE | 2019-02-09 18:32 | NUR ---
Pt arrived to floor at 1740 from ED, transferred to hospital bed, and placed on bedside monitor; isolation for contact (VRE hx) and droplet (Pseudomonas in sputum) per ED. Patient placed on 4L oxygen nasal cannula with o2 saturations in the low 90s. Two RN skin check performed with Rebecca CHESTER and noted to have open area on sacrum, reddness in groin, right lateral calf wound, and abd wound with dressing. (Noc RN to take pictures and place in chart). Rectal tube care performed as the tube had been leaking; placed to gravity drainage. Patient alert to self but is hoarse; able to nod/shake head appropriately to questions. Pt with some shortness of breath and nausea; declining zofran for nausea at this time. Breath sounds clear but diminished. Abd large and tender. Report given to Michela CHESTER with all questions answered.
[2019-02-09 19:00] VITALS: BP 101/63
[2019-02-09] MEDS ORDERED: NORMAL SALINE IV SCH (19:00)
[2019-02-09] MEDS ORDERED: ERTAPENEM SOD IV SCH (19:00)
[2019-02-09] MEDS: meropenem inj 500 MG in normal saline 100ml IV soln 100 ML IV SCH (19:13)
--- NOTE | 2019-02-09 19:47 | NUR ---
corpak placement checked w/JOHN; ok to feed; verified w/L.Brent Hatch RN
--- NOTE | 2019-02-09 19:48 | NUR ---
Corpak placement checked w/JOHN; ok to feed; verified w/D. NEMO Verdugo
[2019-02-09 20:00] VITALS: BP 102/66
[2019-02-09] MEDS: rifaximin 550mg tablet PO SCH (20:39)
[2019-02-09] MEDS: docusate sodium 100mg/10ml UD cup PO SCH (20:39)
[2019-02-09] MEDS ORDERED: FERROUS SULFATE PO SCH (21:00)
[2019-02-09 21:28] VITALS: BP 98/54
[2019-02-09 22:00] VITALS: BP 89/51
[2019-02-09 23:00] VITALS: BP 97/58
[2019-02-10] VITALS (24 sets, daily range): BP systolic 96–116; BP diastolic 56–72
[2019-02-10] MEDS ORDERED: MIDODRINE HCL PO SCH
[2019-02-10] MEDS: gabapentin 100mg capsule PO SCH ×3 (00:04→16:59)
[2019-02-10] MEDS: midodrine 5mg tablet PO SCH ×3 (00:04→16:59)
[2019-02-10 02:35] LABS: BASOPHILS # (AUTO) 0.1 X10'3 (0-0.2); BASOPHILS % (AUTO) 0.3 % (0-1); EOSINOPHILS % (AUTO) 0 % (0-6); LYMPHOCYTES # (AUTO) 0.5 X10'3 (1.1-4.8); LYMPHOCYTES % (AUTO) 1.2 % (21-51); MEAN CORPUSCULAR HEMOGLOBIN 28.9 PG (27.0-31.0); MEAN CORPUSCULAR HGB CONC 32.3 g/dL (33.0-36.5); MEAN CORPUSCULAR VOLUME 89.5 FL (78-98); MEAN PLATELET VOLUME 8.9 FL (7.4-10.4); MONOCYTES # (AUTO) 1.5 X10'3 (0-0.9); MONOCYTES % (AUTO) 3.7 % (2-12); NEUTROPHILS # (AUTO) 38.9 X10'3 (1.8-7.7); NEUTROPHILS % (AUTO) 94.8 % (42-75); PLATELET COUNT 181 X10'3 (140-440); RED BLOOD COUNT 3.46 X10'6 (4.70-6.10); RED CELL DISTRIBUTION WIDTH 20.1 % (11.5-14.5)
[2019-02-10 02:39] LABS: PARTIAL THROMBOPLASTIN TIME 34 SECONDS (22-32)
[2019-02-10 02:41] LABS: ALANINE AMINOTRANSFERASE 162 U/L (12-78); ALBUMIN/GLOBULIN RATIO 0.5 (1.1-1.5); ALKALINE PHOSPHATASE 592 IU/L (46-116); ANION GAP 12 (8-16); ASPARTATE AMINO TRANSFERASE 109 U/L (10-37); BILIRUBIN,TOTAL 1.3 MG/DL (0.1-1.0); BLOOD UREA NITROGEN 80 MG/DL (7-18); BUN/CREATININE RATIO 25.4 (5.4-32.0); CALCIUM 9.1 MG/DL (8.5-10.1); CHLORIDE 99 MMOL/L (99-107); CREATININE 3.15 MG/DL (0.60-1.10); GLUCOSE 154 MG/DL (70-104); MAGNESIUM 2.5 MG/DL (1.5-2.4); POTASSIUM 3.7 MMOL/L (3.5-5.1); SODIUM 136 MMOL/L (135-145); TOTAL CARBON DIOXIDE 25.1 MMOL/L (24-32); eGFR 21 ML/MIN
[2019-02-10 03:48] LABS: ANISOCYTOSIS 3+; PLATELET ESTIMATE NORMAL; TOTAL CELLS COUNTED 100
--- NOTE | 2019-02-10 06:15 | NUR ---
Problems reprioritized. Patient report given, questions answered & plan of care reviewed with NEMO Tamez.
--- NOTE | 2019-02-10 06:30 | NUR ---
Patient in room CICU 2010. I have received report from NEMO Abernathy and had the opportunity to ask questions and assume patient care.
[2019-02-10] MEDS: docusate sodium 100mg/10ml UD cup PO SCH ×2 (08:00→19:13)
[2019-02-10] MEDS: ferrous sulfate 300mg/5ml UD oral liquid PO SCH ×3 (09:59→16:59)
[2019-02-10] MEDS: amiodarone 200mg tablet PO SCH (09:59)
[2019-02-10] MEDS: rifaximin 550mg tablet PO SCH ×2 (10:00→19:13)
[2019-02-10] MEDS: ESOMEPRAZOLE 40 MG VIAL IV SCH (10:00)
--- NOTE | 2019-02-10 12:18 | NUR ---
TF Consult: NGTF to start today per MD. Pt admit w/ PNA possible sepsis, and CHF EF 65%. Hx T2DM A1C <7. Pt remains SOB and not intubated at this time. High protein needs w/ HD, DX, and CHF hx as well as LYNN ascites recs below. Per CT large ascites and cirrhosis noted. Pt was previously receiving Nepro at 25ml/hr prior to TF consult w/ liquid stools via rectal tube documented however volume not noted. Pt did receive colace once 02/09 now held and likely combination of this w/ high fat renal formula; c.diff negative. Will monitor for TF tolerance. Rec: 1. NGTF using Vital High Protein at 90ml/hr goal; to provide 2160ml fluid, 2160kcals, 1750ml free water, and 189g protein. Initiate at 30ml/hr and advance 20ml Q8 to goal as tolerated. 2. water flush per high risk ob; Na 136 on HD 3. prealbumin Q /, daily wts 4. routine bowel care 5. Advance diet per MD to heart healthy/carb controlled once medically indicated Addendum: 02/10/19 at [address] Amended: Links added.
--- NOTE | 2019-02-10 18:25 | NUR ---
Problems reprioritized. Patient report given, questions answered & plan of care reviewed with NEMO Abernathy.
--- NOTE | 2019-02-10 18:37 | NUR ---
Patient in room CICU 2010. I have received report from NEMO Tamez and had the opportunity to ask questions and assume patient care.
[2019-02-10] MEDS: meropenem inj 500 MG in normal saline 100ml IV soln 100 ML IV SCH (19:13)
[2019-02-10] MEDS: albuterol 2.5 MG/3 ML nebule NEB PRN ×2 (19:48→23:48)
[2019-02-11] VITALS (19 sets, daily range): BP systolic 88–117; BP diastolic 49–74
[2019-02-11] MEDS: gabapentin 100mg capsule PO SCH ×3 (00:52→16:16)
[2019-02-11] MEDS: midodrine 5mg tablet PO SCH ×3 (00:52→16:16)
[2019-02-11 02:28] LABS: BASOPHILS # (AUTO) 0.1 X10'3 (0-0.2); BASOPHILS % (AUTO) 0.3 % (0-1); EOSINOPHILS % (AUTO) 0 % (0-6); HEMATOCRIT 29.7 % (42.0-52.0); HEMOGLOBIN 9.4 g/dl (14.0-17.9); LYMPHOCYTES # (AUTO) 0.4 X10'3 (1.1-4.8); LYMPHOCYTES % (AUTO) 0.9 % (21-51); MEAN CORPUSCULAR HEMOGLOBIN 28.6 PG (27.0-31.0); MEAN CORPUSCULAR HGB CONC 31.6 g/dL (33.0-36.5); MEAN CORPUSCULAR VOLUME 90.4 FL (78-98); MEAN PLATELET VOLUME 8.8 FL (7.4-10.4); MONOCYTES # (AUTO) 1.3 X10'3 (0-0.9); NEUTROPHILS % (AUTO) 95.8 % (42-75); PLATELET COUNT 175 X10'3 (140-440); RED BLOOD COUNT 3.28 X10'6 (4.70-6.10); RED CELL DISTRIBUTION WIDTH 20.3 % (11.5-14.5)
[2019-02-11 02:30] LABS: PARTIAL THROMBOPLASTIN TIME 33 SECONDS (22-32)
[2019-02-11 02:31] LABS: ALANINE AMINOTRANSFERASE 242 U/L (12-78); ALBUMIN 1.8 G/DL (3.4-5.0); ALBUMIN/GLOBULIN RATIO 0.4 (1.1-1.5); ALKALINE PHOSPHATASE 661 IU/L (46-116); ANION GAP 16 (8-16); ASPARTATE AMINO TRANSFERASE 290 U/L (10-37); BILIRUBIN,TOTAL 1.2 MG/DL (0.1-1.0); BLOOD UREA NITROGEN 100 MG/DL (7-18); BUN/CREATININE RATIO 26.7 (5.4-32.0); CALCIUM 8.8 MG/DL (8.5-10.1); CHLORIDE 97 MMOL/L (99-107); CREATININE 3.74 MG/DL (0.60-1.10); GLUCOSE 134 MG/DL (70-104); MAGNESIUM 2.5 MG/DL (1.5-2.4); POTASSIUM 4.2 MMOL/L (3.5-5.1); PREALBUMIN 7.4 MG/DL (19-36); SODIUM 137 MMOL/L (135-145); TOTAL CARBON DIOXIDE 23.6 MMOL/L (24-32); TOTAL PROTEIN 5.9 G/DL (6.4-8.2); eGFR 17 ML/MIN
[2019-02-11 02:37] LABS: WHITE BLOOD COUNT 42.8 X10'3 (4.5-11.0)
--- NOTE | 2019-02-11 06:19 | NUR ---
Problems reprioritized. Patient report given, questions answered & plan of care reviewed with NEMO Solis.
[2019-02-11 07:29] LABS: TOTAL CELLS COUNTED 100
[2019-02-11 07:30] LABS: ANISOCYTOSIS 3+; HYPOCHROMASIA 1+; PLATELET ESTIMATE NORMAL; POIKILOCYTOSIS 1+; POLYCHROMASIA 1+; TOXIC GRANULATION 1+
--- NOTE | 2019-02-11 07:30 | NUR ---
Droplet precautions dc'd per Dr Jordan when rounding. Contact precautions maintained.
[2019-02-11] MEDS: docusate sodium 100mg/10ml UD cup PO SCH ×2 (08:00→20:00)
[2019-02-11] MEDS: amiodarone 200mg tablet PO SCH (08:25)
[2019-02-11] MEDS: ferrous sulfate 300mg/5ml UD oral liquid PO SCH ×3 (08:25→16:16)
[2019-02-11] MEDS: ESOMEPRAZOLE 40 MG VIAL IV SCH (08:25)
[2019-02-11] MEDS: rifaximin 550mg tablet PO SCH ×2 (08:26→21:15)
--- NOTE | 2019-02-11 08:45 | NUR ---
Tube feeding Vital HP increased to goal at 90 ml/hr
[2019-02-11] MEDS ORDERED: normal saline 1000ml 100 ML IV PRN (09:14)
[2019-02-11] MEDS ORDERED: heparin 1,000unit/ml 10ml vial 10 ML IV ONE (09:14)
[2019-02-11] MEDS ORDERED: normal saline 1000ml 250 ML IV PRN (09:14)
[2019-02-11] MEDS ORDERED: epoetin 20,000 units/ml inj IV ONE (09:15)
[2019-02-11] MEDS ORDERED: heparin 1,000 units/ml 10ml inj HE ONE ×2 (09:20)
[2019-02-11] MEDS: ciprofloxacin lact 400MG/200ML 200 ML IV SCH (09:55)
[2019-02-11] MEDS: albuterol 2.5 MG/3 ML nebule NEB PRN (17:46)
--- NOTE | 2019-02-11 18:30 | NUR ---
Patient in room CICU 2010. I have received report from NEMO Rabago and had the opportunity to ask questions and assume patient care.
[2019-02-12] VITALS (25 sets, daily range): BP systolic 87–115; BP diastolic 42–65
[2019-02-12] MEDS: midodrine 5mg tablet PO SCH ×3 (00:15→16:39)
[2019-02-12] MEDS: ondansetron/PF 4mg/2ml inj IV PRN (01:40)
[2019-02-12 02:50] LABS: BASOPHILS % (AUTO) 0.1 % (0-1); EOSINOPHILS % (AUTO) 0 % (0-6); HEMATOCRIT 28.1 % (42.0-52.0); HEMOGLOBIN 9.3 g/dl (14.0-17.9); LYMPHOCYTES # (AUTO) 0.4 X10'3 (1.1-4.8); LYMPHOCYTES % (AUTO) 1.5 % (21-51); MEAN CORPUSCULAR HEMOGLOBIN 29.2 PG (27.0-31.0); MEAN CORPUSCULAR VOLUME 88.3 FL (78-98); MEAN PLATELET VOLUME 8.4 FL (7.4-10.4); MONOCYTES # (AUTO) 1.3 X10'3 (0-0.9); MONOCYTES % (AUTO) 4.8 % (2-12); NEUTROPHILS # (AUTO) 25.3 X10'3 (1.8-7.7); NEUTROPHILS % (AUTO) 93.6 % (42-75); PLATELET COUNT 143 X10'3 (140-440); RED BLOOD COUNT 3.18 X10'6 (4.70-6.10); RED CELL DISTRIBUTION WIDTH 20.2 % (11.5-14.5)
[2019-02-12 02:56] LABS: WHITE BLOOD COUNT 27.1 X10'3 (4.5-11.0)
[2019-02-12 03:05] LABS: PARTIAL THROMBOPLASTIN TIME 33 SECONDS (22-32)
[2019-02-12 03:10] LABS: ALANINE AMINOTRANSFERASE 301 U/L (12-78); ALBUMIN 1.7 G/DL (3.4-5.0); ALBUMIN/GLOBULIN RATIO 0.4 (1.1-1.5); ALKALINE PHOSPHATASE 802 IU/L (46-116); ANION GAP 10 (8-16); ASPARTATE AMINO TRANSFERASE 415 U/L (10-37); BLOOD UREA NITROGEN 53 MG/DL (7-18); BUN/CREATININE RATIO 25.2 (5.4-32.0); CALCIUM 8.5 MG/DL (8.5-10.1); CHLORIDE 99 MMOL/L (99-107); GLUCOSE 145 MG/DL (70-104); MAGNESIUM 2.1 MG/DL (1.5-2.4); POTASSIUM 3.7 MMOL/L (3.5-5.1); SODIUM 137 MMOL/L (135-145); TOTAL CARBON DIOXIDE 28.1 MMOL/L (24-32); TOTAL PROTEIN 5.9 G/DL (6.4-8.2); eGFR 33 ML/MIN
[2019-02-12 03:49] LABS: TOTAL CELLS COUNTED 100
[2019-02-12 03:50] LABS: ANISOCYTOSIS 3+; HYPOCHROMASIA 1+; PLATELET ESTIMATE NORMAL
--- NOTE | 2019-02-12 06:19 | NUR ---
Problems reprioritized. Patient report given, questions answered & plan of care reviewed with NEMO Ruiz.
--- NOTE | 2019-02-12 06:47 | NUR ---
Patient in room CICU 2010. I have received report from Michela and had the opportunity to ask questions and assume patient care.
[2019-02-12] MEDS: docusate sodium 100mg/10ml UD cup PO SCH ×2 (08:00→19:34)
[2019-02-12] MEDS: ciprofloxacin lact 400MG/200ML 200 ML IV SCH (09:22)
[2019-02-12] MEDS: ESOMEPRAZOLE 40 MG VIAL IV SCH (09:22)
[2019-02-12] MEDS: amiodarone 200mg tablet PO SCH (09:23)
[2019-02-12] MEDS: gabapentin 100mg capsule PO SCH (09:23)
[2019-02-12] MEDS: ferrous sulfate 300mg/5ml UD oral liquid PO SCH ×3 (09:24→16:39)
[2019-02-12] MEDS: rifaximin 550mg tablet PO SCH ×2 (09:24→20:13)
[2019-02-12] MEDS: oxyCODONE IR 5mg (immed. release) tablet PO PRN ×2 (10:42→16:45)
[2019-02-12] MEDS ORDERED: albumin (human) 25% 100 ML IV solution IV ONE ×2 (11:50→15:20)
[2019-02-12] MEDS: fluconazole-Diflucan 200mg/NS 100 ML IV SCH (12:18)
--- NOTE | 2019-02-12 12:59 | NUR ---
0900- MD requesting results from paracentesis from Surjit, unable to locate, spoke with Surjit and [facility]. Plan for para today. 1000- Rounds- check ammonia level, diflucan for positive results from ER urine. 1100- Paracentesis in progress in room, tapped at RUQ. Total output 8400cc, milky white/yellow drainage, specimens sent for cytology. oozing from access site, pressure dressing applied. 25% albumin ordered 1300- replaced dressing to [facility].
[2019-02-12 14:14] LABS: LDH,BODY FLUID 57 U/L
[2019-02-12 14:36] LABS: GLUCOSE,BODY FLUID 163 MG/DL
[2019-02-12 14:37] LABS: TOTAL PROTEIN,BODY FLUID < 2.0 G/DL
--- NOTE | 2019-02-12 15:15 | NUR ---
1500- Charting reviewed, agree with [facility] assessment as charted.
[2019-02-12 15:48] LABS: BFAPPEAR CLOUDY; BFCOLOR YELLOW; BFVOLUME 49 ML
[2019-02-12 15:49] LABS: BF RBC COUNT 36 /CU MM; BF WBC COUNT 151 /CU MM (0-1000); LYMPHOCYTES,BODY FLUID 9 %; MONOCYTES,BODY FLUID 2 %; NEUTROPHILS,BODY FLUID 89 %
--- NOTE | 2019-02-12 16:48 | NUR ---
1600 pt tidal volume under 300, discussed with MD and RT possible vent settings change, MD Mccall to try volume control, attempted TV of 400 pt peak pressured, tried TV of 300 pt continued to peak pressure, returned to ac/pc settings.
--- NOTE | 2019-02-12 18:30 | NUR ---
Patient in room CICU 2010. I have received report from Joseph CHESTER and had the opportunity to ask questions and assume patient care.
[2019-02-12] MEDS: albuterol 2.5 MG/3 ML nebule NEB PRN (19:23)
--- NOTE | 2019-02-12 19:36 | NUR ---
Pt is in bed, supine, with the HOB at 30 degree angle. Pt is very sleepy, unable to really keep his eyes open for any length of time. Shakes his head trying to stay awake when being asked questions. Pupils are equal and react to light. Pt is weak, but is able to lift both forearms off of the bed when asked to. He can lift his hand up to his face. Pt's oral cavity is very dry. Lungs are course in LLL, and gurgling like he is breathing under water, both inspiratory and expiratory, in his RLL. Pt's O2 sats are 98% on 3L NC. HR is 84, NSR. BP 97/45, and has been low since dialysis was attempted earlier today. CVP is currently 7, after being leveled, zeroed and transduced. RR is 16. According to Day shift RN, they are thinking of attempting dialysis again tomorrow.
--- NOTE | 2019-02-12 19:40 | NUR ---
Attempted EZPap with pt post respiratory tx. Lung sounds at the bases are poor, with coarse crakles, right sounding almost absent. Pt instructed to take deep breaths and forcefully exhale through the ezpap as I held the mask over his nose and mouth. Pt is unable to do this modality at all, with no pressure gauge movement. For therapy to be effective, pressure needs to reach at least 15-20, however pt is too weak. Spoke with RN, Chaz, and he will be speaking with Kee Bone NP in regards to trying bipap tonight. Addendum: 02/12/19 at 3 by Isabelle Jarrett RT Amended: Links added.
[2019-02-12] MEDS: lactobacillus rhamnosus 10,000 MMU CELLS/CAPSULE PO SCH (20:13)
--- NOTE | 2019-02-12 22:04 | NUR ---
RT eval and tx done. Pt shows qualification for IPV/Metaneb/PEP, pt is already on Bipap so will cont with that. Will cont to monitor pt. Addendum: 02/12/19 at 2205 by Isabelle Jarrett RT Amended: Links added.
[2019-02-12] MEDS ORDERED: albuterol 2.5 MG/3 ML nebule NEB PRN (22:10)
[2019-02-12] MEDS: ALPRAZolam 0.25mg tablet PO PRN (22:21)
[2019-02-12] MEDS: albuterol 2.5 MG/3 ML nebule NEB SCH (23:12)
[2019-02-13] VITALS (23 sets, daily range): BP systolic 83–123; BP diastolic 40–72
[2019-02-13] MEDS: midodrine 5mg tablet PO SCH ×3 (01:01→16:39)
--- NOTE | 2019-02-13 01:45 | NUR ---
Pt still not producing any urine. Pt was bladder scanned to confirm that he does not have urinary retention. Bladder scan showed less than 10mls of urine.
[2019-02-13] MEDS: NORepinephrine 8mg/ 250ml NS 250 ML IV SCH (03:00)
[2019-02-13] MEDS: albuterol 2.5 MG/3 ML nebule NEB SCH ×6 (03:22→23:01)
[2019-02-13 03:40] LABS: BASOPHILS # (AUTO) 0.1 X10'3 (0-0.2); BASOPHILS % (AUTO) 0.3 % (0-1); EOSINOPHILS % (AUTO) 0 % (0-6); HEMATOCRIT 24.9 % (42.0-52.0); HEMOGLOBIN 7.9 g/dl (14.0-17.9); LYMPHOCYTES # (AUTO) 0.5 X10'3 (1.1-4.8); LYMPHOCYTES % (AUTO) 2.4 % (21-51); MEAN CORPUSCULAR HEMOGLOBIN 28.6 PG (27.0-31.0); MEAN CORPUSCULAR HGB CONC 31.9 g/dL (33.0-36.5); MEAN CORPUSCULAR VOLUME 89.7 FL (78-98); MEAN PLATELET VOLUME 8.6 FL (7.4-10.4); MONOCYTES # (AUTO) 1.4 X10'3 (0-0.9); MONOCYTES % (AUTO) 6.8 % (2-12); NEUTROPHILS # (AUTO) 18.7 X10'3 (1.8-7.7); NEUTROPHILS % (AUTO) 90.5 % (42-75); PLATELET COUNT 121 X10'3 (140-440); RED BLOOD COUNT 2.77 X10'6 (4.70-6.10); RED CELL DISTRIBUTION WIDTH 20.9 % (11.5-14.5); WHITE BLOOD COUNT 20.7 X10'3 (4.5-11.0)
[2019-02-13 03:57] LABS: ALANINE AMINOTRANSFERASE 200 U/L (12-78); ALBUMIN/GLOBULIN RATIO 0.9 (1.1-1.5); ALKALINE PHOSPHATASE 635 IU/L (46-116); ANION GAP 14 (8-16); ASPARTATE AMINO TRANSFERASE 195 U/L (10-37); BILIRUBIN,TOTAL 1.1 MG/DL (0.1-1.0); BLOOD UREA NITROGEN 83 MG/DL (7-18); BUN/CREATININE RATIO 31.3 (5.4-32.0); CALCIUM 8.1 MG/DL (8.5-10.1); CHLORIDE 95 MMOL/L (99-107); CREATININE 2.65 MG/DL (0.60-1.10); GLUCOSE 109 MG/DL (70-104); MAGNESIUM 2.2 MG/DL (1.5-2.4); POTASSIUM 4.4 MMOL/L (3.5-5.1); SODIUM 134 MMOL/L (135-145); TOTAL CARBON DIOXIDE 25.3 MMOL/L (24-32); TOTAL PROTEIN 6.3 G/DL (6.4-8.2); eGFR 25 ML/MIN
[2019-02-13 04:12] LABS: ANISOCYTOSIS 3+; HYPOCHROMASIA 1+; PLATELET ESTIMATE DECREASED
--- NOTE | 2019-02-13 06:25 | NUR ---
Patient in room CICU 2010. I have received report from Chaz and had the opportunity to ask questions and assume patient care.
[2019-02-13] MEDS: fluconazole-Diflucan 200mg/NS 100 ML IV SCH (07:45)
[2019-02-13] MEDS: lactobacillus rhamnosus 10,000 MMU CELLS/CAPSULE PO SCH ×2 (07:45→19:25)
[2019-02-13] MEDS: ferrous sulfate 300mg/5ml UD oral liquid PO SCH ×3 (07:45→16:39)
[2019-02-13] MEDS: ciprofloxacin lact 400MG/200ML 200 ML IV SCH (07:45)
[2019-02-13] MEDS: amiodarone 200mg tablet PO SCH (07:45)
[2019-02-13] MEDS: rifaximin 550mg tablet PO SCH ×2 (07:45→19:24)
[2019-02-13] MEDS: gabapentin 100mg capsule PO SCH (07:46)
[2019-02-13] MEDS: docusate sodium 100mg/10ml UD cup PO SCH ×2 (08:00→19:24)
[2019-02-13 08:19] LABS: HBSAG SCREEN Negative (Negative)
[2019-02-13] MEDS: ESOMEPRAZOLE 40 MG VIAL IV SCH (08:49)
[2019-02-13] MEDS ORDERED: heparin 1,000unit/ml 10ml vial 10 ML IV ONE (10:40)
[2019-02-13] MEDS ORDERED: normal saline 1000ml 250 ML IV PRN (10:40)
[2019-02-13] MEDS ORDERED: epoetin 20,000 units/ml inj IV ONE (10:40)
[2019-02-13] MEDS ORDERED: heparin 1,000 units/ml 10ml inj HE ONE ×2 (10:45)
--- NOTE | 2019-02-13 11:18 | NUR ---
Reassessment: Tube feeding tolerated at goal rate. GRV are WNL. Patient now receiving water flush at 100 ml Q4H per , d/w RN. BSS reassessment done this morning, FIREARMS SPECIALIST reports patient is not protecting airway when swallowing, needs to be NPO and FIREARMS SPECIALIST will reassess, continue TF for now per madhu. Receiving HD today. Will continue to follow. Rec: 1. NGTF using Vital High Protein at 90ml/hr goal; to provide 2160ml fluid, 2160kcals, 1750ml free water, and 189g protein. 2. 100 ml Q4H per MD 3. prealbumin Q /, daily wts 4. routine bowel care as needed, hold with moderate liquid stools 5. Advance diet as medically indicated when can pass swallow heart healthy/carb controlled per FIREARMS SPECIALIST recommendations Addendum: 02/13/19 at [address] Amended: Links added.
--- NOTE | 2019-02-13 15:39 | NUR ---
0900- speech eval- failed swallow eval. Will be reevaluated tomorrow. Pt is very lethargic. A&O. 1500- Dialysis in progress. wound care here, dressing applied to left abdomen and coccyx. Rectal tube flushed and linen changed.
--- NOTE | 2019-02-13 15:57 | NUR ---
Entry error Addendum: 02/13/19 at 1557 by Juany Zayas RN Amended: Links added.
--- NOTE | 2019-02-13 18:30 | NUR ---
Patient in room CICU 2010. I have received report from dhaval charles and had the opportunity to ask questions and assume patient care.
[2019-02-13] MEDS: NYSTATIN CREAM - 30GM TUBE TP SCH (19:25)
--- NOTE | 2019-02-13 22:00 | NUR ---
pt pulled off his dialysis cath dressing and attempted to pull on line. pt continued to pull at lines after education was given on the importance of the lines. pt placed in bilateral wrist soft restraints. notified. order received
[2019-02-14] VITALS (23 sets, daily range): BP systolic 105–132; BP diastolic 40–68
[2019-02-14] MEDS: midodrine 5mg tablet PO SCH ×4 (00:31→23:29)
[2019-02-14 02:33] LABS: BASOPHILS % (AUTO) 0.2 % (0-1); EOSINOPHILS % (AUTO) 0.1 % (0-6); HEMATOCRIT 23.4 % (42.0-52.0); HEMOGLOBIN 7.5 g/dl (14.0-17.9); LYMPHOCYTES # (AUTO) 0.2 X10'3 (1.1-4.8); LYMPHOCYTES % (AUTO) 1.3 % (21-51); MEAN CORPUSCULAR HEMOGLOBIN 28.7 PG (27.0-31.0); MEAN CORPUSCULAR HGB CONC 32.2 g/dL (33.0-36.5); MONOCYTES % (AUTO) 5.1 % (2-12); NEUTROPHILS # (AUTO) 17.9 X10'3 (1.8-7.7); NEUTROPHILS % (AUTO) 93.3 % (42-75); PLATELET COUNT 87 X10'3 (140-440); RED BLOOD COUNT 2.63 X10'6 (4.70-6.10); RED CELL DISTRIBUTION WIDTH 20.4 % (11.5-14.5); WHITE BLOOD COUNT 19.2 X10'3 (4.5-11.0)
[2019-02-14 02:47] LABS: ALANINE AMINOTRANSFERASE 158 U/L (12-78); ALBUMIN 2.4 G/DL (3.4-5.0); ALBUMIN/GLOBULIN RATIO 0.7 (1.1-1.5); ALKALINE PHOSPHATASE 585 IU/L (46-116); ANION GAP 5 (8-16); ASPARTATE AMINO TRANSFERASE 119 U/L (10-37); BLOOD UREA NITROGEN 45 MG/DL (7-18); BUN/CREATININE RATIO 28.3 (5.4-32.0); CALCIUM 8.1 MG/DL (8.5-10.1); CHLORIDE 99 MMOL/L (99-107); CREATININE 1.59 MG/DL (0.60-1.10); GLUCOSE 149 MG/DL (70-104); MAGNESIUM 1.9 MG/DL (1.5-2.4); POTASSIUM 3.9 MMOL/L (3.5-5.1); PREALBUMIN 9.2 MG/DL (19-36); SODIUM 134 MMOL/L (135-145); TOTAL CARBON DIOXIDE 29.7 MMOL/L (24-32); TOTAL PROTEIN 5.8 G/DL (6.4-8.2); eGFR 45 ML/MIN
[2019-02-14 02:49] LABS: ANISOCYTOSIS 3+; HYPOCHROMASIA 1+; PLATELET ESTIMATE DECREASED
[2019-02-14] MEDS: albuterol 2.5 MG/3 ML nebule NEB SCH ×6 (03:24→22:57)
[2019-02-14] MEDS: oxyCODONE IR 5mg (immed. release) tablet PO PRN (03:31)
--- NOTE | 2019-02-14 06:21 | NUR ---
Patient in room CICU 2010. I have received report from Alma CHESTER and had the opportunity to ask questions and assume patient care.
[2019-02-14] MEDS: ciprofloxacin lact 400MG/200ML 200 ML IV SCH (08:13)
[2019-02-14] MEDS: ferrous sulfate 300mg/5ml UD oral liquid PO SCH ×3 (08:15→17:34)
[2019-02-14] MEDS: fluconazole-Diflucan 200mg/NS 100 ML IV SCH (08:15)
[2019-02-14] MEDS: ESOMEPRAZOLE 40 MG VIAL IV SCH (08:15)
[2019-02-14] MEDS: gabapentin 100mg capsule PO SCH (08:15)
[2019-02-14] MEDS: ondansetron/PF 4mg/2ml inj IV PRN (08:15)
[2019-02-14] MEDS: lactobacillus rhamnosus 10,000 MMU CELLS/CAPSULE PO SCH ×2 (08:16→19:32)
[2019-02-14] MEDS: rifaximin 550mg tablet PO SCH ×2 (08:16→19:32)
[2019-02-14] MEDS: docusate sodium 100mg/10ml UD cup PO SCH ×2 (08:16→19:32)
[2019-02-14] MEDS: amiodarone 200mg tablet PO SCH (08:17)
[2019-02-14] MEDS: NYSTATIN CREAM - 30GM TUBE TP SCH ×2 (08:17→20:00)
[2019-02-14] MEDS: ALPRAZolam 0.25mg tablet PO PRN (08:17)
[2019-02-14 11:01] LABS: ABG BASE EXCESS -0.7 mmol/L (-2.0-3.0); ABG HCO3 26.7 mmol/L (22.0-26.0); ABG OXYGEN SATURATION 94.6 % (95-98); ABG PCO2 (T) 58.2 mmHg (35.0-48.0); ABG PH (T) 7.279 (7.350-7.450); ABG PO2 (T) 81.1 mmHg (83-108); FCOHb 0.2 % (0.5-1.5); FLOW 3 L/min; FMetHb 0.3 % (0.3-1.12); FO2Hb 94.1 % (94-100); TOTAL HEMOGLOBIN 9.8 G/dl (14.0-18.0)
--- NOTE | 2019-02-14 11:30 | NUR ---
Pt desating around 10:00 respiratory called to assess pt. Attempting deep suctioning with minimal results. Pt with more labored breathing than this am. Blood gases drawn and CO2 elevated at 58. CO2 in prior blood gases all in the 30's. Pt placed on Bipap. Dr. Jordan in to see pt. Pt with right lobe pleural effusions. Dr. Jordan wants to have it tapped.
--- NOTE | 2019-02-14 18:18 | NUR ---
Problems reprioritized. Patient report given, questions answered & plan of care reviewed with Diana CHESTER.
--- NOTE | 2019-02-14 19:18 | NUR ---
[facility] 2010. I have received report from NEMO Cesar and had the opportunity to ask questions and assume patient care. Addendum: 02/14/19 at 1919 by Diana Funk RN Received patient at 1830
[2019-02-14] MEDS: NORepinephrine 8mg/ 250ml NS 250 ML IV SCH (22:10)
[2019-02-15] VITALS (11 sets, daily range): BP systolic 92–137; BP diastolic 45–66
[2019-02-15] MEDS: albuterol 2.5 MG/3 ML nebule NEB SCH ×2 (02:45→08:46)
[2019-02-15 03:33] LABS: BASOPHILS % (AUTO) 0.1 % (0-1); EOSINOPHILS % (AUTO) 0 % (0-6); HEMATOCRIT 25.2 % (42.0-52.0); HEMOGLOBIN 8.1 g/dl (14.0-17.9); LYMPHOCYTES # (AUTO) 0.4 X10'3 (1.1-4.8); LYMPHOCYTES % (AUTO) 1.3 % (21-51); MEAN CORPUSCULAR HEMOGLOBIN 28.9 PG (27.0-31.0); MEAN CORPUSCULAR HGB CONC 32.3 g/dL (33.0-36.5); MEAN CORPUSCULAR VOLUME 89.5 FL (78-98); MEAN PLATELET VOLUME 8.9 FL (7.4-10.4); MONOCYTES # (AUTO) 1.7 X10'3 (0-0.9); MONOCYTES % (AUTO) 6.2 % (2-12); NEUTROPHILS # (AUTO) 25.6 X10'3 (1.8-7.7); NEUTROPHILS % (AUTO) 92.4 % (42-75); PLATELET COUNT 112 X10'3 (140-440); RED BLOOD COUNT 2.81 X10'6 (4.70-6.10); RED CELL DISTRIBUTION WIDTH 21.2 % (11.5-14.5)
[2019-02-15 03:41] LABS: WHITE BLOOD COUNT 27.7 X10'3 (4.5-11.0)
[2019-02-15 03:45] LABS: ALANINE AMINOTRANSFERASE 132 U/L (12-78); ALBUMIN 2.3 G/DL (3.4-5.0); ALBUMIN/GLOBULIN RATIO 0.6 (1.1-1.5); ALKALINE PHOSPHATASE 635 IU/L (46-116); ANION GAP 10 (8-16); ASPARTATE AMINO TRANSFERASE 94 U/L (10-37); BILIRUBIN,TOTAL 1.1 MG/DL (0.1-1.0); BLOOD UREA NITROGEN 78 MG/DL (7-18); BUN/CREATININE RATIO 32.4 (5.4-32.0); CALCIUM 8.1 MG/DL (8.5-10.1); CHLORIDE 96 MMOL/L (99-107); CREATININE 2.41 MG/DL (0.60-1.10); GLUCOSE 165 MG/DL (70-104); POTASSIUM 4.7 MMOL/L (3.5-5.1); SODIUM 132 MMOL/L (135-145); TOTAL CARBON DIOXIDE 26.3 MMOL/L (24-32); TOTAL PROTEIN 6.1 G/DL (6.4-8.2); eGFR 28 ML/MIN
[2019-02-15 04:08] LABS: MAGNESIUM 2.1 MG/DL (1.5-2.4)
--- NOTE | 2019-02-15 04:13 | NUR ---
Notified September BRAYDEN Chin of patient's heart rate jumping to the 150's. Patient's heart rhythm is irregular with P waves jumping from 118 to high 120's, occasionally going to 130's. Patient is asymptomatic. SAP BOBJ DEVELOPER did not give new orders but was asked to continue monitoring and notify if it heart rhythm gets higher and maintains there. Will continue to monitor patient.
[2019-02-15] MEDS ORDERED: amiodarone 150mg/dext, iso-os 100 ML IV ONE ×2 (05:10→05:13)
--- NOTE | 2019-02-15 05:20 | NUR ---
September Elsy, BRAYDEN notified of rapid a. fib in 150's and 160's. PERSONNEL AND PAYROLL TECHNICIAN ordered Amiodarone drip to be started now.
--- NOTE | 2019-02-15 05:20 | NUR ---
September BRAYDEN Chin notified of otto monroe fin
[2019-02-15] MEDS: amiodarone/D5 360MG/200ML BAG 200 ML IV SCH ×4 (05:34→23:22)
--- NOTE | 2019-02-15 06:21 | NUR ---
Problems reprioritized. Patient report given, questions answered & plan of care reviewed with NEMO Keen.
[2019-02-15 06:56] LABS: ANISOCYTOSIS 3+; HYPOCHROMASIA 1+; PLATELET ESTIMATE DECREASED; POLYCHROMASIA 1+; TOTAL CELLS COUNTED 100; TOXIC GRANULATION 2+
[2019-02-15 07:46] LABS: ABG BASE EXCESS -3.3 mmol/L (-2.0-3.0); ABG HCO3 25.4 mmol/L (22.0-26.0); ABG PCO2 (T) 67.6 mmHg (35.0-48.0); ABG PH (T) 7.193 (7.350-7.450); ABG PO2 (T) 107.4 mmHg (83-108); FCOHb 0.3 % (0.5-1.5); FMetHb 0.3 % (0.3-1.12); FO2Hb 96.4 % (94-100); MINUTE VOLUME 20 L/min; RESPIRATORY RATE 16 b/min; RESPIRATORY RATE (OBSERVED) 34 b/min; TOTAL HEMOGLOBIN 9.5 G/dl (14.0-18.0)
--- NOTE | 2019-02-15 07:51 | NUR ---
Critical ABG reported to DR Carbajal. Orders to change BiPap settings to 20/5
[2019-02-15] MEDS: ESOMEPRAZOLE 40 MG VIAL IV SCH (08:00)
[2019-02-15] MEDS ORDERED: heparin 1,000 units/ml 10ml inj HE ONE ×2 (08:00)
[2019-02-15] MEDS ORDERED: heparin 1,000unit/ml 10ml vial 10 ML IV ONE (08:00)
[2019-02-15] MEDS: ciprofloxacin lact 400MG/200ML 200 ML IV SCH (08:00)
[2019-02-15] MEDS: fluconazole-Diflucan 200mg/NS 100 ML IV SCH (08:00)
[2019-02-15] MEDS: rifaximin 550mg tablet PO SCH ×2 (08:00→20:07)
[2019-02-15] MEDS: lactobacillus rhamnosus 10,000 MMU CELLS/CAPSULE PO SCH ×2 (08:00→20:08)
[2019-02-15] MEDS: docusate sodium 100mg/10ml UD cup PO SCH ×2 (08:00→20:07)
[2019-02-15] MEDS: midodrine 5mg tablet PO SCH ×2 (08:00→16:36)
[2019-02-15] MEDS: NYSTATIN CREAM - 30GM TUBE TP SCH ×2 (08:00→20:07)
[2019-02-15] MEDS ORDERED: epoetin 20,000 units/ml inj IV ONE (08:00)
[2019-02-15] MEDS ORDERED: normal saline 1000ml 250 ML IV PRN (08:00)
[2019-02-15] MEDS: gabapentin 100mg capsule PO SCH (08:00)
[2019-02-15] MEDS: ferrous sulfate 300mg/5ml UD oral liquid PO SCH ×3 (08:30→20:12)
[2019-02-15] MEDS ORDERED: VANCOMYCIN 1,500MG inj. 1,500 MG in normal saline 250ml IV soln 280 ML IV ONE (09:30)
[2019-02-15] MEDS ORDERED: tobramycin 40mg/ml inj IV ONE (09:30)
[2019-02-15] MEDS ORDERED: NORMAL SALINE IV ONE (09:40)
[2019-02-15] MEDS ORDERED: TOBRAMYCIN IV ONE (09:40)
[2019-02-15] MEDS ORDERED: midazolam 100mg in NS 100ml 100 ML IV PRN ×2 (10:21→10:29)
[2019-02-15] MEDS ORDERED: midazolam 2 mg/2 ml injection IV ONE ×2 (10:25→10:30)
[2019-02-15] MEDS ORDERED: fentaNYL/PF 50MCG/1 ML 2ML syringe IV PRN ×2 (10:25→10:30)
[2019-02-15] MEDS ORDERED: FENTANYL-0.9 % NACL/PF 100 ML IV PRN (10:29)
[2019-02-15] MEDS ORDERED: ipratropium/albuterol 3ml nebule NEB PRN (10:30)
[2019-02-15] MEDS: NORepinephrine 8mg/ 250ml NS 250 ML IV SCH (10:56)
[2019-02-15] MEDS: FENTANYL-0.9 % NACL/PF 100 ML IV PRN (11:04)
--- NOTE | 2019-02-15 11:30 | NUR ---
Patient intubated; 05/11 Bronchoscopy performed Patient tolerated well
[2019-02-15] MEDS ORDERED: etomidate 2mg/ml inj. IV ONE (12:00)
[2019-02-15] MEDS: ipratropium/albuterol 3ml nebule NEB SCH ×3 (12:12→22:51)
[2019-02-15 13:11] LABS: ABG BASE EXCESS -4.2 mmol/L (-2.0-3.0); ABG OXYGEN SATURATION 96.5 % (95-98); ABG PCO2 (T) 63.9 mmHg (35.0-48.0); ABG PH (T) 7.211 (7.350-7.450); ABG PO2 (T) 97.2 mmHg (83-108); FCOHb 0.5 % (0.5-1.5); FMetHb 0.3 % (0.3-1.12); FO2Hb 95.7 % (94-100); MINUTE VOLUME 8 L/min; PEEP 5 cm H2O; RESPIRATORY RATE 20 b/min; RESPIRATORY RATE (OBSERVED) 20 b/min; TIDAL VOLUME 400 mL; TOTAL HEMOGLOBIN 15.3 G/dl (14.0-18.0)
[2019-02-15 17:01] LABS: ABG BASE EXCESS 2.3 mmol/L (-2.0-3.0); ABG HCO3 29.4 mmol/L (22.0-26.0); ABG OXYGEN SATURATION 94.6 % (95-98); ABG PCO2 (T) 60.1 mmHg (35.0-48.0); ABG PH (T) 7.308 (7.350-7.450); ABG PO2 (T) 79.3 mmHg (83-108); FCOHb 0.1 % (0.5-1.5); FMetHb 0.2 % (0.3-1.12); FO2Hb 94.3 % (94-100); PEEP 5 cm H2O; RESPIRATORY RATE 20 b/min; TIDAL VOLUME 400 mL; TOTAL HEMOGLOBIN 9.7 G/dl (14.0-18.0)
--- NOTE | 2019-02-15 22:30 | NUR ---
RN Note -MD Communication Notified September that pt's heart rate occasionally getting as high as 150s, but not sustained. September reviewed meds and labs.
[2019-02-16] VITALS (24 sets, daily range): BP systolic 88–126; BP diastolic 41–66
[2019-02-16] MEDS: ipratropium/albuterol 3ml nebule NEB SCH ×6 (02:42→22:47)
[2019-02-16 03:05] LABS: ABG BASE EXCESS 1.1 mmol/L (-2.0-3.0); ABG HCO3 26.8 mmol/L (22.0-26.0); ABG OXYGEN SATURATION 96.2 % (95-98); ABG PCO2 (T) 48.4 mmHg (35.0-48.0); ABG PH (T) 7.362 (7.350-7.450); ABG PO2 (T) 84.1 mmHg (83-108); FCOHb 0.3 % (0.5-1.5); FMetHb 0.2 % (0.3-1.12); FO2Hb 95.7 % (94-100); MINUTE VOLUME 11 L/min; PATIENT TEMPERATURE 37.1; PEEP 5 cm H2O; RESPIRATORY RATE 20 b/min; RESPIRATORY RATE (OBSERVED) 20 b/min; TIDAL VOLUME 400 mL; TOTAL HEMOGLOBIN 9.4 G/dl (14.0-18.0)
[2019-02-16] MEDS: FENTANYL-0.9 % NACL/PF 100 ML IV PRN (03:26)
[2019-02-16 04:23] LABS: BASOPHILS % (AUTO) 0.2 % (0-1); EOSINOPHILS % (AUTO) 0 % (0-6); HEMATOCRIT 24.7 % (42.0-52.0); HEMOGLOBIN 8.2 g/dl (14.0-17.9); LYMPHOCYTES # (AUTO) 0.4 X10'3 (1.1-4.8); LYMPHOCYTES % (AUTO) 1.9 % (21-51); MEAN CORPUSCULAR HEMOGLOBIN 29.4 PG (27.0-31.0); MEAN CORPUSCULAR HGB CONC 33.1 g/dL (33.0-36.5); MEAN CORPUSCULAR VOLUME 88.8 FL (78-98); MEAN PLATELET VOLUME 8.6 FL (7.4-10.4); MONOCYTES # (AUTO) 1.5 X10'3 (0-0.9); MONOCYTES % (AUTO) 6.9 % (2-12); NEUTROPHILS # (AUTO) 19.7 X10'3 (1.8-7.7); PLATELET COUNT 110 X10'3 (140-440); RED BLOOD COUNT 2.78 X10'6 (4.70-6.10); RED CELL DISTRIBUTION WIDTH 21.2 % (11.5-14.5); WHITE BLOOD COUNT 21.7 X10'3 (4.5-11.0)
[2019-02-16 04:29] LABS: ALANINE AMINOTRANSFERASE 114 U/L (12-78); ALBUMIN/GLOBULIN RATIO 0.5 (1.1-1.5); ALKALINE PHOSPHATASE 653 IU/L (46-116); ANION GAP 9 (8-16); ASPARTATE AMINO TRANSFERASE 84 U/L (10-37); BILIRUBIN,TOTAL 0.8 MG/DL (0.1-1.0); BLOOD UREA NITROGEN 53 MG/DL (7-18); BUN/CREATININE RATIO 32.1 (5.4-32.0); CALCIUM 8.1 MG/DL (8.5-10.1); CHLORIDE 99 MMOL/L (99-107); CREATININE 1.65 MG/DL (0.60-1.10); GLUCOSE 166 MG/DL (70-104); POTASSIUM 4.4 MMOL/L (3.5-5.1); SODIUM 135 MMOL/L (135-145); TOTAL CARBON DIOXIDE 26.6 MMOL/L (24-32); TOTAL PROTEIN 5.9 G/DL (6.4-8.2); eGFR 43 ML/MIN
[2019-02-16] MEDS ORDERED: adenosine 3mg/ml 2ml vial IV ONE ×4 (04:42→04:48)
[2019-02-16] MEDS ORDERED: metoprolol tartrate 1mg/ml inj IV ONE (04:46)
[2019-02-16] MEDS ORDERED: esmolol/sodium cl bag 250 ML IV ONE (04:53)
[2019-02-16 04:57] LABS: ANISOCYTOSIS 3+; PLATELET ESTIMATE DECREASED; TOTAL CELLS COUNTED 100
[2019-02-16 04:58] LABS: HYPOCHROMASIA 1+; POLYCHROMASIA FEW; TOXIC GRANULATION 1+
[2019-02-16] MEDS: amiodarone/D5 360MG/200ML BAG 200 ML IV SCH ×3 (05:03→17:34)
[2019-02-16 05:05] LABS: OXYGEN SATURATION (MIXED VEN) 92.3 % (60-80)
[2019-02-16] MEDS: metoprolol tartrate 1mg/ml inj IV SCH ×3 (05:06→10:21)
[2019-02-16] MEDS ORDERED: esmolol 10mg/ml inj IV ONE (05:10)
--- NOTE | 2019-02-16 05:10 | NUR ---
Pt went into rapid a-fib with RVR, rate 220s. September Elsy at bedside on the phone with Dr. Pope. Adenosine given with little effect. Metoprolol given IVP which brought rate to 130s. Esmolol drip started. Dr. Pope en route to cardiovert.
[2019-02-16] MEDS: esmolol/sodium cl bag 250 ML IV SCH ×3 (05:19→16:43)
--- NOTE | 2019-02-16 05:29 | NUR ---
Dr. Pope at bedside. Pt cardioverted. Rhythm converted to normal sinus.
[2019-02-16] MEDS ORDERED: magnesium Cl slow-release 64mg tablet PO PRN (05:55)
[2019-02-16] MEDS ORDERED: magnesium 4gm in 100ml NS 100 ML IV PRN (05:55)
[2019-02-16] MEDS ORDERED: magnesium 2GM in 50ml NS 50 ML IV PRN (05:55)
[2019-02-16 07:29] LABS: MAGNESIUM 1.9 MG/DL (1.5-2.4); PHOSPHORUS 5.1 MG/DL (2.3-4.5)
--- NOTE | 2019-02-16 07:37 | NUR ---
Per Dr Tineo, try to turn off versed, and use fentanyl for sedation up to 250mcg. Try to wean esmolol if HR stays stable.
[2019-02-16] MEDS: docusate sodium 100mg/10ml UD cup PO SCH ×2 (08:00→20:01)
--- NOTE | 2019-02-16 10:17 | NUR ---
Reassessment: Pt didn't tolerate BiPAP and was intubated yesterday per MD notes. Pt continues with TF at goal rate of 90 mL/hr and tolerating with low GRV 0-10 mL. Pt documented with diarrhea with 700 mL stool out 02/15 per I&O, sample to be tested for C.diff per MD notes. Will continue to follow. Rec: 1. NGTF using Vital High Protein at 90ml/hr goal; to provide 2160ml fluid, 2160kcals, 1750ml free water, and 189g protein. 2. 100 ml Q4H per MD 3. prealbumin Q /, daily wts 4. routine bowel care as needed, hold with moderate liquid stools 5. Advance diet as medically indicated when can pass swallow heart healthy/carb controlled per [employer] C[employer]IER recommendations Addendum: 02/16/19 at [address] Amended: Links added.
[2019-02-16] MEDS: fluconazole-Diflucan 200mg/NS 100 ML IV SCH (10:55)
[2019-02-16] MEDS: ciprofloxacin lact 400MG/200ML 200 ML IV SCH (10:55)
[2019-02-16] MEDS: midodrine 5mg tablet PO SCH ×3 (10:56→16:40)
[2019-02-16] MEDS: ferrous sulfate 300mg/5ml UD oral liquid PO SCH ×3 (10:56→16:40)
[2019-02-16] MEDS: ESOMEPRAZOLE 40 MG VIAL IV SCH (10:57)
[2019-02-16] MEDS: gabapentin 100mg capsule PO SCH (10:57)
[2019-02-16] MEDS: rifaximin 550mg tablet PO SCH ×2 (10:57→20:01)
[2019-02-16] MEDS: lactobacillus rhamnosus 10,000 MMU CELLS/CAPSULE PO SCH ×2 (10:57→20:01)
[2019-02-16] MEDS: NYSTATIN CREAM - 30GM TUBE TP SCH ×2 (10:58→20:02)
[2019-02-16] MEDS ORDERED: acetaminophen 325mg tablet PO ONE (14:00)
[2019-02-16] MEDS: mineral oil/petrolatum ophthal oint EACHEYE SCH ×2 (14:00→20:02)
--- NOTE | 2019-02-16 14:48 | NUR ---
Pt now opening eyes to voice; still not following commands
[2019-02-16] MEDS: NORepinephrine 8mg/ 250ml NS 250 ML IV SCH (16:41)
--- NOTE | 2019-02-16 17:27 | NUR ---
Patient moving all extremities and opening eyes to voice. not following any commands. Placed on spontaneous for an hour and did great.
--- NOTE | 2019-02-16 17:28 | NUR ---
Patient with no liquid stool today. Unable to get sample for CDIFF
[2019-02-17] VITALS (24 sets, daily range): BP systolic 85–119; BP diastolic 35–62
[2019-02-17] MEDS: midodrine 5mg tablet PO SCH ×3 (00:06→16:22)
[2019-02-17] MEDS: amiodarone/D5 360MG/200ML BAG 200 ML IV SCH ×4 (00:06→17:50)
[2019-02-17] MEDS: mineral oil/petrolatum ophthal oint EACHEYE SCH ×4 (02:44→19:54)
[2019-02-17] MEDS: ipratropium/albuterol 3ml nebule NEB SCH ×6 (02:55→22:42)
[2019-02-17 03:21] LABS: ABG BASE EXCESS -3.5 mmol/L (-2.0-3.0); ABG HCO3 22.7 mmol/L (22.0-26.0); ABG PCO2 (T) 46.3 mmHg (35.0-48.0); ABG PH (T) 7.308 (7.350-7.450); ABG PO2 (T) 78.8 mmHg (83-108); FCOHb 0.3 % (0.5-1.5); FMetHb 0.2 % (0.3-1.12); FO2Hb 93.5 % (94-100); MINUTE VOLUME 10 L/min; PEEP 5 cm H2O; RESPIRATORY RATE 20 b/min; RESPIRATORY RATE (OBSERVED) 20 b/min; TIDAL VOLUME 400 mL; TOTAL HEMOGLOBIN 9.4 G/dl (14.0-18.0)
[2019-02-17 03:27] LABS: BASOPHILS % (AUTO) 0.2 % (0-1); EOSINOPHILS % (AUTO) 0 % (0-6); HEMATOCRIT 24.8 % (42.0-52.0); HEMOGLOBIN 7.9 g/dl (14.0-17.9); LYMPHOCYTES # (AUTO) 0.5 X10'3 (1.1-4.8); LYMPHOCYTES % (AUTO) 2.3 % (21-51); MEAN CORPUSCULAR HEMOGLOBIN 28.4 PG (27.0-31.0); MEAN CORPUSCULAR HGB CONC 32.1 g/dL (33.0-36.5); MEAN CORPUSCULAR VOLUME 88.4 FL (78-98); MEAN PLATELET VOLUME 8.5 FL (7.4-10.4); MONOCYTES # (AUTO) 1.6 X10'3 (0-0.9); MONOCYTES % (AUTO) 7.5 % (2-12); NEUTROPHILS # (AUTO) 18.5 X10'3 (1.8-7.7); PLATELET COUNT 143 X10'3 (140-440); RED CELL DISTRIBUTION WIDTH 21.1 % (11.5-14.5); WHITE BLOOD COUNT 20.6 X10'3 (4.5-11.0)
[2019-02-17] MEDS: esmolol/sodium cl bag 250 ML IV SCH ×3 (03:32→18:30)
[2019-02-17 03:39] LABS: ALBUMIN 1.9 G/DL (3.4-5.0); ALBUMIN/GLOBULIN RATIO 0.5 (1.1-1.5); ALKALINE PHOSPHATASE 558 IU/L (46-116); ANION GAP 10 (8-16); ASPARTATE AMINO TRANSFERASE 71 U/L (10-37); BILIRUBIN,TOTAL 0.9 MG/DL (0.1-1.0); BLOOD UREA NITROGEN 84 MG/DL (7-18); BUN/CREATININE RATIO 37.7 (5.4-32.0); CALCIUM 8.9 MG/DL (8.5-10.1); CHLORIDE 95 MMOL/L (99-107); CREATININE 2.23 MG/DL (0.60-1.10); GLUCOSE 168 MG/DL (70-104); PHOSPHORUS 7.6 MG/DL (2.3-4.5); POTASSIUM 5.1 MMOL/L (3.5-5.1); SODIUM 130 MMOL/L (135-145); TOTAL CARBON DIOXIDE 24.7 MMOL/L (24-32); eGFR 31 ML/MIN
[2019-02-17 03:56] LABS: ALANINE AMINOTRANSFERASE 94 U/L (12-78)
[2019-02-17 04:31] LABS: ANISOCYTOSIS 3+; PLATELET ESTIMATE DECREASED; TOTAL CELLS COUNTED 100
[2019-02-17 04:32] LABS: HYPOCHROMASIA 1+; LARGE PLATELETS FEW; POLYCHROMASIA FEW; TOXIC GRANULATION 1+
[2019-02-17] MEDS: FENTANYL-0.9 % NACL/PF 100 ML IV PRN ×2 (04:51→22:59)
[2019-02-17] MEDS: NORepinephrine 8mg/ 250ml NS 250 ML IV SCH (05:14)
--- NOTE | 2019-02-17 06:15 | NUR ---
Patient in room CICU 2010. I have received report from shift lab technician and had the opportunity to ask questions and assume patient care.
[2019-02-17] MEDS: ferrous sulfate 300mg/5ml UD oral liquid PO SCH ×3 (08:40→19:53)
[2019-02-17] MEDS: docusate sodium 100mg/10ml UD cup PO SCH ×2 (08:40→19:53)
[2019-02-17] MEDS: rifaximin 550mg tablet PO SCH (08:41)
[2019-02-17] MEDS: fluconazole-Diflucan 200mg/NS 100 ML IV SCH (08:41)
[2019-02-17] MEDS: gabapentin 100mg capsule PO SCH (08:41)
[2019-02-17] MEDS: NYSTATIN CREAM - 30GM TUBE TP SCH ×2 (08:41→20:07)
[2019-02-17] MEDS: ciprofloxacin lact 400MG/200ML 200 ML IV SCH (08:41)
[2019-02-17] MEDS: lactobacillus rhamnosus 10,000 MMU CELLS/CAPSULE PO SCH ×2 (08:41→19:53)
[2019-02-17] MEDS: ESOMEPRAZOLE 40 MG VIAL IV SCH (09:29)
--- NOTE | 2019-02-17 18:30 | NUR ---
Patient in room CICU 2010. I have received report from Tammi CHESTER and had the opportunity to ask questions and assume patient care.
[2019-02-17] MEDS ORDERED: rifaximin 20mg/ml oral suspension 60 ML BOTTLE PO SCH ×2 (20:00→20:06)
--- NOTE | 2019-02-17 20:00 | NUR ---
patient opens eyes to name, nods head when you ask patient if he can hear you but will not follow commands. Will continue to monitor patient closely.
[2019-02-18] VITALS (24 sets, daily range): BP systolic 88–110; BP diastolic 34–56
[2019-02-18] MEDS: amiodarone/D5 360MG/200ML BAG 200 ML IV SCH ×5 (00:34→22:23)
[2019-02-18] MEDS: midodrine 5mg tablet PO SCH ×2 (00:34→07:39)
[2019-02-18] MEDS: esmolol/sodium cl bag 250 ML IV SCH ×3 (01:59→21:29)
[2019-02-18] MEDS: mineral oil/petrolatum ophthal oint EACHEYE SCH ×4 (02:07→20:36)
[2019-02-18 03:09] LABS: BASOPHILS % (AUTO) 0.1 % (0-1); EOSINOPHILS % (AUTO) 0 % (0-6); HEMATOCRIT 22.7 % (42.0-52.0); HEMOGLOBIN 7.3 g/dl (14.0-17.9); LYMPHOCYTES # (AUTO) 0.4 X10'3 (1.1-4.8); LYMPHOCYTES % (AUTO) 1.1 % (21-51); MEAN CORPUSCULAR HEMOGLOBIN 27.8 PG (27.0-31.0); MEAN CORPUSCULAR HGB CONC 32.1 g/dL (33.0-36.5); MEAN CORPUSCULAR VOLUME 86.6 FL (78-98); MEAN PLATELET VOLUME 8.7 FL (7.4-10.4); MONOCYTES # (AUTO) 1.7 X10'3 (0-0.9); MONOCYTES % (AUTO) 5.1 % (2-12); NEUTROPHILS # (AUTO) 30.5 X10'3 (1.8-7.7); NEUTROPHILS % (AUTO) 93.7 % (42-75); PLATELET COUNT 126 X10'3 (140-440); RED BLOOD COUNT 2.62 X10'6 (4.70-6.10); RED CELL DISTRIBUTION WIDTH 20.5 % (11.5-14.5)
[2019-02-18 03:12] LABS: WHITE BLOOD COUNT 32.6 X10'3 (4.5-11.0)
[2019-02-18 03:27] LABS: ALANINE AMINOTRANSFERASE 85 U/L (12-78); ALBUMIN 1.8 G/DL (3.4-5.0); ALBUMIN/GLOBULIN RATIO 0.4 (1.1-1.5); ALKALINE PHOSPHATASE 506 IU/L (46-116); ANION GAP 15 (8-16); ASPARTATE AMINO TRANSFERASE 66 U/L (10-37); BILIRUBIN,TOTAL 0.8 MG/DL (0.1-1.0); BLOOD UREA NITROGEN 108 MG/DL (7-18); BUN/CREATININE RATIO 38.4 (5.4-32.0); CALCIUM 7.4 MG/DL (8.5-10.1); CHLORIDE 91 MMOL/L (99-107); CREATININE 2.81 MG/DL (0.60-1.10); GLUCOSE 160 MG/DL (70-104); MAGNESIUM 1.7 MG/DL (1.5-2.4); PHOSPHORUS 8.5 MG/DL (2.3-4.5); SODIUM 128 MMOL/L (135-145); TOTAL CARBON DIOXIDE 22.4 MMOL/L (24-32); TOTAL PROTEIN 5.9 G/DL (6.4-8.2); eGFR 23 ML/MIN
[2019-02-18] MEDS ORDERED: sodium polystyrene sulfonate 15gm/60ml oral suspension PO ONE (03:35)
[2019-02-18] MEDS: ipratropium/albuterol 3ml nebule NEB SCH ×6 (03:41→23:09)
[2019-02-18 03:47] LABS: ANISOCYTOSIS 3+; PLATELET ESTIMATE DECREASED; POLYCHROMASIA FEW; TOTAL CELLS COUNTED 100
[2019-02-18 03:48] LABS: HYPOCHROMASIA 1+; LARGE PLATELETS FEW; TOXIC GRANULATION 1+
[2019-02-18] MEDS: NORepinephrine 8mg/ 250ml NS 250 ML IV SCH ×2 (04:00→20:04)
[2019-02-18 04:10] LABS: ABG BASE EXCESS -7.3 mmol/L (-2.0-3.0); ABG OXYGEN SATURATION 93.5 % (95-98); ABG PH (T) 7.328 (7.350-7.450); ABG PO2 (T) 74.2 mmHg (83-108); ALLEN'S TEST Positive; FCOHb 0.1 % (0.5-1.5); FMetHb 0.3 % (0.3-1.12); FO2Hb 93.1 % (94-100); MINUTE VOLUME 8 L/min; PEEP 5 cm H2O; RESPIRATORY RATE 20 b/min; RESPIRATORY RATE (OBSERVED) 20 b/min; TIDAL VOLUME 400 mL
--- NOTE | 2019-02-18 04:30 | NUR ---
Updated NJ Chin on patients current critical lab values. New orders received. Will continue to monitor.
[2019-02-18] MEDS: fluconazole-Diflucan 200mg/NS 100 ML IV SCH (07:38)
[2019-02-18] MEDS: NYSTATIN CREAM - 30GM TUBE TP SCH ×2 (07:38→20:36)
[2019-02-18] MEDS: ferrous sulfate 300mg/5ml UD oral liquid PO SCH ×2 (07:38→12:11)
[2019-02-18] MEDS: ciprofloxacin lact 400MG/200ML 200 ML IV SCH (07:38)
[2019-02-18] MEDS: ESOMEPRAZOLE 40 MG VIAL IV SCH (07:39)
[2019-02-18] MEDS: lactobacillus rhamnosus 10,000 MMU CELLS/CAPSULE PO SCH (07:39)
[2019-02-18] MEDS: gabapentin 100mg capsule PO SCH (07:39)
[2019-02-18] MEDS: docusate sodium 100mg/10ml UD cup PO SCH (08:00)
[2019-02-18] MEDS ORDERED: albumin (Human) 5% 250ml 250 ML IV PRN (09:35)
[2019-02-18] MEDS ORDERED: heparin 1,000 units/ml 10ml inj IV ONE (09:35)
[2019-02-18] MEDS ORDERED: heparin 1,000unit/ml 10ml vial 10 ML IV ONE (09:35)
[2019-02-18] MEDS ORDERED: epoetin 20,000 units/ml inj IV ONE (09:35)
[2019-02-18] MEDS ORDERED: heparin 1,000 units/ml 10ml inj HE ONE ×2 (09:40)
--- NOTE | 2019-02-18 09:42 | NUR ---
0600 -Received report from Diana CHESTER,assumed care of patient. 0830 Patient placed on spontaneous. Weaning parameters completed by RT. Pt minimally responsive. Withdrawn, nods head on occasion. Does not seem interested or able to participate in care anymore.
[2019-02-18 09:43] LABS: ALBUMIN 1.7 G/DL (3.4-5.0); ANION GAP 16 (8-16); BLOOD UREA NITROGEN 110 MG/DL (7-18); BUN/CREATININE RATIO 38.9 (5.4-32.0); CHLORIDE 91 MMOL/L (99-107); CREATININE 2.83 MG/DL (0.60-1.10); GLUCOSE 212 MG/DL (70-104); POTASSIUM 5.5 MMOL/L (3.5-5.1); SODIUM 128 MMOL/L (135-145); TOTAL CARBON DIOXIDE 20.7 MMOL/L (24-32); eGFR 23 ML/MIN
[2019-02-18] MEDS: ceftazidime 1000mg in D5W 50ml 50 ML IV SCH (10:03)
--- NOTE | 2019-02-18 11:30 | NUR ---
Attempt to contact family for consent for planned para. Patient able to open his eyes but unable to follow commands or respond purposefully to questions or verbal stimuli. Awaiting call from family.
--- NOTE | 2019-02-18 11:45 | NUR ---
1145- Awaiting return call from brother to consent for paracentesis. Patient unable at this time. Per rounds send lactulose level, resume lactulose q 6hours, dc esmolol.
--- NOTE | 2019-02-18 12:50 | NUR ---
RN to attempt to contact family again for consent for planned paracentesis, attempt unsuccessful. Awaiting call back.
[2019-02-18] MEDS ORDERED: lactulose 20gm/30ml cup PO SCH ×2 (14:00)
[2019-02-18] MEDS ORDERED: diltiazem-D5W 125mg/125ml 125 ML IV SCH (16:30)
[2019-02-18] MEDS: ferrous sulfate 300mg/5ml UD oral liquid CORPAK SCH (16:51)
[2019-02-18] MEDS: midodrine 5mg tablet CORPAK SCH (16:52)
--- NOTE | 2019-02-18 17:46 | NUR ---
1610- Patient HR up to 170 rapid afib, dialysis in process, dialysis stopped pulling fluid around this time, call placed to Dr Dove, order to start cardizem gtt. 1730- spoke with brother Negrito, He is going to keep his phone on him tomorrow to be able to consent for paracentesis, updated him on patients status. HR remains 130's to 150's BP 80's over 50's.
[2019-02-18] MEDS: FENTANYL-0.9 % NACL/PF 100 ML IV PRN (18:10)
--- NOTE | 2019-02-18 18:15 | NUR ---
Patient in room CICU 2010. I have received report from NEMO Ruiz and had the opportunity to ask questions and assume patient care. Patient is currently receiving dialysis, set up mechanic crown assembly machine at bedside. Patient is intubated with FiO2 40% AC VC mode respiratory rate in the 30's. CVP 8. Heart rate rapid atrial fibrillation rate in the 140-170's. Cardizem infusing at 10mg/hr. Rapid rate started around 1610 today. Patient with Amiodarone infusing at 0.5mg/min, Levophed at 9 mcg/min and Fentanyl at 50 mcg/hr. During report patients heart rate down to 80 very briefly. Back up to 130's to 160's. Cardizem titrated per protocol to 10mg/hr. manufacturing baker aware. will continue to monitor.
--- NOTE | 2019-02-18 18:37 | NUR ---
Problems reprioritized. Patient report given, questions answered & plan of care reviewed with Evie.
[2019-02-18] MEDS ORDERED: metoprolol tartrate 1mg/ml inj IV ONE (20:10)
[2019-02-18] MEDS: lactulose 20gm/30ml cup CORPAK SCH (20:35)
[2019-02-18] MEDS: docusate sodium 100mg/10ml UD cup CORPAK SCH (20:35)
[2019-02-18] MEDS: lactobacillus rhamnosus 10,000 MMU CELLS/CAPSULE CORPAK SCH (20:36)
[2019-02-18] MEDS ORDERED: albumin (human) 25% 100 ML IV solution IV ONE (20:40)
[2019-02-18] MEDS: rifaximin 20mg/ml oral suspension 60 ML BOTTLE CORPAK SCH (20:55)
[2019-02-19] VITALS (26 sets, daily range): BP systolic 83–136; BP diastolic 38–59
[2019-02-19] MEDS: midodrine 5mg tablet CORPAK SCH ×3 (00:09→15:53)
[2019-02-19] MEDS: lactulose 20gm/30ml cup CORPAK SCH ×4 (01:57→19:57)
[2019-02-19] MEDS: mineral oil/petrolatum ophthal oint EACHEYE SCH ×4 (01:57→19:58)
[2019-02-19 03:03] LABS: BASOPHILS % (AUTO) 0.1 % (0-1); EOSINOPHILS % (AUTO) 0 % (0-6); LYMPHOCYTES # (AUTO) 0.3 X10'3 (1.1-4.8); LYMPHOCYTES % (AUTO) 1.1 % (21-51); MEAN CORPUSCULAR HEMOGLOBIN 28.3 PG (27.0-31.0); MEAN CORPUSCULAR HGB CONC 32.8 g/dL (33.0-36.5); MEAN CORPUSCULAR VOLUME 86.4 FL (78-98); MEAN PLATELET VOLUME 8.9 FL (7.4-10.4); MONOCYTES # (AUTO) 1.7 X10'3 (0-0.9); MONOCYTES % (AUTO) 7.5 % (2-12); NEUTROPHILS # (AUTO) 20.2 X10'3 (1.8-7.7); NEUTROPHILS % (AUTO) 91.3 % (42-75); PLATELET COUNT 170 X10'3 (140-440); RED BLOOD COUNT 2.46 X10'6 (4.70-6.10); RED CELL DISTRIBUTION WIDTH 20.1 % (11.5-14.5); WHITE BLOOD COUNT 22.2 X10'3 (4.5-11.0)
[2019-02-19 03:08] LABS: HEMATOCRIT 21.3 % (42.0-52.0)
[2019-02-19] MEDS: ipratropium/albuterol 3ml nebule NEB SCH ×6 (03:09→22:45)
--- NOTE | 2019-02-19 03:15 | NUR ---
Critical Hgb 7.0, Hct 21.3 reported to September NP. Elsy Will place orders for type and screen.
[2019-02-19 03:22] LABS: ALANINE AMINOTRANSFERASE 96 U/L (12-78); ALBUMIN 1.9 G/DL (3.4-5.0); ALBUMIN/GLOBULIN RATIO 0.5 (1.1-1.5); ALKALINE PHOSPHATASE 569 IU/L (46-116); ANION GAP 9 (8-16); ASPARTATE AMINO TRANSFERASE 106 U/L (10-37); BILIRUBIN,TOTAL 0.8 MG/DL (0.1-1.0); BLOOD UREA NITROGEN 58 MG/DL (7-18); BUN/CREATININE RATIO 33.5 (5.4-32.0); CALCIUM 7.7 MG/DL (8.5-10.1); CHLORIDE 98 MMOL/L (99-107); CREATININE 1.73 MG/DL (0.60-1.10); GLUCOSE 173 MG/DL (70-104); MAGNESIUM 1.8 MG/DL (1.5-2.4); PHOSPHORUS 5.3 MG/DL (2.3-4.5); POTASSIUM 3.7 MMOL/L (3.5-5.1); SODIUM 134 MMOL/L (135-145); TOTAL CARBON DIOXIDE 27.2 MMOL/L (24-32); TOTAL PROTEIN 5.9 G/DL (6.4-8.2); eGFR 41 ML/MIN
[2019-02-19 03:33] LABS: ANISOCYTOSIS 3+; PLATELET ESTIMATE NORMAL; TOTAL CELLS COUNTED 100
[2019-02-19 03:34] LABS: HYPOCHROMASIA 1+; LARGE PLATELETS FEW
[2019-02-19 03:39] LABS: POLYCHROMASIA 1+
[2019-02-19 03:56] LABS: ABG BASE EXCESS -1.7 mmol/L (-2.0-3.0); ABG HCO3 22.7 mmol/L (22.0-26.0); ABG OXYGEN SATURATION 89.3 % (95-98); ABG PCO2 (T) 39.6 mmHg (35.0-48.0); ABG PH (T) 7.383 (7.350-7.450); ABG PO2 (T) 69.3 mmHg (83-108); ALLEN'S TEST Positive; FCOHb 0.3 % (0.5-1.5); MINUTE VOLUME 10 L/min; PATIENT TEMPERATURE 38.5; PEEP 5 cm H2O; RESPIRATORY RATE 20 b/min; RESPIRATORY RATE (OBSERVED) 26 b/min; TIDAL VOLUME 400 mL; TOTAL HEMOGLOBIN 9.1 G/dl (14.0-18.0)
[2019-02-19] MEDS: esmolol/sodium cl bag 250 ML IV SCH ×3 (04:15→17:37)
[2019-02-19] MEDS ORDERED: acetaminophen 325mg/10.15ml oral unit dose solution PO PRN (04:35)
[2019-02-19] MEDS: NORepinephrine 8mg/ 250ml NS 250 ML IV SCH ×3 (05:39→20:57)
--- NOTE | 2019-02-19 06:30 | NUR ---
Problems reprioritized. Patient report given, questions answered & plan of care reviewed with NEMO Martines.
--- NOTE | 2019-02-19 07:07 | NUR ---
Patient in room CICU 2010. I have received report from NEMO Ward and had the opportunity to ask questions and assume patient care.
[2019-02-19] MEDS: docusate sodium 100mg/10ml UD cup CORPAK SCH ×2 (08:06→19:57)
[2019-02-19] MEDS: lactobacillus rhamnosus 10,000 MMU CELLS/CAPSULE CORPAK SCH ×2 (08:06→19:57)
[2019-02-19] MEDS: ferrous sulfate 300mg/5ml UD oral liquid CORPAK SCH ×3 (08:06→16:43)
[2019-02-19] MEDS: gabapentin 100mg capsule CORPAK SCH (08:06)
[2019-02-19] MEDS: ceftazidime 1000mg in D5W 50ml 50 ML IV SCH (08:06)
[2019-02-19] MEDS: ESOMEPRAZOLE 40 MG VIAL IV SCH (08:06)
[2019-02-19] MEDS: rifaximin 20mg/ml oral suspension 60 ML BOTTLE CORPAK SCH ×2 (08:07→20:56)
[2019-02-19] MEDS: amiodarone/D5 360MG/200ML BAG 200 ML IV SCH ×4 (08:08→19:59)
[2019-02-19] MEDS: NYSTATIN CREAM - 30GM TUBE TP SCH ×2 (08:19→19:58)
[2019-02-19 08:21] LABS: HEMATOCRIT 22.4 % (42.0-52.0); HEMOGLOBIN 7.2 g/dl (14.0-17.9); MEAN CORPUSCULAR HEMOGLOBIN 27.6 PG (27.0-31.0); MEAN CORPUSCULAR HGB CONC 32.2 g/dL (33.0-36.5); MEAN CORPUSCULAR VOLUME 85.8 FL (78-98); PLATELET COUNT 197 X10'3 (140-440); RED BLOOD COUNT 2.61 X10'6 (4.70-6.10); RED CELL DISTRIBUTION WIDTH 20.4 % (11.5-14.5); WHITE BLOOD COUNT 24.1 X10'3 (4.5-11.0)
[2019-02-19] MEDS ORDERED: MESSAGE TO PHARMACY PO ONE (08:45)
[2019-02-19] MEDS ORDERED: glucagon, human recombinant 1mg kit SUBCUT PRN (08:45)
[2019-02-19] MEDS ORDERED: dextrose 50%-water 50ml dispensing syringe IV PRN ×2 (08:45)
[2019-02-19] MEDS ORDERED: dextrose ORAL solution 15 GM/59 ML bottle PO PRN ×2 (08:45)
[2019-02-19] MEDS: ciprofloxacin lact 400MG/200ML 200 ML IV SCH (09:00)
--- NOTE | 2019-02-19 09:00 | NUR ---
Dr. Shin rounded on patient. Concerns of Afib with HR in 130-150s was address. Precedex gtt was ordered to be started per protocol with weaning of fentanyl so that patient will be able to speak about plan of care. Patient will also be restarted on hyperglycemia protocol.
--- NOTE | 2019-02-19 10:30 | NUR ---
Rounds perform with multidisciplinary team. Dr. Shin ordered hydrocortisone IV 100 mg Q6hr be started. Problems were discussed and plan of care updated.
[2019-02-19] MEDS: FENTANYL-0.9 % NACL/PF 100 ML IV PRN (10:46)
[2019-02-19] MEDS: dexmedetomidin/NS 400mcg/100ml 100 ML IV SCH ×3 (10:46→20:58)
[2019-02-19] MEDS ORDERED: dextrose ORAL solution 15 GM/59 ML bottle CORPAK PRN ×2 (11:02→11:03)
--- NOTE | 2019-02-19 11:42 | NUR ---
reassessment: Pt tolerating TF at goal; rectal tube 300ml output w/ continuous output per RN. -300ml from HD per RN pending paracentesis as well. Pt MAP 65 and drops from 58-60 at nights on multiple pressors and starting hydromorphone today per RN/MD. RD d/w MD regarding ASPEN guidelines for nutrition support if MAP <60; MD aware and OK w/ continued nutrition support given liver hx. Will continue to monitor for TF tolerance. Rec: 1. NGTF using Vital High Protein at 90ml/hr goal; to provide 2160ml fluid, 2160kcals, 1750ml free water, and 189g protein. 2. 100 ml Q4H per MD 3. prealbumin Q /, daily wts 4. routine bowel care as needed, hold with moderate rectal tube output 5. Advance diet as medically indicated when can pass swallow heart healthy/carb controlled per TAR AND AMMONIA PUMP OPERATOR recommendations Addendum: 02/19/19 at [address] Amended: Links added.
--- NOTE | 2019-02-19 12:00 | NUR ---
Patient dressings on abdomen changed. Scant drainage present on midline abdomen dressing before being changed with petroleum gauze and covered with adherent foam dressing. Right side abdomen dressing replaced with adherant foam dressing. Both clean, dry and intact.
[2019-02-19] MEDS: hydrocortisone sod succ/PF 100mg/2ml inj. IV SCH ×2 (14:04→19:57)
[2019-02-19] MEDS: acetaminophen 325mg/10.15ml oral unit dose solution CORPAK PRN (14:04)
[2019-02-19] MEDS: insulin regular, human vial - multi-dose SQ SCH ×2 (15:08→21:04)
[2019-02-19] MEDS: albumin (human) 25% 100ml IV 100 ML IV PRN ×7 (15:13→16:27)
--- NOTE | 2019-02-19 15:15 | NUR ---
CELESTE TORRES came and perform paracentesis. Took off 6600 mL from abdomen, insertion site was left lower abdomen.
--- NOTE | 2019-02-19 15:32 | NUR ---
Pt has cirrhosis and is an HD pt with hypotensive episodes during HD. Pt is not thriving. He has been intubated since Monday and is not a candidate at this time for extubation. 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 His current WBC is over 22,000. Wound care recommendations will continue with sacral optifoam in place and turning Q1-2 hours. Addendum: 02/19/19 at 1533 by Juany Zayas RN Amended: Links added.
[2019-02-19] MEDS ORDERED: VANCOMYCIN 1,500MG inj. 1,500 MG in normal saline 250ml IV soln 280 ML IV ONE (15:50)
--- NOTE | 2019-02-19 16:00 | NUR ---
Patient given 700mL of albumin following paracentesis per orders from Dr. Shin. Patient BP tolerating well. Will continue to monitor.
--- NOTE | 2019-02-19 18:20 | NUR ---
Patient in room CICU 2010. I have received report from Bobbi RN and Kalpesh RN and had the opportunity to ask questions and assume patient care. Patient is sedated and intubated currently on the ventilator at 40% FiO2. Patient have a fever of 38.2 *C. Ice packs in place, temperature turned down in room. Tylenol administered. Will continue to monitor. Patient is currently on Precedex for sedation and Fentanyl for pain control. Amiodarone to control atrial fibrillation and Levophed for blood pressure support. All infusions running through right upper arm PICC. Rectal tube in place. Patient in anuric. Will continue to monitor.
--- NOTE | 2019-02-19 18:22 | NUR ---
Problems reprioritized. Patient report given, questions answered & plan of care reviewed with NEMO Case.
[2019-02-19] MEDS: insulin glargine (Lantus) pen - multi-dose SQ SCH (21:07)
[2019-02-20] VITALS (29 sets, daily range): BP systolic 92–129; BP diastolic 48–66
[2019-02-20] MEDS: esmolol/sodium cl bag 250 ML IV SCH ×2 (00:15→20:53)
[2019-02-20] MEDS: midodrine 5mg tablet CORPAK SCH ×3 (00:33→16:51)
[2019-02-20] MEDS: mineral oil/petrolatum ophthal oint EACHEYE SCH ×4 (02:34→19:40)
[2019-02-20] MEDS: lactulose 20gm/30ml cup CORPAK SCH ×4 (02:34→19:38)
[2019-02-20] MEDS: hydrocortisone sod succ/PF 100mg/2ml inj. IV SCH ×4 (02:34→19:38)
[2019-02-20] MEDS: insulin regular, human vial - multi-dose SQ SCH ×4 (02:37→20:31)
[2019-02-20] MEDS: ipratropium/albuterol 3ml nebule NEB SCH ×6 (02:41→23:36)
[2019-02-20 03:00] LABS: ABG BASE EXCESS -4.6 mmol/L (-2.0-3.0); ABG HCO3 19.8 mmol/L (22.0-26.0); ABG OXYGEN SATURATION 86.1 % (95-98); ABG PCO2 (T) 34.7 mmHg (35.0-48.0); ABG PH (T) 7.376 (7.350-7.450); ALLEN'S TEST Positive; FCOHb 0.3 % (0.5-1.5); FMetHb 0.3 % (0.3-1.12); FO2Hb 85.6 % (94-100); MINUTE VOLUME 9 L/min; PATIENT TEMPERATURE 37.4; PEEP 5 cm H2O; RESPIRATORY RATE 20 b/min; RESPIRATORY RATE (OBSERVED) 23 b/min; TIDAL VOLUME 400 mL; TOTAL HEMOGLOBIN 9.7 G/dl (14.0-18.0)
[2019-02-20 03:22] LABS: BASOPHILS % (AUTO) 0.1 % (0-1); EOSINOPHILS % (AUTO) 0 % (0-6); LYMPHOCYTES # (AUTO) 0.2 X10'3 (1.1-4.8); LYMPHOCYTES % (AUTO) 1.3 % (21-51); MEAN CORPUSCULAR HEMOGLOBIN 27.8 PG (27.0-31.0); MEAN CORPUSCULAR HGB CONC 32.4 g/dL (33.0-36.5); MEAN CORPUSCULAR VOLUME 85.7 FL (78-98); MEAN PLATELET VOLUME 8.9 FL (7.4-10.4); MONOCYTES # (AUTO) 0.8 X10'3 (0-0.9); MONOCYTES % (AUTO) 6.1 % (2-12); NEUTROPHILS # (AUTO) 12.9 X10'3 (1.8-7.7); NEUTROPHILS % (AUTO) 92.5 % (42-75); PLATELET COUNT 137 X10'3 (140-440); RED BLOOD COUNT 2.33 X10'6 (4.70-6.10); RED CELL DISTRIBUTION WIDTH 20.7 % (11.5-14.5)
--- NOTE | 2019-02-20 03:25 | NUR ---
Critical Hgb 6.5 & Hct 20.0 results called to Eloina Chin NP. Advised to look in chart for blood consent and call her back with next of kin who is his brother who lives in [place] phone number.
[2019-02-20 03:27] LABS: HEMOGLOBIN 6.5 g/dl (14.0-17.9)
[2019-02-20 03:31] LABS: ALANINE AMINOTRANSFERASE 99 U/L (12-78); ALBUMIN/GLOBULIN RATIO 0.9 (1.1-1.5); ALKALINE PHOSPHATASE 446 IU/L (46-116); ANION GAP 17 (8-16); ASPARTATE AMINO TRANSFERASE 103 U/L (10-37); BILIRUBIN,TOTAL 0.9 MG/DL (0.1-1.0); BLOOD UREA NITROGEN 92 MG/DL (7-18); BUN/CREATININE RATIO 40.4 (5.4-32.0); CALCIUM 7.4 MG/DL (8.5-10.1); CHLORIDE 94 MMOL/L (99-107); CREATININE 2.28 MG/DL (0.60-1.10); GLUCOSE 227 MG/DL (70-104); MAGNESIUM 1.8 MG/DL (1.5-2.4); PHOSPHORUS 7.6 MG/DL (2.3-4.5); POTASSIUM 4.3 MMOL/L (3.5-5.1); SODIUM 133 MMOL/L (135-145); TOTAL CARBON DIOXIDE 22.3 MMOL/L (24-32); TOTAL PROTEIN 6.3 G/DL (6.4-8.2); eGFR 30 ML/MIN
[2019-02-20 03:55] LABS: PLATELET ESTIMATE DECREASED
[2019-02-20 03:56] LABS: ANISOCYTOSIS 3+; HYPOCHROMASIA 1+; POLYCHROMASIA FEW; TARGET CELLS FEW
[2019-02-20 03:57] LABS: ELLIPTOCYTES FEW
[2019-02-20] MEDS: dexmedetomidin/NS 400mcg/100ml 100 ML IV SCH ×4 (04:50→22:12)
[2019-02-20] MEDS: amiodarone/D5 360MG/200ML BAG 200 ML IV SCH ×3 (04:52→18:38)
[2019-02-20] MEDS: ESOMEPRAZOLE 40 MG VIAL IV SCH (07:45)
[2019-02-20] MEDS: ceftazidime 1000mg in D5W 50ml 50 ML IV SCH (07:45)
[2019-02-20] MEDS: ferrous sulfate 300mg/5ml UD oral liquid CORPAK SCH ×3 (07:46→17:30)
[2019-02-20] MEDS: gabapentin 100mg capsule CORPAK SCH (07:46)
[2019-02-20] MEDS: rifaximin 20mg/ml oral suspension 60 ML BOTTLE CORPAK SCH ×2 (07:47→19:39)
[2019-02-20] MEDS: lactobacillus rhamnosus 10,000 MMU CELLS/CAPSULE CORPAK SCH ×2 (07:47→19:38)
[2019-02-20] MEDS: docusate sodium 100mg/10ml UD cup CORPAK SCH ×2 (07:48→19:38)
[2019-02-20] MEDS: NYSTATIN CREAM - 30GM TUBE TP SCH ×2 (07:49→19:40)
[2019-02-20] MEDS: ciprofloxacin lact 400MG/200ML 200 ML IV SCH (08:51)
[2019-02-20] MEDS ORDERED: epoetin 20,000 units/ml inj IV ONE (08:55)
[2019-02-20] MEDS ORDERED: albumin (Human) 5% 250ml 250 ML IV PRN (08:55)
[2019-02-20] MEDS ORDERED: heparin 1,000 units/ml 10ml inj HE ONE ×2 (09:00)
[2019-02-20 10:11] LABS: MEAN CORPUSCULAR HEMOGLOBIN 28.6 PG (27.0-31.0); MEAN CORPUSCULAR HGB CONC 33.7 g/dL (33.0-36.5); MEAN CORPUSCULAR VOLUME 84.8 FL (78-98); MEAN PLATELET VOLUME 8.4 FL (7.4-10.4); PLATELET COUNT 113 X10'3 (140-440); RED BLOOD COUNT 2.32 X10'6 (4.70-6.10); RED CELL DISTRIBUTION WIDTH 18.9 % (11.5-14.5); WHITE BLOOD COUNT 10.7 X10'3 (4.5-11.0)
[2019-02-20 10:14] LABS: HEMOGLOBIN 6.6 g/dl (14.0-17.9)
[2019-02-20 10:15] LABS: HEMATOCRIT 19.7 % (42.0-52.0)
[2019-02-20 15:13] LABS: HEMATOCRIT 23.1 % (42.0-52.0); HEMOGLOBIN 7.7 g/dl (14.0-17.9); MEAN CORPUSCULAR HEMOGLOBIN 27.9 PG (27.0-31.0); MEAN CORPUSCULAR HGB CONC 33.3 g/dL (33.0-36.5); MEAN CORPUSCULAR VOLUME 83.9 FL (78-98); MEAN PLATELET VOLUME 8.6 FL (7.4-10.4); PLATELET COUNT 117 X10'3 (140-440); RED BLOOD COUNT 2.75 X10'6 (4.70-6.10); RED CELL DISTRIBUTION WIDTH 18.3 % (11.5-14.5); WHITE BLOOD COUNT 13.3 X10'3 (4.5-11.0)
--- NOTE | 2019-02-20 18:18 | NUR ---
Problems reprioritized. Patient report given, questions answered & plan of care reviewed with NEMO Ward.
[2019-02-20] MEDS: FENTANYL-0.9 % NACL/PF 100 ML IV PRN (19:41)
[2019-02-20] MEDS: insulin glargine (Lantus) pen - multi-dose SQ SCH (20:33)
--- NOTE | 2019-02-20 20:40 | NUR ---
September BRAYDEN Chin notified that patient had a rhythm change to atrial fibrillation. Currently 90-114 for a rate. Orders for CMP with [facility] lab draw
[2019-02-20 21:25] LABS: ALANINE AMINOTRANSFERASE 123 U/L (12-78); ALBUMIN 2.3 G/DL (3.4-5.0); ALBUMIN/GLOBULIN RATIO 0.8 (1.1-1.5); ALKALINE PHOSPHATASE 412 IU/L (46-116); ANION GAP 12 (8-16); ASPARTATE AMINO TRANSFERASE 130 U/L (10-37); BILIRUBIN,TOTAL 1.1 MG/DL (0.1-1.0); BLOOD UREA NITROGEN 49 MG/DL (7-18); BUN/CREATININE RATIO 38.9 (5.4-32.0); CALCIUM 7.1 MG/DL (8.5-10.1); CHLORIDE 104 MMOL/L (99-107); CREATININE 1.26 MG/DL (0.60-1.10); GLUCOSE 200 MG/DL (70-104); MAGNESIUM 1.4 MG/DL (1.5-2.4); SODIUM 138 MMOL/L (135-145); TOTAL CARBON DIOXIDE 21.8 MMOL/L (24-32); TOTAL PROTEIN 5.2 G/DL (6.4-8.2); eGFR 59 ML/MIN
[2019-02-20 21:30] LABS: POTASSIUM 2.9 MMOL/L (3.5-5.1)
--- NOTE | 2019-02-20 21:35 | NUR ---
Critical Potassium 2.9. Eloina Chin NP notified of results. Patient had dialysis today. Per Eloina Chin NP do not replace at this time she will review chart and place order if needing replacement. Will continue to monitor. Addendum: 02/20/19 at 2138 by Sylvia Vasquez RN Also notified of Magnesium of 1.4. Okay to replace with 2 gm in 50ml.
[2019-02-20] MEDS: NORepinephrine 8mg/ 250ml NS 250 ML IV SCH (22:10)
[2019-02-21] VITALS (24 sets, daily range): BP systolic 85–116; BP diastolic 51–65
[2019-02-21] MEDS: midodrine 5mg tablet CORPAK SCH ×3 (00:30→15:23)
[2019-02-21] MEDS: amiodarone/D5 360MG/200ML BAG 200 ML IV SCH ×4 (00:42→18:54)
[2019-02-21] MEDS: mineral oil/petrolatum ophthal oint EACHEYE SCH ×4 (01:59→19:56)
[2019-02-21] MEDS: lactulose 20gm/30ml cup CORPAK SCH ×4 (01:59→19:54)
[2019-02-21] MEDS: hydrocortisone sod succ/PF 100mg/2ml inj. IV SCH ×4 (01:59→19:55)
[2019-02-21] MEDS: insulin regular, human vial - multi-dose SQ SCH ×4 (02:19→20:35)
--- NOTE | 2019-02-21 03:00 | NUR ---
Patient has been more alert during the night. Is able to answer questions with yes and no. Patient appears uncomfortable, patient answers yes to pain questions. Patient questioned on location of pain. Nods head yes to back pain. Patient repositioned and Fentanyl bolus administered with pain relief. Patient tolerated bed bath well, bandages over wounds assessed and replaced as necessary. Core pack re taped.
[2019-02-21] MEDS: ipratropium/albuterol 3ml nebule NEB SCH ×6 (03:22→23:55)
[2019-02-21] MEDS: dexmedetomidin/NS 400mcg/100ml 100 ML IV SCH ×2 (03:31→18:04)
[2019-02-21] MEDS: esmolol/sodium cl bag 250 ML IV SCH ×3 (03:42→17:20)
[2019-02-21 04:21] LABS: ABG BASE EXCESS -0.1 mmol/L (-2.0-3.0); ABG HCO3 23.8 mmol/L (22.0-26.0); ABG OXYGEN SATURATION 92.7 % (95-98); ABG PCO2 (T) 35.1 mmHg (35.0-48.0); ABG PH (T) 7.448 (7.350-7.450); ABG PO2 (T) 65.3 mmHg (83-108); ALLEN'S TEST Positive; FCOHb 0.3 % (0.5-1.5); FMetHb 0.1 % (0.3-1.12); FO2Hb 92.3 % (94-100); MINUTE VOLUME 10 L/min; PATIENT TEMPERATURE 36.4; PEEP 5 cm H2O; RESPIRATORY RATE (OBSERVED) 19 b/min; TOTAL HEMOGLOBIN 9.8 G/dl (14.0-18.0)
[2019-02-21 04:31] LABS: BASOPHILS % (AUTO) 0.1 % (0-1); EOSINOPHILS % (AUTO) 0 % (0-6); HEMATOCRIT 25.5 % (42.0-52.0); HEMOGLOBIN 8.5 g/dl (14.0-17.9); LYMPHOCYTES # (AUTO) 0.2 X10'3 (1.1-4.8); LYMPHOCYTES % (AUTO) 1.6 % (21-51); MEAN CORPUSCULAR HGB CONC 33.2 g/dL (33.0-36.5); MEAN CORPUSCULAR VOLUME 84.4 FL (78-98); MEAN PLATELET VOLUME 8.8 FL (7.4-10.4); MONOCYTES # (AUTO) 0.9 X10'3 (0-0.9); MONOCYTES % (AUTO) 6.2 % (2-12); NEUTROPHILS # (AUTO) 12.6 X10'3 (1.8-7.7); NEUTROPHILS % (AUTO) 92.1 % (42-75); PLATELET COUNT 131 X10'3 (140-440); RED BLOOD COUNT 3.02 X10'6 (4.70-6.10); RED CELL DISTRIBUTION WIDTH 18.3 % (11.5-14.5); WHITE BLOOD COUNT 13.7 X10'3 (4.5-11.0)
[2019-02-21 04:44] LABS: ALANINE AMINOTRANSFERASE 164 U/L (12-78); ALBUMIN 2.5 G/DL (3.4-5.0); ALBUMIN/GLOBULIN RATIO 0.8 (1.1-1.5); ALKALINE PHOSPHATASE 465 IU/L (46-116); ANION GAP 12 (8-16); ASPARTATE AMINO TRANSFERASE 173 U/L (10-37); BILIRUBIN,TOTAL 0.8 MG/DL (0.1-1.0); BLOOD UREA NITROGEN 61 MG/DL (7-18); BUN/CREATININE RATIO 39.6 (5.4-32.0); CALCIUM 8.4 MG/DL (8.5-10.1); CHLORIDE 98 MMOL/L (99-107); CREATININE 1.54 MG/DL (0.60-1.10); GLUCOSE 164 MG/DL (70-104); MAGNESIUM 2.2 MG/DL (1.5-2.4); PHOSPHORUS 4.9 MG/DL (2.3-4.5); POTASSIUM 3.4 MMOL/L (3.5-5.1); PREALBUMIN 9.9 MG/DL (19-36); SODIUM 135 MMOL/L (135-145); TOTAL CARBON DIOXIDE 24.6 MMOL/L (24-32); TOTAL PROTEIN 5.6 G/DL (6.4-8.2); VANCOMYCIN,RANDOM 17.2 UG/ML; eGFR 47 ML/MIN
--- NOTE | 2019-02-21 06:23 | NUR ---
Problems reprioritized. Patient report given, questions answered & plan of care reviewed with NEMO Allison.
[2019-02-21] MEDS: docusate sodium 100mg/10ml UD cup CORPAK SCH ×2 (07:33→19:55)
[2019-02-21] MEDS: ceftazidime 1000mg in D5W 50ml 50 ML IV SCH (07:50)
[2019-02-21] MEDS: ciprofloxacin lact 400MG/200ML 200 ML IV SCH (07:50)
[2019-02-21] MEDS: lactobacillus rhamnosus 10,000 MMU CELLS/CAPSULE CORPAK SCH ×2 (07:51→19:55)
[2019-02-21] MEDS: ferrous sulfate 300mg/5ml UD oral liquid CORPAK SCH ×3 (07:51→18:04)
[2019-02-21] MEDS: NYSTATIN CREAM - 30GM TUBE TP SCH ×2 (07:51→19:57)
[2019-02-21] MEDS: gabapentin 100mg capsule CORPAK SCH (07:51)
[2019-02-21] MEDS: ESOMEPRAZOLE 40 MG VIAL IV SCH (07:52)
[2019-02-21] MEDS: rifaximin 20mg/ml oral suspension 60 ML BOTTLE CORPAK SCH ×2 (07:52→19:56)
--- NOTE | 2019-02-21 12:15 | NUR ---
F/u: Pt extubated in AM NG remains in tolerating TF at goal. Pt wants full code so may need future trach/PEG per MD. PALB slight increase from prior though liver hx w/ 6600ml removal from paracentesis. 700ml stool output on colace and lactulose; to continue per MD. Will monitor for TF tolerance and long-term PEG recs. Rec: 1. NGTF using Vital High Protein at 90ml/hr goal; to provide 2160ml fluid, 2160kcals, 1750ml free water, and 189g protein. 2. additional free water per tank storage supervisor on HD 3. prealbumin Q M/, daily wts 4. routine bowel care as needed, hold with moderate rectal tube output 5. Advance diet as medically indicated when can pass swallow heart healthy/carb controlled per [employer] recommendations Addendum: 02/21/19 at [address] Amended: Links added.
--- NOTE | 2019-02-21 18:30 | NUR ---
Patient in room CICU 2010. I have received report from Keegan CHESTER and had the opportunity to ask questions and assume patient care.
[2019-02-21] MEDS: insulin glargine (Lantus) pen - multi-dose SQ SCH (20:38)
[2019-02-22] VITALS (26 sets, daily range): BP systolic 81–136; BP diastolic 36–71
--- NOTE | 2019-02-22 | NUR ---
pt converted to sinus rhythm at this time. rate in 70-80's. ectopy continues.
[2019-02-22] MEDS: esmolol/sodium cl bag 250 ML IV SCH ×4 (00:09→20:36)
[2019-02-22] MEDS: midodrine 5mg tablet CORPAK SCH ×4 (01:05→23:47)
[2019-02-22] MEDS: hydrocortisone sod succ/PF 100mg/2ml inj. IV SCH ×4 (02:25→21:03)
[2019-02-22] MEDS: mineral oil/petrolatum ophthal oint EACHEYE SCH ×4 (02:25→21:02)
[2019-02-22] MEDS: lactulose 20gm/30ml cup CORPAK SCH ×4 (02:25→21:03)
[2019-02-22] MEDS: amiodarone/D5 360MG/200ML BAG 200 ML IV SCH ×2 (02:25→07:02)
[2019-02-22] MEDS: insulin regular, human vial - multi-dose SQ SCH ×4 (02:42→21:25)
[2019-02-22] MEDS: ipratropium/albuterol 3ml nebule NEB SCH ×6 (03:36→23:00)
[2019-02-22 04:03] LABS: BASOPHILS % (AUTO) 0.1 % (0-1); EOSINOPHILS % (AUTO) 0 % (0-6); HEMATOCRIT 27.5 % (42.0-52.0); HEMOGLOBIN 8.9 g/dl (14.0-17.9); LYMPHOCYTES # (AUTO) 0.2 X10'3 (1.1-4.8); LYMPHOCYTES % (AUTO) 1.5 % (21-51); MEAN CORPUSCULAR HEMOGLOBIN 27.5 PG (27.0-31.0); MEAN CORPUSCULAR HGB CONC 32.2 g/dL (33.0-36.5); MEAN CORPUSCULAR VOLUME 85.4 FL (78-98); MEAN PLATELET VOLUME 9.5 FL (7.4-10.4); MONOCYTES # (AUTO) 0.9 X10'3 (0-0.9); MONOCYTES % (AUTO) 6.5 % (2-12); NEUTROPHILS # (AUTO) 12.1 X10'3 (1.8-7.7); NEUTROPHILS % (AUTO) 91.9 % (42-75); PLATELET COUNT 144 X10'3 (140-440); RED BLOOD COUNT 3.22 X10'6 (4.70-6.10); RED CELL DISTRIBUTION WIDTH 18.8 % (11.5-14.5); WHITE BLOOD COUNT 13.1 X10'3 (4.5-11.0)
[2019-02-22 04:10] LABS: ALANINE AMINOTRANSFERASE 294 U/L (12-78); ALBUMIN 2.2 G/DL (3.4-5.0); ALBUMIN/GLOBULIN RATIO 0.7 (1.1-1.5); ALKALINE PHOSPHATASE 495 IU/L (46-116); ANION GAP 14 (8-16); ASPARTATE AMINO TRANSFERASE 303 U/L (10-37); BILIRUBIN,TOTAL 0.7 MG/DL (0.1-1.0); BLOOD UREA NITROGEN 91 MG/DL (7-18); BUN/CREATININE RATIO 48.1 (5.4-32.0); CALCIUM 8.3 MG/DL (8.5-10.1); CHLORIDE 95 MMOL/L (99-107); CREATININE 1.89 MG/DL (0.60-1.10); GLUCOSE 185 MG/DL (70-104); PHOSPHORUS 6.2 MG/DL (2.3-4.5); POTASSIUM 3.4 MMOL/L (3.5-5.1); SODIUM 133 MMOL/L (135-145); TOTAL CARBON DIOXIDE 23.6 MMOL/L (24-32); TOTAL PROTEIN 5.4 G/DL (6.4-8.2); VANCOMYCIN,RANDOM 14.6 UG/ML; eGFR 37 ML/MIN
[2019-02-22 04:46] LABS: ANISOCYTOSIS 2+; PLATELET ESTIMATE NORMAL; TOTAL CELLS COUNTED 100
[2019-02-22 04:47] LABS: POLYCHROMASIA FEW; SPHEROCYTES FEW; TARGET CELLS FEW
[2019-02-22 04:48] LABS: POIKILOCYTOSIS FEW
[2019-02-22] MEDS: dexmedetomidin/NS 400mcg/100ml 100 ML IV SCH ×3 (05:40→23:47)
--- NOTE | 2019-02-22 06:39 | NUR ---
Problems reprioritized. Patient report given, questions answered & plan of care reviewed with Keegan CHESTER.
[2019-02-22] MEDS: rifaximin 20mg/ml oral suspension 60 ML BOTTLE CORPAK SCH ×2 (07:36→21:03)
[2019-02-22] MEDS: NYSTATIN CREAM - 30GM TUBE TP SCH ×2 (07:36→21:03)
[2019-02-22] MEDS: ESOMEPRAZOLE 40 MG VIAL IV SCH (07:36)
[2019-02-22] MEDS: lactobacillus rhamnosus 10,000 MMU CELLS/CAPSULE CORPAK SCH ×2 (07:36→21:02)
[2019-02-22] MEDS: gabapentin 100mg capsule CORPAK SCH (07:36)
[2019-02-22] MEDS: ferrous sulfate 300mg/5ml UD oral liquid CORPAK SCH ×3 (07:36→17:01)
[2019-02-22] MEDS: ceftazidime 1000mg in D5W 50ml 50 ML IV SCH (07:37)
[2019-02-22] MEDS: ciprofloxacin lact 400MG/200ML 200 ML IV SCH (07:37)
[2019-02-22] MEDS: docusate sodium 100mg/10ml UD cup CORPAK SCH ×2 (08:00→21:03)
[2019-02-22] MEDS ORDERED: epoetin 20,000 units/ml inj IV ONE (08:55)
[2019-02-22] MEDS ORDERED: albumin (Human) 5% 250ml 250 ML IV PRN (08:55)
[2019-02-22] MEDS ORDERED: heparin 1,000 units/ml 10ml inj HE ONE ×2 (09:00)
[2019-02-22] MEDS: amiodarone 200mg tablet PO SCH ×2 (11:06→21:02)
--- NOTE | 2019-02-22 12:50 | NUR ---
Patient report given to Kaleigh CHESTER; all questions answered.
[2019-02-22] MEDS: NORepinephrine 8mg/ 250ml NS 250 ML IV SCH (14:44)
[2019-02-22] MEDS: acetaminophen 325mg/10.15ml oral unit dose solution CORPAK PRN (17:29)
--- NOTE | 2019-02-22 18:39 | NUR ---
Problems reprioritized. Patient report given, questions answered & plan of care reviewed with NEMO Smith.
--- NOTE | 2019-02-22 18:39 | NUR ---
SBP decreased to 80's with MAP <55 around 1500. Levophed gtt initiated. Tolerating gtt well. Paracentesis performed at bedside @ 1515. Removed 5,500mL. Pt tolerated well. Currently doing HD. BP tolerating while on Levophed @ 6. Medicated with Tylenol x1 for generalized pain with positive result.
--- NOTE | 2019-02-22 18:40 | NUR ---
Patient in room CICU 2010. I have received report from Dang CHESTER and had the opportunity to ask questions and assume patient care.
[2019-02-22] MEDS: insulin glargine (Lantus) pen - multi-dose SQ SCH (21:25)
[2019-02-23] VITALS (24 sets, daily range): BP systolic 98–129; BP diastolic 47–76
[2019-02-23] MEDS: ipratropium/albuterol 3ml nebule NEB SCH ×8 (00:03→23:07)
[2019-02-23] MEDS: mineral oil/petrolatum ophthal oint EACHEYE SCH ×4 (02:43→19:27)
[2019-02-23] MEDS: lactulose 20gm/30ml cup CORPAK SCH ×4 (02:43→19:27)
[2019-02-23] MEDS: hydrocortisone sod succ/PF 100mg/2ml inj. IV SCH ×4 (02:43→19:27)
[2019-02-23] MEDS: insulin regular, human vial - multi-dose SQ SCH ×4 (02:47→19:54)
[2019-02-23] MEDS: esmolol/sodium cl bag 250 ML IV SCH ×4 (02:49→22:23)
[2019-02-23 03:16] LABS: BASOPHILS % (AUTO) 0.1 % (0-1); EOSINOPHILS % (AUTO) 0 % (0-6); HEMATOCRIT 28.1 % (42.0-52.0); HEMOGLOBIN 9.6 g/dl (14.0-17.9); LYMPHOCYTES # (AUTO) 0.3 X10'3 (1.1-4.8); LYMPHOCYTES % (AUTO) 1.4 % (21-51); MEAN CORPUSCULAR HEMOGLOBIN 28.9 PG (27.0-31.0); MEAN CORPUSCULAR HGB CONC 34.3 g/dL (33.0-36.5); MEAN CORPUSCULAR VOLUME 84.2 FL (78-98); MEAN PLATELET VOLUME 9.3 FL (7.4-10.4); MONOCYTES # (AUTO) 1.6 X10'3 (0-0.9); MONOCYTES % (AUTO) 8.7 % (2-12); NEUTROPHILS % (AUTO) 89.8 % (42-75); PLATELET COUNT 167 X10'3 (140-440); RED BLOOD COUNT 3.34 X10'6 (4.70-6.10); RED CELL DISTRIBUTION WIDTH 18.6 % (11.5-14.5); WHITE BLOOD COUNT 17.9 X10'3 (4.5-11.0)
[2019-02-23 03:31] LABS: ALANINE AMINOTRANSFERASE 374 U/L (12-78); ALBUMIN 2.3 G/DL (3.4-5.0); ALBUMIN/GLOBULIN RATIO 0.7 (1.1-1.5); ALKALINE PHOSPHATASE 546 IU/L (46-116); ANION GAP 10 (8-16); ASPARTATE AMINO TRANSFERASE 210 U/L (10-37); BILIRUBIN,TOTAL 0.9 MG/DL (0.1-1.0); BLOOD UREA NITROGEN 61 MG/DL (7-18); BUN/CREATININE RATIO 45.2 (5.4-32.0); CALCIUM 8.1 MG/DL (8.5-10.1); CHLORIDE 100 MMOL/L (99-107); CREATININE 1.35 MG/DL (0.60-1.10); GLUCOSE 105 MG/DL (70-104); MAGNESIUM 1.9 MG/DL (1.5-2.4); PHOSPHORUS 4.4 MG/DL (2.3-4.5); POTASSIUM 3.8 MMOL/L (3.5-5.1); SODIUM 136 MMOL/L (135-145); TOTAL CARBON DIOXIDE 26.5 MMOL/L (24-32); TOTAL PROTEIN 5.5 G/DL (6.4-8.2); eGFR 55 ML/MIN
[2019-02-23 03:58] LABS: ANISOCYTOSIS 2+; PLATELET ESTIMATE NORMAL; TOTAL CELLS COUNTED 100
[2019-02-23 03:59] LABS: POLYCHROMASIA FEW; TARGET CELLS FEW; TOXIC GRANULATION 1+
--- NOTE | 2019-02-23 06:29 | NUR ---
Problems reprioritized. Patient report given, questions answered & plan of care reviewed with Dang CHESTER.
[2019-02-23] MEDS: ferrous sulfate 300mg/5ml UD oral liquid CORPAK SCH ×3 (07:58→17:24)
[2019-02-23] MEDS: gabapentin 100mg capsule CORPAK SCH (07:58)
[2019-02-23] MEDS: amiodarone 200mg tablet PO SCH ×2 (07:58→19:27)
[2019-02-23] MEDS: docusate sodium 100mg/10ml UD cup CORPAK SCH ×2 (07:58→19:27)
[2019-02-23] MEDS: lactobacillus rhamnosus 10,000 MMU CELLS/CAPSULE CORPAK SCH ×2 (07:58→19:27)
[2019-02-23] MEDS: midodrine 5mg tablet CORPAK SCH ×3 (07:59→23:57)
[2019-02-23] MEDS: ESOMEPRAZOLE 40 MG VIAL IV SCH (08:26)
[2019-02-23] MEDS: ceftazidime 1000mg in D5W 50ml 50 ML IV SCH (08:36)
[2019-02-23] MEDS: NYSTATIN CREAM - 30GM TUBE TP SCH ×2 (08:43→19:28)
[2019-02-23] MEDS: rifaximin 20mg/ml oral suspension 60 ML BOTTLE CORPAK SCH ×2 (08:50→19:27)
[2019-02-23] MEDS: oxyCODONE IR 5mg (immed. release) tablet CORPAK PRN ×2 (09:33→19:28)
[2019-02-23] MEDS: ciprofloxacin lact 400MG/200ML 200 ML IV SCH (09:34)
[2019-02-23] MEDS: dexmedetomidin/NS 400mcg/100ml 100 ML IV SCH ×3 (15:12→22:23)
--- NOTE | 2019-02-23 17:25 | NUR ---
O2 sat declining to high 80's after increasing O2 from 1-4L NC. Pt sounding wet in his throat the past few hours but refusing to be suctioned. Was refusing breathing treatments this AM. Pt allowed RT to deep suction him this afternoon but no change in breathing or improvement in sats. RT placed pt on Bipap. Precedex increased for comfort d/t pt getting anxious.
[2019-02-23] MEDS: ALPRAZolam 0.25mg tablet CORPAK PRN (19:28)
[2019-02-23] MEDS: acetaminophen 325mg/10.15ml oral unit dose solution CORPAK PRN (19:28)
[2019-02-23] MEDS: insulin glargine (Lantus) pen - multi-dose SQ SCH (19:51)
[2019-02-24] VITALS (24 sets, daily range): BP systolic 88–128; BP diastolic 49–72
[2019-02-24] MEDS: mineral oil/petrolatum ophthal oint EACHEYE SCH ×4 (01:46→20:00)
[2019-02-24] MEDS: hydrocortisone sod succ/PF 100mg/2ml inj. IV SCH ×4 (01:46→20:00)
[2019-02-24] MEDS: lactulose 20gm/30ml cup CORPAK SCH ×4 (01:46→20:37)
[2019-02-24] MEDS: insulin regular, human vial - multi-dose SQ SCH ×4 (02:15→21:22)
[2019-02-24 02:36] LABS: BASOPHILS % (AUTO) 0.1 % (0-1); EOSINOPHILS % (AUTO) 0 % (0-6); HEMATOCRIT 30.1 % (42.0-52.0); HEMOGLOBIN 9.9 g/dl (14.0-17.9); LYMPHOCYTES # (AUTO) 0.2 X10'3 (1.1-4.8); LYMPHOCYTES % (AUTO) 1.3 % (21-51); MEAN CORPUSCULAR VOLUME 84.7 FL (78-98); MEAN PLATELET VOLUME 9.2 FL (7.4-10.4); MONOCYTES # (AUTO) 0.8 X10'3 (0-0.9); MONOCYTES % (AUTO) 4.3 % (2-12); NEUTROPHILS # (AUTO) 16.5 X10'3 (1.8-7.7); NEUTROPHILS % (AUTO) 94.3 % (42-75); PLATELET COUNT 166 X10'3 (140-440); RED BLOOD COUNT 3.55 X10'6 (4.70-6.10); RED CELL DISTRIBUTION WIDTH 19.3 % (11.5-14.5); WHITE BLOOD COUNT 17.5 X10'3 (4.5-11.0)
[2019-02-24] MEDS: ALPRAZolam 0.25mg tablet CORPAK PRN ×2 (02:46→21:33)
[2019-02-24 02:52] LABS: ALANINE AMINOTRANSFERASE 619 U/L (12-78); ALBUMIN 2.3 G/DL (3.4-5.0); ALBUMIN/GLOBULIN RATIO 0.7 (1.1-1.5); ALKALINE PHOSPHATASE 598 IU/L (46-116); ANION GAP 11 (8-16); ASPARTATE AMINO TRANSFERASE 270 U/L (10-37); BILIRUBIN,TOTAL 0.8 MG/DL (0.1-1.0); BLOOD UREA NITROGEN 92 MG/DL (7-18); BUN/CREATININE RATIO 52.3 (5.4-32.0); CALCIUM 8.3 MG/DL (8.5-10.1); CHLORIDE 98 MMOL/L (99-107); CREATININE 1.76 MG/DL (0.60-1.10); GLUCOSE 166 MG/DL (70-104); PHOSPHORUS 6.9 MG/DL (2.3-4.5); SODIUM 135 MMOL/L (135-145); TOTAL CARBON DIOXIDE 25.7 MMOL/L (24-32); TOTAL PROTEIN 5.5 G/DL (6.4-8.2); eGFR 40 ML/MIN
[2019-02-24] MEDS: dexmedetomidin/NS 400mcg/100ml 100 ML IV SCH ×3 (03:00→19:00)
[2019-02-24 03:22] LABS: ANISOCYTOSIS 2+; PLATELET ESTIMATE NORMAL; POLYCHROMASIA FEW; TARGET CELLS FEW; TOTAL CELLS COUNTED 100; TOXIC GRANULATION 1+
[2019-02-24] MEDS: ipratropium/albuterol 3ml nebule NEB SCH ×6 (03:31→23:28)
[2019-02-24] MEDS: esmolol/sodium cl bag 250 ML IV SCH ×3 (05:06→20:19)
--- NOTE | 2019-02-24 06:36 | NUR ---
Patient in room [facility] 2010. I have received report from Shanell CHESTER and had the opportunity to ask questions and assume patient care. Addendum: 02/24/19 at 0636 by Keyanna Miranda RN Amended: Links added.
[2019-02-24] MEDS: rifaximin 20mg/ml oral suspension 60 ML BOTTLE CORPAK SCH ×2 (07:45→20:00)
[2019-02-24] MEDS: docusate sodium 100mg/10ml UD cup CORPAK SCH ×2 (07:45→20:00)
[2019-02-24] MEDS: ferrous sulfate 300mg/5ml UD oral liquid CORPAK SCH ×3 (07:45→17:44)
[2019-02-24] MEDS: amiodarone 200mg tablet PO SCH ×2 (07:46→20:00)
[2019-02-24] MEDS: midodrine 5mg tablet CORPAK SCH ×3 (07:46→23:55)
[2019-02-24] MEDS: lactobacillus rhamnosus 10,000 MMU CELLS/CAPSULE CORPAK SCH ×2 (07:46→20:37)
[2019-02-24] MEDS: gabapentin 100mg capsule CORPAK SCH (07:46)
[2019-02-24] MEDS: ceftazidime 1000mg in D5W 50ml 50 ML IV SCH (07:48)
[2019-02-24] MEDS: NYSTATIN CREAM - 30GM TUBE TP SCH ×2 (08:01→20:38)
[2019-02-24] MEDS: ESOMEPRAZOLE 40 MG VIAL IV SCH (08:01)
[2019-02-24] MEDS: ciprofloxacin lact 400MG/200ML 200 ML IV SCH (08:53)
--- NOTE | 2019-02-24 11:25 | NUR ---
Pt. tolerating bipap well. Dr. Rodney was in to see pt. Levo decreased to 0.6 @ 1000. No new orders received.
--- NOTE | 2019-02-24 18:10 | NUR ---
Problems reprioritized. Patient report given, questions answered & plan of care reviewed with Shanell CHESTER.
[2019-02-24] MEDS: insulin glargine (Lantus) pen - multi-dose SQ SCH (21:21)
[2019-02-24] MEDS: oxyCODONE IR 5mg (immed. release) tablet CORPAK PRN (21:33)
[2019-02-24] MEDS: NORepinephrine 8mg/ 250ml NS 250 ML IV SCH (22:10)
[2019-02-25] VITALS (24 sets, daily range): BP systolic 87–122; BP diastolic 40–70
[2019-02-25] MEDS: dexmedetomidin/NS 400mcg/100ml 100 ML IV SCH ×3 (01:10→22:20)
[2019-02-25 01:37] LABS: BASOPHILS # (AUTO) 0.1 X10'3 (0-0.2); BASOPHILS % (AUTO) 0.3 % (0-1); EOSINOPHILS % (AUTO) 0 % (0-6); HEMOGLOBIN 9.9 g/dl (14.0-17.9); LYMPHOCYTES # (AUTO) 0.3 X10'3 (1.1-4.8); LYMPHOCYTES % (AUTO) 1.1 % (21-51); MEAN CORPUSCULAR HEMOGLOBIN 27.2 PG (27.0-31.0); MEAN CORPUSCULAR HGB CONC 31.9 g/dL (33.0-36.5); MEAN CORPUSCULAR VOLUME 85.1 FL (78-98); MEAN PLATELET VOLUME 9.4 FL (7.4-10.4); MONOCYTES # (AUTO) 0.9 X10'3 (0-0.9); MONOCYTES % (AUTO) 3.3 % (2-12); NEUTROPHILS # (AUTO) 24.9 X10'3 (1.8-7.7); NEUTROPHILS % (AUTO) 95.3 % (42-75); PLATELET COUNT 175 X10'3 (140-440); RED BLOOD COUNT 3.64 X10'6 (4.70-6.10); RED CELL DISTRIBUTION WIDTH 19.4 % (11.5-14.5)
[2019-02-25 01:41] LABS: ALANINE AMINOTRANSFERASE 413 U/L (12-78); ALBUMIN 2.1 G/DL (3.4-5.0); ALBUMIN/GLOBULIN RATIO 0.7 (1.1-1.5); ALKALINE PHOSPHATASE 522 IU/L (46-116); ANION GAP 16 (8-16); ASPARTATE AMINO TRANSFERASE 76 U/L (10-37); BILIRUBIN,TOTAL 0.7 MG/DL (0.1-1.0); BLOOD UREA NITROGEN 119 MG/DL (7-18); BUN/CREATININE RATIO 59.5 (5.4-32.0); CALCIUM 7.6 MG/DL (8.5-10.1); CHLORIDE 96 MMOL/L (99-107); GLUCOSE 106 MG/DL (70-104); MAGNESIUM 1.9 MG/DL (1.5-2.4); PHOSPHORUS 8.1 MG/DL (2.3-4.5); POTASSIUM 4.5 MMOL/L (3.5-5.1); PREALBUMIN 15.6 MG/DL (19-36); SODIUM 135 MMOL/L (135-145); TOTAL CARBON DIOXIDE 23.1 MMOL/L (24-32); TOTAL PROTEIN 5.3 G/DL (6.4-8.2); eGFR 35 ML/MIN
[2019-02-25 01:46] LABS: WHITE BLOOD COUNT 26.1 X10'3 (4.5-11.0)
[2019-02-25] MEDS: mineral oil/petrolatum ophthal oint EACHEYE SCH ×4 (02:00→20:00)
[2019-02-25] MEDS: hydrocortisone sod succ/PF 100mg/2ml inj. IV SCH ×4 (02:00→21:14)
[2019-02-25] MEDS: lactulose 20gm/30ml cup CORPAK SCH ×4 (02:00→21:14)
[2019-02-25 03:00] LABS: ANISOCYTOSIS 2+; PLATELET ESTIMATE NORMAL; TOTAL CELLS COUNTED 100
[2019-02-25 03:01] LABS: POLYCHROMASIA FEW; TOXIC GRANULATION 1+
[2019-02-25] MEDS: acetaminophen 325mg/10.15ml oral unit dose solution CORPAK PRN (03:08)
[2019-02-25] MEDS: esmolol/sodium cl bag 250 ML IV SCH ×2 (03:08→09:57)
[2019-02-25] MEDS: ipratropium/albuterol 3ml nebule NEB SCH ×6 (04:19→23:08)
--- NOTE | 2019-02-25 06:43 | NUR ---
Patient in room [facility] 2010. I have received report from Shanell CHESTER and had the opportunity to ask questions and assume patient care. Addendum: 02/25/19 at 0643 by Keyanna Miranda RN Amended: Links added.
[2019-02-25] MEDS: ceftazidime 1000mg in D5W 50ml 50 ML IV SCH (08:07)
[2019-02-25] MEDS: NYSTATIN CREAM - 30GM TUBE TP SCH ×2 (08:07→21:15)
[2019-02-25] MEDS: ESOMEPRAZOLE 40 MG VIAL IV SCH (08:07)
[2019-02-25] MEDS: docusate sodium 100mg/10ml UD cup CORPAK SCH ×2 (08:09→21:14)
[2019-02-25] MEDS: ferrous sulfate 300mg/5ml UD oral liquid CORPAK SCH ×3 (08:09→17:13)
[2019-02-25] MEDS: insulin regular, human vial - multi-dose SQ SCH ×2 (08:13→13:57)
[2019-02-25] MEDS: lactobacillus rhamnosus 10,000 MMU CELLS/CAPSULE CORPAK SCH ×2 (08:23→21:15)
[2019-02-25] MEDS: midodrine 5mg tablet CORPAK SCH ×3 (08:24→23:34)
[2019-02-25] MEDS: gabapentin 100mg capsule CORPAK SCH (08:24)
[2019-02-25] MEDS: rifaximin 20mg/ml oral suspension 60 ML BOTTLE CORPAK SCH ×2 (08:24→21:14)
[2019-02-25] MEDS: amiodarone 200mg tablet PO SCH (08:25)
[2019-02-25] MEDS ORDERED: VANCOMYCIN 1,500MG inj. 1,500 MG in normal saline 250ml IV soln 280 ML IV ONE (08:35)
[2019-02-25] MEDS ORDERED: heparin 1,000unit/ml 10ml vial 10 ML IV ONE (08:38)
[2019-02-25] MEDS ORDERED: epoetin 20,000 units/ml inj IV ONE (08:40)
[2019-02-25] MEDS ORDERED: heparin 1,000 units/ml 10ml inj IV ONE (08:40)
[2019-02-25] MEDS ORDERED: albumin (Human) 5% 250ml 250 ML IV PRN (08:40)
[2019-02-25] MEDS ORDERED: heparin 1,000 units/ml 10ml inj HE ONE ×2 (08:45)
--- NOTE | 2019-02-25 11:42 | NUR ---
Dr. oDve wants to see how pt. does off Precedex. Full face mask for bipap applied to pt. Dr. Dove stated he wants pt. to remain on bipap today.
--- NOTE | 2019-02-25 13:36 | NUR ---
Pt. doing ok with Precedex off. HD almost done. PICC to be placed after HD.
--- NOTE | 2019-02-25 14:09 | NUR ---
Reassessment: Pt now on bipap again. He is tolerating tube feedings at goal. Last week had 6600ml removal from paracentesis. 600ml stool output on colace and lactulose; to continue per MD. Will monitor for TF tolerance and long-term PEG recs. Rec: 1. NGTF using Vital High Protein at 90ml/hr goal; to provide 2160ml fluid, 2160kcals, 1750ml free water, and 189g protein. 2. additional free water per rubber stamp assembler on HD 3. prealbumin Q M/, daily wts 4. routine bowel care as needed, hold with moderate rectal tube output 5. Advance diet as medically indicated when can pass swallow heart healthy/carb controlled per GROUP TEACHER recommendations Addendum: 02/25/19 at [address] Amended: Links added.
[2019-02-25] MEDS: NORepinephrine 8mg/ 250ml NS 250 ML IV SCH (15:38)
[2019-02-25] MEDS: ALPRAZolam 0.25mg tablet CORPAK PRN (17:52)
--- NOTE | 2019-02-25 18:09 | NUR ---
Pt. anxious. VSS though. Medicated with Xanax as ordered. Charge nurse aware.
--- NOTE | 2019-02-25 18:30 | NUR ---
Patient in room CICU 2010. I have received report from NEMO Briceño and had the opportunity to ask questions and assume patient care.
[2019-02-25] MEDS: insulin glargine (Lantus) pen - multi-dose SQ SCH (21:00)
[2019-02-25] MEDS: amiodarone 200mg tablet CORPAK SCH (21:14)
--- NOTE | 2019-02-25 21:35 | NUR ---
Patient's tube feeding pump's battery ; unknown how long it was off, approximately 30 minutes to an hour. Blood sugar was 58, 25 ml of dextrose 50% given and tube feedings restarted, BG rechecked and was 130. Lantus held for the night. Will continue to monitor.
[2019-02-25] MEDS: VANCOMYCIN 1,500MG inj. 1,500 MG in normal saline 250ml IV soln 280 ML IV SCH (22:11)
[2019-02-26] VITALS (24 sets, daily range): BP systolic 88–122; BP diastolic 46–74
[2019-02-26] MEDS: mineral oil/petrolatum ophthal oint EACHEYE SCH ×4 (01:18→20:00)
[2019-02-26] MEDS: hydrocortisone sod succ/PF 100mg/2ml inj. IV SCH ×4 (01:59→20:37)
[2019-02-26] MEDS: lactulose 20gm/30ml cup CORPAK SCH ×4 (01:59→20:36)
[2019-02-26] MEDS: insulin regular, human vial - multi-dose SQ SCH ×4 (02:03→20:54)
[2019-02-26 02:37] LABS: BASOPHILS % (AUTO) 0.1 % (0-1); EOSINOPHILS % (AUTO) 0 % (0-6); HEMATOCRIT 35.4 % (42.0-52.0); HEMOGLOBIN 11.4 g/dl (14.0-17.9); LYMPHOCYTES # (AUTO) 0.3 X10'3 (1.1-4.8); LYMPHOCYTES % (AUTO) 1.1 % (21-51); MEAN CORPUSCULAR HEMOGLOBIN 27.4 PG (27.0-31.0); MEAN CORPUSCULAR HGB CONC 32.1 g/dL (33.0-36.5); MEAN CORPUSCULAR VOLUME 85.2 FL (78-98); MONOCYTES # (AUTO) 1.5 X10'3 (0-0.9); MONOCYTES % (AUTO) 5.4 % (2-12); NEUTROPHILS # (AUTO) 25.7 X10'3 (1.8-7.7); NEUTROPHILS % (AUTO) 93.4 % (42-75); PLATELET COUNT 193 X10'3 (140-440); RED BLOOD COUNT 4.16 X10'6 (4.70-6.10); RED CELL DISTRIBUTION WIDTH 19.8 % (11.5-14.5)
[2019-02-26 02:43] LABS: ALANINE AMINOTRANSFERASE 351 U/L (12-78); ALBUMIN 2.1 G/DL (3.4-5.0); ALBUMIN/GLOBULIN RATIO 0.6 (1.1-1.5); ALKALINE PHOSPHATASE 570 IU/L (46-116); ANION GAP 10 (8-16); ASPARTATE AMINO TRANSFERASE 142 U/L (10-37); BLOOD UREA NITROGEN 73 MG/DL (7-18); CALCIUM 8.1 MG/DL (8.5-10.1); CHLORIDE 98 MMOL/L (99-107); CREATININE 1.46 MG/DL (0.60-1.10); GLUCOSE 156 MG/DL (70-104); MAGNESIUM 1.8 MG/DL (1.5-2.4); PHOSPHORUS 6.3 MG/DL (2.3-4.5); POTASSIUM 3.9 MMOL/L (3.5-5.1); SODIUM 134 MMOL/L (135-145); TOTAL CARBON DIOXIDE 25.6 MMOL/L (24-32); TOTAL PROTEIN 5.7 G/DL (6.4-8.2); eGFR 50 ML/MIN
[2019-02-26 02:46] LABS: WHITE BLOOD COUNT 27.5 X10'3 (4.5-11.0)
[2019-02-26] MEDS: ipratropium/albuterol 3ml nebule NEB SCH ×6 (02:46→23:18)
[2019-02-26 03:22] LABS: ANISOCYTOSIS 2+; PLATELET ESTIMATE NORMAL; POLYCHROMASIA FEW; TOTAL CELLS COUNTED 100
[2019-02-26] MEDS: dexmedetomidin/NS 400mcg/100ml 100 ML IV SCH ×3 (06:13→21:59)
--- NOTE | 2019-02-26 06:28 | NUR ---
Problems reprioritized. Patient report given, questions answered & plan of care reviewed with NEMO Briceño.
--- NOTE | 2019-02-26 06:30 | NUR ---
Patient in room [facility] 2010. I have received report from Cole CHESTER and had the opportunity to ask questions and assume patient care. Addendum: 02/26/19 at 0630 by Keyanna Miranda RN Amended: Links added.
[2019-02-26] MEDS: ALPRAZolam 0.25mg tablet CORPAK PRN (07:47)
[2019-02-26] MEDS: amiodarone 200mg tablet CORPAK SCH ×2 (07:50→20:36)
[2019-02-26] MEDS: gabapentin 100mg capsule CORPAK SCH (07:50)
[2019-02-26] MEDS: midodrine 5mg tablet CORPAK SCH ×2 (07:50→16:27)
[2019-02-26] MEDS: lactobacillus rhamnosus 10,000 MMU CELLS/CAPSULE CORPAK SCH ×2 (07:50→20:36)
[2019-02-26] MEDS: rifaximin 20mg/ml oral suspension 60 ML BOTTLE CORPAK SCH ×2 (07:51→20:36)
[2019-02-26] MEDS: ceftazidime 1000mg in D5W 50ml 50 ML IV SCH (07:51)
[2019-02-26] MEDS: ESOMEPRAZOLE 40 MG VIAL IV SCH (07:51)
[2019-02-26] MEDS: ferrous sulfate 300mg/5ml UD oral liquid CORPAK SCH ×3 (07:51→16:27)
[2019-02-26] MEDS: NYSTATIN CREAM - 30GM TUBE TP SCH ×2 (07:51→20:37)
[2019-02-26] MEDS: docusate sodium 100mg/10ml UD cup CORPAK SCH ×2 (08:00→20:36)
--- NOTE | 2019-02-26 08:48 | NUR ---
Dr. Dove in to see pt. Dr. Dove discussed plan of care with pt. Per Dr. Dove, pt. told Dr. Dove he wants everything done (intubation/trach) if needed. Pt. remains full code.
--- NOTE | 2019-02-26 09:04 | NUR ---
I have reviewed and agree with all medications administered and interventions performed by [place] Student(JULISSA PARRISH
[2019-02-26] MEDS: VANCOMYCIN 1,500MG inj. 1,500 MG in normal saline 250ml IV soln 280 ML IV SCH ×3 (10:16→22:15)
--- NOTE | 2019-02-26 11:23 | NUR ---
Pt's brother Negrito Monge called and requested that Zenaida Ski Lift Attendant call him at [phone]. RN paged Zenaida with his info.
--- NOTE | 2019-02-26 11:32 | NUR ---
I have reviewed and agree with all medications administered and interventions performed by [facility] Student(JULISSA PARRISH)
[2019-02-26] MEDS: oxyCODONE IR 5mg (immed. release) tablet CORPAK PRN (12:32)
--- NOTE | 2019-02-26 14:25 | NUR ---
Pt. off bipap and placed on 4L nc. SP02 stable.
--- NOTE | 2019-02-26 15:51 | NUR ---
Zenaida social science research assistant here to talk with pt. per brother Negrito's request.
--- NOTE | 2019-02-26 18:15 | NUR ---
Problems reprioritized. Patient report given, questions answered & plan of care reviewed with Cole CHESTER.
--- NOTE | 2019-02-26 18:30 | NUR ---
Patient in room CICU 2010. I have received report from NEMO Briceño and had the opportunity to ask questions and assume patient care.
[2019-02-26] MEDS: insulin glargine (Lantus) pen - multi-dose SQ SCH (20:55)
[2019-02-26] MEDS ORDERED: VANCOMYCIN LEVEL IV ONE (21:30)
[2019-02-26] MEDS: NORepinephrine 8mg/ 250ml NS 250 ML IV SCH (22:10)
[2019-02-27] VITALS (23 sets, daily range): BP systolic 89–117; BP diastolic 40–64
[2019-02-27] MEDS: midodrine 5mg tablet CORPAK SCH ×3 (00:42→16:25)
[2019-02-27] MEDS: mineral oil/petrolatum ophthal oint EACHEYE SCH ×4 (01:17→20:00)
[2019-02-27] MEDS: lactulose 20gm/30ml cup CORPAK SCH ×4 (02:11→20:36)
[2019-02-27] MEDS: hydrocortisone sod succ/PF 100mg/2ml inj. IV SCH ×3 (02:12→20:36)
[2019-02-27] MEDS: insulin regular, human vial - multi-dose SQ SCH ×4 (02:26→20:45)
[2019-02-27] MEDS: ipratropium/albuterol 3ml nebule NEB SCH ×5 (02:40→19:12)
[2019-02-27 03:01] LABS: BASOPHILS # (AUTO) 0.1 X10'3 (0-0.2); BASOPHILS % (AUTO) 0.4 % (0-1); EOSINOPHILS % (AUTO) 0 % (0-6); HEMATOCRIT 30.8 % (42.0-52.0); HEMOGLOBIN 10.1 g/dl (14.0-17.9); LYMPHOCYTES # (AUTO) 0.3 X10'3 (1.1-4.8); LYMPHOCYTES % (AUTO) 1.2 % (21-51); MEAN CORPUSCULAR HEMOGLOBIN 27.8 PG (27.0-31.0); MEAN CORPUSCULAR HGB CONC 32.7 g/dL (33.0-36.5); MEAN CORPUSCULAR VOLUME 85.1 FL (78-98); MEAN PLATELET VOLUME 9.5 FL (7.4-10.4); MONOCYTES # (AUTO) 1.7 X10'3 (0-0.9); MONOCYTES % (AUTO) 7.6 % (2-12); NEUTROPHILS # (AUTO) 20.1 X10'3 (1.8-7.7); NEUTROPHILS % (AUTO) 90.8 % (42-75); PLATELET COUNT 171 X10'3 (140-440); RED BLOOD COUNT 3.62 X10'6 (4.70-6.10); RED CELL DISTRIBUTION WIDTH 19.9 % (11.5-14.5); WHITE BLOOD COUNT 22.1 X10'3 (4.5-11.0)
[2019-02-27 03:13] LABS: ALANINE AMINOTRANSFERASE 278 U/L (12-78); ALBUMIN 1.9 G/DL (3.4-5.0); ALBUMIN/GLOBULIN RATIO 0.6 (1.1-1.5); ALKALINE PHOSPHATASE 477 IU/L (46-116); ANION GAP 16 (8-16); ASPARTATE AMINO TRANSFERASE 80 U/L (10-37); BILIRUBIN,TOTAL 0.8 MG/DL (0.1-1.0); BLOOD UREA NITROGEN 104 MG/DL (7-18); CALCIUM 7.7 MG/DL (8.5-10.1); CHLORIDE 98 MMOL/L (99-107); CREATININE 1.89 MG/DL (0.60-1.10); GLUCOSE 173 MG/DL (70-104); MAGNESIUM 1.9 MG/DL (1.5-2.4); PHOSPHORUS 7.5 MG/DL (2.3-4.5); POTASSIUM 3.9 MMOL/L (3.5-5.1); SODIUM 136 MMOL/L (135-145); TOTAL CARBON DIOXIDE 21.9 MMOL/L (24-32); TOTAL PROTEIN 5.2 G/DL (6.4-8.2); eGFR 37 ML/MIN
[2019-02-27] MEDS: dexmedetomidin/NS 400mcg/100ml 100 ML IV SCH ×3 (05:52→21:38)
--- NOTE | 2019-02-27 06:30 | NUR ---
Patient in room CICU 2010. I have received report from Diana CHESTER and had the opportunity to ask questions and assume patient care.
--- NOTE | 2019-02-27 06:39 | NUR ---
Problems reprioritized. Patient report given, questions answered & plan of care reviewed with NEMO Abreu.
--- NOTE | 2019-02-27 07:45 | NUR ---
headliner installer Rebecca at bedside to assist with NT suctioning patient.
[2019-02-27] MEDS ORDERED: heparin 1,000 units/ml 10ml inj IV ONE (08:00)
[2019-02-27] MEDS ORDERED: epoetin 20,000 units/ml inj IV ONE (08:00)
[2019-02-27] MEDS: docusate sodium 100mg/10ml UD cup CORPAK SCH ×2 (08:00→20:36)
[2019-02-27] MEDS ORDERED: albumin (Human) 5% 250ml 250 ML IV PRN (08:00)
[2019-02-27] MEDS ORDERED: heparin 1,000unit/ml 10ml vial 10 ML IV ONE (08:00)
[2019-02-27] MEDS ORDERED: heparin 1,000 units/ml 10ml inj HE ONE ×2 (08:00)
[2019-02-27] MEDS: ESOMEPRAZOLE 40 MG VIAL IV SCH (08:50)
--- NOTE | 2019-02-27 08:50 | NUR ---
Dialysis nurse at bedside to begin treatment.
[2019-02-27] MEDS: lactobacillus rhamnosus 10,000 MMU CELLS/CAPSULE CORPAK SCH ×2 (08:53→20:36)
[2019-02-27] MEDS: rifaximin 20mg/ml oral suspension 60 ML BOTTLE CORPAK SCH ×2 (08:54→20:36)
[2019-02-27] MEDS: amiodarone 200mg tablet CORPAK SCH ×2 (08:54→20:36)
[2019-02-27] MEDS: ferrous sulfate 300mg/5ml UD oral liquid CORPAK SCH ×3 (08:54→18:14)
[2019-02-27] MEDS: gabapentin 100mg capsule CORPAK SCH (08:54)
[2019-02-27] MEDS ORDERED: VANCOMYCIN LEVEL IV ONE (09:30)
[2019-02-27] MEDS: ceftazidime 1000mg in D5W 50ml 50 ML IV SCH (09:35)
[2019-02-27] MEDS: NYSTATIN CREAM - 30GM TUBE TP SCH ×2 (09:40→20:39)
--- NOTE | 2019-02-27 10:00 | NUR ---
Lab called to notify RN that vanco trough that was just sent down to lab had been cancelled by pharmacy. Will check with pharmacist before giving Vanco dose.
--- NOTE | 2019-02-27 12:00 | NUR ---
Spoke with Kee in pharmacy, he gave me the go ahead to give the 1000 am vanco trough as soon as dialysis is complete. Addendum: 02/27/19 at 1837 by Lois Aragon RN Given the go ahead to give Vanco dose. Trough not needed at that time per Kee in pharmacy.
--- NOTE | 2019-02-27 12:54 | NUR ---
Patient still receiving dialysis.
[2019-02-27] MEDS: vancomycin/NS 1 GM ADD-VANTAGE 250 ML IV SCH (14:18)
--- NOTE | 2019-02-27 18:31 | NUR ---
Problems reprioritized. Patient report given, questions answered & plan of care reviewed with Diana CHESTER.
--- NOTE | 2019-02-27 18:32 | NUR ---
Patient in room CICU 2007. I have received report from NEMO Abreu and had the opportunity to ask questions and assume patient care.
[2019-02-27] MEDS: insulin glargine (Lantus) pen - multi-dose SQ SCH (20:51)
[2019-02-28] VITALS (24 sets, daily range): BP systolic 85–130; BP diastolic 43–71
[2019-02-28] MEDS: midodrine 5mg tablet CORPAK SCH ×3 (00:16→15:21)
[2019-02-28] MEDS: ipratropium/albuterol 3ml nebule NEB SCH ×7 (00:21→23:08)
[2019-02-28] MEDS: mineral oil/petrolatum ophthal oint EACHEYE SCH ×5 (02:00→20:00)
[2019-02-28] MEDS: lactulose 20gm/30ml cup CORPAK SCH ×4 (02:13→19:08)
[2019-02-28] MEDS: insulin regular, human vial - multi-dose SQ SCH ×3 (02:17→15:17)
[2019-02-28] MEDS: dexmedetomidin/NS 400mcg/100ml 100 ML IV SCH ×2 (02:32→13:24)
[2019-02-28 03:38] LABS: ALANINE AMINOTRANSFERASE 253 U/L (12-78); ALBUMIN/GLOBULIN RATIO 0.6 (1.1-1.5); ALKALINE PHOSPHATASE 445 IU/L (46-116); ANION GAP 10 (8-16); ASPARTATE AMINO TRANSFERASE 110 U/L (10-37); BLOOD UREA NITROGEN 65 MG/DL (7-18); BUN/CREATININE RATIO 47.1 (5.4-32.0); CALCIUM 7.9 MG/DL (8.5-10.1); CHLORIDE 101 MMOL/L (99-107); CREATININE 1.38 MG/DL (0.60-1.10); GLUCOSE 122 MG/DL (70-104); MAGNESIUM 1.7 MG/DL (1.5-2.4); PHOSPHORUS 5.7 MG/DL (2.3-4.5); POTASSIUM 3.5 MMOL/L (3.5-5.1); SODIUM 138 MMOL/L (135-145); TOTAL CARBON DIOXIDE 27.1 MMOL/L (24-32); TOTAL PROTEIN 5.2 G/DL (6.4-8.2); VANCOMYCIN,RANDOM 37.3 UG/ML; eGFR 53 ML/MIN
[2019-02-28 03:39] LABS: BASOPHILS % (AUTO) 0.2 % (0-1); EOSINOPHILS % (AUTO) 0 % (0-6); HEMATOCRIT 28.8 % (42.0-52.0); HEMOGLOBIN 9.2 g/dl (14.0-17.9); LYMPHOCYTES # (AUTO) 0.3 X10'3 (1.1-4.8); LYMPHOCYTES % (AUTO) 1.6 % (21-51); MEAN CORPUSCULAR HEMOGLOBIN 27.2 PG (27.0-31.0); MEAN CORPUSCULAR HGB CONC 31.8 g/dL (33.0-36.5); MEAN CORPUSCULAR VOLUME 85.4 FL (78-98); MEAN PLATELET VOLUME 9.4 FL (7.4-10.4); MONOCYTES # (AUTO) 1.4 X10'3 (0-0.9); MONOCYTES % (AUTO) 8.4 % (2-12); NEUTROPHILS % (AUTO) 89.8 % (42-75); PLATELET COUNT 145 X10'3 (140-440); RED BLOOD COUNT 3.37 X10'6 (4.70-6.10); RED CELL DISTRIBUTION WIDTH 19.6 % (11.5-14.5); WHITE BLOOD COUNT 16.7 X10'3 (4.5-11.0)
--- NOTE | 2019-02-28 06:17 | NUR ---
Problems reprioritized. Patient report given, questions answered & plan of care reviewed with NEMO Diallo.
--- NOTE | 2019-02-28 06:25 | NUR ---
Patient in room CICU 2008. I have received report from Diana CHESTER and had the opportunity to ask questions and assume patient care.
[2019-02-28 07:12] LABS: ANISOCYTOSIS 2+; PLATELET ESTIMATE NORMAL
[2019-02-28 07:13] LABS: HYPOCHROMASIA 1+
[2019-02-28] MEDS: hydrocortisone sod succ/PF 100mg/2ml inj. IV SCH ×2 (08:06→19:09)
[2019-02-28] MEDS: amiodarone 200mg tablet CORPAK SCH ×2 (08:06→19:08)
[2019-02-28] MEDS: ceftazidime 1000mg in D5W 50ml 50 ML IV SCH (08:06)
[2019-02-28] MEDS: docusate sodium 100mg/10ml UD cup CORPAK SCH ×2 (08:07→19:08)
[2019-02-28] MEDS: ferrous sulfate 300mg/5ml UD oral liquid CORPAK SCH ×3 (08:07→16:39)
[2019-02-28] MEDS: gabapentin 100mg capsule CORPAK SCH (08:07)
[2019-02-28] MEDS: NYSTATIN CREAM - 30GM TUBE TP SCH ×2 (08:07→19:09)
[2019-02-28] MEDS: lactobacillus rhamnosus 10,000 MMU CELLS/CAPSULE CORPAK SCH ×2 (08:07→19:08)
[2019-02-28] MEDS: ESOMEPRAZOLE 40 MG VIAL IV SCH (09:03)
[2019-02-28] MEDS: rifaximin 20mg/ml oral suspension 60 ML BOTTLE CORPAK SCH ×2 (09:04→19:08)
[2019-02-28] MEDS: vancomycin/NS 1 GM ADD-VANTAGE 250 ML IV SCH (10:00)
--- NOTE | 2019-02-28 10:14 | NUR ---
The charted stool amounts of 950mL from 0600 to 0900 are charted in error. Stool amount will be charted at the end of the shift unless otherwise indicated. Addendum: 02/28/19 at 1015 by Isidro Larson RN Amended: Links added.
[2019-02-28] MEDS ORDERED: dexmedetomidine inj. 400 MCG in normal saline 100ml IV soln 100 ML IV PRN (12:50)
[2019-02-28] MEDS ORDERED: heparin 1,000unit/ml 10ml vial 10 ML IV ONE (13:31)
[2019-02-28] MEDS ORDERED: albumin (Human) 5% 250ml 250 ML IV PRN (13:35)
[2019-02-28] MEDS ORDERED: epoetin 20,000 units/ml inj IV ONE (13:35)
[2019-02-28] MEDS ORDERED: heparin 1,000 units/ml 10ml inj IV ONE (13:35)
[2019-02-28] MEDS ORDERED: heparin 1,000 units/ml 10ml inj HE ONE ×2 (13:35)
--- NOTE | 2019-02-28 15:11 | NUR ---
reassessment: tolerating TF at goal. LBM 02/27; 3800ml rectal tube output error per RN. Receiving lactulose and colace. Will continue to monitor. Rec: 1. NGTF using Vital High Protein at 90ml/hr goal; to provide 2160ml fluid, 2160kcals, 1750ml free water, and 189g protein. 2. additional free water per stereo equipment salesperson on HD 3. prealbumin Q /, daily wts 4. routine bowel care as needed, hold with moderate rectal tube output 5. Advance diet as medically indicated when can pass swallow heart healthy/carb controlled per ROUTE AIDE recommendations Addendum: 02/28/19 at [address] Amended: Links added.
--- NOTE | 2019-02-28 18:30 | NUR ---
Problems reprioritized. Patient report given, questions answered & plan of care reviewed with Chaz CHESTER.
--- NOTE | 2019-02-28 18:36 | NUR ---
Patient in room CICU 2008. I have received report from Isidro CHESTER and had the opportunity to ask questions and assume patient care.
[2019-02-28] MEDS: insulin glargine (Lantus) pen - multi-dose SQ SCH (21:00)
[2019-02-28] MEDS ORDERED: VANCOMYCIN LEVEL IV ONE (21:30)
[2019-02-28] MEDS: NORepinephrine 8mg/ 250ml NS 250 ML IV SCH (22:10)
[2019-03-01] VITALS: BP 116/57
[2019-03-01] MEDS ORDERED: VANCOMYCIN LEVEL IV SCH (03:00)
[2019-03-01] MEDS ORDERED: vancomycin/NS 1 GM ADD-VANTAGE 250 ML IV PRN (06:00)
== END 2019-03-01 00:10 | DRG 853 ==
LOC: ER 12:56 → CICU 2S 17:16
PROVIDERS: ADMIT Physician Assistant; ATTEND Orthopaedic Surgery
PROC: 5A1D70Z Performance of Urinary Filtration, Intermittent, Less than 6 Hours Per Day (ICD-10-PCS; 2019-02-11)
PROC: 0W9G3ZZ Drainage of Peritoneal Cavity, Percutaneous Approach (ICD-10-PCS; principal; 2019-02-12)
PROC: 5A09357 Assistance with Respiratory Ventilation, Less than 24 Consecutive Hours, Continuous Positive Airway Pressure (ICD-10-PCS; 2019-02-12)
PROC: 5A1D70Z Performance of Urinary Filtration, Intermittent, Less than 6 Hours Per Day (ICD-10-PCS; 2019-02-13)
PROC: 5A09357 Assistance with Respiratory Ventilation, Less than 24 Consecutive Hours, Continuous Positive Airway Pressure (ICD-10-PCS; 2019-02-14)
PROC: 0B9M8ZZ Drainage of Bilateral Lungs, Via Natural or Artificial Opening Endoscopic (ICD-10-PCS; 2019-02-15)
PROC: 5A1955Z Respiratory Ventilation, Greater than 96 Consecutive Hours (ICD-10-PCS; 2019-02-15)
PROC: 0BH17EZ Insertion of Endotracheal Airway into Trachea, Via Natural or Artificial Opening (ICD-10-PCS; 2019-02-15)
PROC: 5A1D70Z Performance of Urinary Filtration, Intermittent, Less than 6 Hours Per Day (ICD-10-PCS; 2019-02-15)
PROC: 5A2204Z Restoration of Cardiac Rhythm, Single (ICD-10-PCS; 2019-02-16)
PROC: 5A1D70Z Performance of Urinary Filtration, Intermittent, Less than 6 Hours Per Day (ICD-10-PCS; 2019-02-18)
PROC: 0W9G3ZZ Drainage of Peritoneal Cavity, Percutaneous Approach (ICD-10-PCS; 2019-02-19)
PROC: 5A1D70Z Performance of Urinary Filtration, Intermittent, Less than 6 Hours Per Day (ICD-10-PCS; 2019-02-20)
PROC: 30233N1 Transfusion of Nonautologous Red Blood Cells into Peripheral Vein, Percutaneous Approach (ICD-10-PCS; 2019-02-20)
PROC: 0W9G3ZZ Drainage of Peritoneal Cavity, Percutaneous Approach (ICD-10-PCS; 2019-02-22)
PROC: 5A1D70Z Performance of Urinary Filtration, Intermittent, Less than 6 Hours Per Day (ICD-10-PCS; 2019-02-22)
PROC: 5A09457 Assistance with Respiratory Ventilation, 24-96 Consecutive Hours, Continuous Positive Airway Pressure (ICD-10-PCS; 2019-02-23)
PROC: 02HV33Z Insertion of Infusion Device into Superior Vena Cava, Percutaneous Approach (ICD-10-PCS; 2019-02-25)
PROC: 4A02X4A Measurement of Cardiac Electrical Activity, Guidance, External Approach (ICD-10-PCS; 2019-02-25)
PROC: B548ZZA Ultrasonography of Superior Vena Cava, Guidance (ICD-10-PCS; 2019-02-25)
PROC: 5A1D70Z Performance of Urinary Filtration, Intermittent, Less than 6 Hours Per Day (ICD-10-PCS; 2019-02-25)
PROC: 5A09357 Assistance with Respiratory Ventilation, Less than 24 Consecutive Hours, Continuous Positive Airway Pressure (ICD-10-PCS; 2019-02-26)
PROC: 5A1D70Z Performance of Urinary Filtration, Intermittent, Less than 6 Hours Per Day (ICD-10-PCS; 2019-02-27)
PROC: 5A1D70Z Performance of Urinary Filtration, Intermittent, Less than 6 Hours Per Day (ICD-10-PCS; 2019-02-28)
DX: A41.9 Sepsis, unspecified organism (principal); R65.21 Severe sepsis with septic shock; J15.1 Pneumonia due to Pseudomonas; J96.01 Acute respiratory failure with hypoxia; I13.0 Hypertensive heart and chronic kidney disease with heart failure and stage 1 through stage 4 chronic kidney disease, or unspecified chronic kidney disease; I48.92 Unspecified atrial flutter; K76.6 Portal hypertension; N17.9 Acute kidney failure, unspecified; R18.8 Other ascites; I47.1 Supraventricular tachycardia; E11.22 Type 2 diabetes mellitus with diabetic chronic kidney disease; I48.91 Unspecified atrial fibrillation; I50.9 Heart failure, unspecified; J45.909 Unspecified asthma, uncomplicated; K74.69 Other cirrhosis of liver; K75.81 Nonalcoholic steatohepatitis (NASH); K80.20 Calculus of gallbladder without cholecystitis without obstruction; M19.90 Unspecified osteoarthritis, unspecified site; N18.9 Chronic kidney disease, unspecified; N20.0 Calculus of kidney; T38.0X5A Adverse effect of glucocorticoids and synthetic analogues, initial encounter; Z16.19 Resistance to other specified beta lactam antibiotics; Z51.5 Encounter for palliative care; F32.9 Major depressive disorder, single episode, unspecified; F41.9 Anxiety disorder, unspecified; K76.9 Liver disease, unspecified; Z91.018 Allergy to other foods; Z79.4 Long term (current) use of insulin; Z86.14 Personal history of Methicillin resistant Staphylococcus aureus infection; Z79.899 Other long term (current) drug therapy; Y92.89 Other specified places as the place of occurrence of the external cause
CPT/HCPCS: 31645; 36415; 36569; 36600; 49083; 71045; 71250; 74018; 74176; 76705; 76937; 80048; 80053; 80202; 81001; 82140; 82803; 82810; 82945; 82948; 83605; 83615; 83735; 84100; 84132; 84134; 84145; 84157; 84439; 84443; 85018; 85025; 85027; 85610; 85730; 86885; 86900; 86901; 86920; 87040; 87070; 87075; 87077; 87088; 87102; 87186; 87340; 89051; 90935; 90947; 92508; 92616; 93005; 94002; 94003; 94640; 94660; 94667; 94668; 94760; 97110; 97162; 97530; 99285; C9113; G0257; G0378; J0153; J0282; J0713; J0744; J0885; J1335; J1450; J1644; J1720; J1815; J2150; J2185; J2250; J2405; J3260; J3370; J3475; J3490; J7030; J7040; P9016; P9045; P9047